=== PATIENT | male | born 1960 | race Caucasian/White ===

== ENCOUNTER 2024-01-05 10:39 | Outpatient (CLI) | payer OTHER, SELFPAY ==
[2024-01-05 11:04] LABS: Basophils Absolute Auto 0.05 K/mm3 (0.00-0.10); Basophils Percent Auto 0.5 % (0.0-1.0); Eosinophils Absolute Auto 0.17 K/mm3 (0.02-0.50); Eosinophils Percent Auto 1.6 % (1.0-6.0); Hematocrit 31.9 % (37.0-46.0); Hemoglobin 10.3 g/dL (12.4-15.3); Immature Granulocyte Absolute 0.08 K/mm3 (0.00-0.00); Immature Granulocyte Percent A 0.8 % (0.0-0.0); Lymphocytes Absolute Auto 2.12 K/mm3 (1.10-4.50); Lymphocytes Percent Auto 20.4 % (18.0-42.0); Mean Corpuscular HGB Conc 32.3 g/dL (32-36); Mean Corpuscular Hemoglobin 25.2 pg (27.0-31.0); Mean Platelet Volume 7.7 fl (8.7-11.0); Monocytes Absolute Auto 0.57 K/mm3 (0.10-0.90); Monocytes Percent Auto 5.5 % (2.0-11.0); Neutrophils Absolute Auto 7.41 K/mm3 (1.70-7.20); Neutrophils Percent Auto 71.2 % (50.0-70.0); Platelet Count Result 216 K/mm3 (150-420); Red Blood Count 4.09 M/mm3 (4.70-6.10); White Blood Count 10.4 K/mm3 (4.8-10.8)
[2024-01-05 11:53] LABS: Alanine Aminotransferase 17 U/L (16-63); Albumin Level 2.9 g/dL (3.4-5.0); Alkaline Phosphatase 87 U/L (46-116); Anion Gap 8 mmol/L (4-12); Aspartate Amino Transferase 11 U/L (15-37); Bilirubin,Total 0.3 mg/dL (0.00-1.00); Blood Urea Nitrogen 31 mg/dL (7-18); Carbon Dioxide 28 mmol/L (21-32); Chloride 93 mmol/L (98-108); Cholesterol 104 mg/dL (0-200); Estimated Glomerular Filt Rate > 60; Glucose 136 mg/dL (70-99); HDL Direct 38 mg/dL (40-60); LDL Cholesterol Calculated 30 mg/dL (<130); Osmolality Calculated 276 mOsm/kg (285-295); Potassium 4.9 mmol/L (3.5-5.1); Prostate Specific Antigen 0.6 ng/mL (< OR = 4.0); Sodium 129 mmol/L (136-145); Total Protein 7.7 g/dL (6.4-8.2); Triglycerides 181 mg/dL (0-150); Uric Acid 3.4 mg/dL (3.5-7.2)
[2024-01-05 11:55] LABS: Thyroid Stimulating Hormone Reflex < 0.01 u/IU/mL (0.36-3.74)
== END 2024-01-05 10:40 | disposition home or self-care (01) ==
LOC: CHSLAB 10:46
PROVIDERS: PCP Family Medicine; Visit Provider Family Medicine
DX: E03.9 Hypothyroidism, unspecified (principal); N40.0 Benign prostatic hyperplasia without lower urinary tract symptoms; R35.1 Nocturia; M10.9 Gout, unspecified; I50.9 Heart failure, unspecified; Z12.5 Encounter for screening for malignant neoplasm of prostate
CPT/HCPCS: 36415; 80053; 80061; 84153; 84439; 84443; 84550; 85025; G0103

== ENCOUNTER 2024-01-06 09:50 | Outpatient (CLI) | payer OTHER, SELFPAY ==
--- NOTE | 2024-01-06 11:21 | SIXMINWLK ---
Six Minute Walk Test PFT: Six Minute Walk Start: 01/06/24 11:16 Freq: Status: Active Protocol: RPE Activity Type Activity Date Activity User E-sign Co-sign Detail Recorded Client Recorded Date Recorded By Document 01/06/24 10:02 RES [id number] 01/06/24 11:21 RES 01/06/24 10:02 Six Minute Walk Gender M Age 64 Race White Test Phase Resting Oxygen Delivery Room Air Fraction of Inspired Oxygen (%) 21 Pulse Oximetry (90-100 %) 96 Pulse Rate (60-100 beats/min) 67 Activity Tolerance Good Rating of Perceived Dyspnea (PD) +2 Mild, Some Difficulty, Noticeable to the Observer Rate of Perceived Exertion (1) Very Light Activity Stopped/Paused During Testing - Enter Yes Comment if Yes Symptoms at End of Test Other Symptoms Other Symptoms At End of Test Patient took a few steps & stated he needed to stop the test & sit due SOB
== END 2024-01-06 09:51 | disposition home or self-care (01) ==
PROVIDERS: PCP Family Medicine; Visit Provider Family Medicine
DX: J43.9 Emphysema, unspecified (principal)
CPT/HCPCS: 94060; 94726; 94729

== ENCOUNTER 2024-01-07 14:59 | Outpatient (CLI) | payer OTHER, SELFPAY ==
[2024-01-07 15:44] LABS: Occult Blood Negative (Negative)
== END 2024-01-07 15:00 | disposition home or self-care (01) ==
PROVIDERS: PCP Family Medicine; Visit Provider Family Medicine
DX: R19.7 Diarrhea, unspecified (principal)
CPT/HCPCS: 82272

== ENCOUNTER 2024-07-08 13:04 | Emergency (ER) | payer OTHER, SELFPAY ==
[2024-07-08] VITALS (25 sets, daily range): BP systolic 76–135; BP diastolic 42–90; PULSE 59–81; RESP 13–26; TEMP 36.6; O2SAT 95–100
--- NOTE | ~2024-07-08 | CT_ITS ---
CT diagnostic chest wo con Ordering provider: Marck Graves MD History: 64 years Male with . weakness/ dyspnea x1 week; worsening . Comparison: None. Technique: CT chest without IV contrast.Radiation reduction technique utilized.The dose-length produc t was 331.3 mGy-cm. FINDINGS: VISUALIZED THORACIC INLET: Normal. MEDIASTINUM: Aorta/coronary arteries: Mild atheromatous disease. Heart/other: The heart is not enlarged. Lymph nodes:. Paratracheal lymph node is seen measuring 2.1 x 1 cm. Small prevascular lymph nodes are noted. Subcarinal lymph node is seen measuring 2.2 x 1.7 cm. LUNGS: Soft tissue density in the right lower lobe medially which may indicate atelectasis. Pneumonia and a mass are in the differential. Small right pleural effusion is seen. Tree-in-bud appearance is seen in the right upper lobe posteriorly which is most likely post infection. Atelectatic areas seen in the middle lobe and lingula. No pulmonary nodules. No pneumothorax. VISUALIZED UPPER ABDOMEN: Atherosclerotic changes of the aorta and branches. Otherwise, the visualize d upper abdomen is normal. MUSCULOSKELETAL: Soft tissues: The superficial soft tissues are normal. Bones: Age appropriate degenerative changes of the spine. IMPRESSION: 1. Soft tissue density in the right lower lobe posteromedially suggestive of atelectasis involving t he majority of the right lower lobe. Pneumonia or underlying mass cannot be excluded.Follow-up and i f clinically warranted further evaluation is advised.. 2. Minimal tree-in-bud appearance in the right upper lobe posteriorly which may be post infection. 3. Lymphadenopathy in the mediastinum. Reviewed, dictated and finalized at location A. IMPRESSION: 1. Soft tissue density in the right lower lobe posteromedially suggestive of a telectasis involving the majority of the right lower lobe. Pneumonia or underly ing mass cannot be excluded.Follow-up and if clinically warranted further eval uation is advised.. 2. Minimal tree-in-bud appearance in the right upper lobe posteriorly which ma y be post infection. 3. Lymphadenopathy in the mediastinum.
--- NOTE | ~2024-07-08 | XR_ITS ---
EXAMINATION: XR chest 1V portable DATE: 07/08/2024 13:23 INDICATION: One week of worsening generalized weakness TECHNIQUE: frontal view of the chest was obtained. COMPARISON: Chest radiograph dated 06/08/2009 FINDINGS: There is asymmetric volume loss in the right hemithorax with depression of the right hilum and triang ular retrocardiac opacity with well-defined lateral margin which projects over the heart at the media l lower lung zone consistent with right lower lobe collapse. There is additional linear discoid atele ctasis/scarring near the right costophrenic angle. Likely compensatory hyperexpansion of the right up per lobe with some increased lucency and architectural distortion in the right upper lung zone. Left lung is clear. No pneumothorax or left pleural effusion. There is blunting at the right costophrenic angle which could be related to the previous noted right lower lobe collapse versus a very small righ t pleural effusion. No evident pulmonary edema. Heart size is normal with mild rightward shift the he art and mediastinum resulting from the bone loss in right hemithorax. IMPRESSION: 1. Right lower lobe collapse of indeterminate etiology with additional discoid atelectasis in the rig ht middle lobe. Correlate clinically and would recommend either radiographic follow-up to resolution, pulmonary toilet fissures concerning for mucous plugging or further evaluation with either bronchosc opy or contrast enhanced CT as clinically indicated. Reviewed, dictated and finalized at location A. IMPRESSION: 1. Right lower lobe collapse of indeterminate etiology with additional discoid atelectasis in the right middle lobe. Correlate clinically and would recommend either radiographic follow-up to resolution, pulmonary toilet fissures concerni ng for mucous plugging or further evaluation with either bronchoscopy or contra st enhanced CT as clinically indicated.
--- NOTE | 2024-07-08 13:15 | ECG_ITS ---
Test Date: 2024-07-08 14:07:51 Measurements Intervals [place] Rate: 61 P: -3 NV: 169 QRS: 49 QRSD: 118 T: 58 QT: 394 QTc: 397 Interpretive Statements SINUS RHYTHM EARLY PRECORDIAL R/S TRANSITION No previous ECG available for comparison Electronically Signed On 07-08-2024 17:19:22 CDT by Jorge Marley M.D.
[2024-07-08] MEDS: SODIUM CHLORIDE 0.9% IV 1,000 ML 999 ML IV CONT ×3 (13:42→17:00)
[2024-07-08 13:57] LABS: Basophils Absolute Auto 0.03 K/mm3 (0.00-0.10); Basophils Percent Auto 0.4 % (0.0-1.0); Eosinophils Absolute Auto 0.07 K/mm3 (0.02-0.50); Eosinophils Percent Auto 0.8 % (1.0-6.0); Hematocrit 27.9 % (37.0-46.0); Hemoglobin 8.7 g/dL (12.4-15.3); Immature Granulocyte Absolute 0.03 K/mm3 (0.00-0.00); Immature Granulocyte Percent A 0.4 % (0.0-0.0); Lymphocytes Percent Auto 13.2 % (18.0-42.0); Mean Corpuscular HGB Conc 31.2 g/dL (32-36); Mean Corpuscular Hemoglobin 24.8 pg (27.0-31.0); Mean Corpuscular Volume 79.5 fL (78.0-102.0); Mean Platelet Volume 8.9 fl (8.7-11.0); Monocytes Absolute Auto 0.29 K/mm3 (0.10-0.90); Monocytes Percent Auto 3.5 % (2.0-11.0); Neutrophils Percent Auto 81.7 % (50.0-70.0); Platelet Count Result 180 K/mm3 (150-420); Red Blood Count 3.51 M/mm3 (4.70-6.10); Red Cell Distribution Width 18.5 % (11.6-14.4); White Blood Count 8.3 K/mm3 (4.8-10.8)
[2024-07-08 14:05] LABS: Alanine Aminotransferase 13 U/L (6-50); Albumin Level 4.2 g/dL (3.5-5.1); Alkaline Phosphatase 50 U/L (38-126); Anion Gap 20 mmol/L (4-12); Aspartate Amino Transferase 24 U/L (17-59); Bilirubin,Total 0.3 mg/dL (0.2-1.3); Blood Urea Nitrogen > 120 mg/dL (9-20); Calcium 8.2 mg/dL (8.4-10.2); Carbon Dioxide 11 mmol/L (22-30); Chloride 99 mmol/L (98-107); Estimated Glomerular Filt Rate 7; Glucose 113 mg/dL (65-110); Osmolality Calculated 309 mOsm/kg (285-295); Sodium 130 mmol/L (137-145); Total Protein 8.4 g/dL (6.3-8.2)
[2024-07-08 14:06] LABS: Lactic Acid Reflex 0.6 mmol/L (0.4-2.0)
[2024-07-08 14:17] LABS: NT Pro B Type Natriuretic Pept 342 pg/mL (19.9-100); Troponin I < 0.012 ng/mL (0.000-0.034)
[2024-07-08 14:23] LABS: Estimated CRCL calculation 9 ml/min
[2024-07-08 14:25] LABS: Potassium 6.9 mmol/L (3.4-5.0)
[2024-07-08 14:32] LABS: Influenza A QL RT-PCR Negative (Negative); Influenza B QL RT-PCR Negative (Negative); RSV RNA, RT-PCR Negative (Negative); SARS-CoV-2 RNA PCR Negative (Negative)
[2024-07-08] MEDS: SODIUM POLYSTYRENE SULFONONATE 15 GM/60 ML BTL PO (14:50)
[2024-07-08] MEDS: CALCIUM GLUCONATE 1,000 MG/10 ML VIAL 1000 MG IV PUSH (14:50)
[2024-07-08] MEDS: ALBUTEROL SULFATE NEB 2.5 MG/3 ML INH INHALATION (14:53)
--- NOTE | 2024-07-08 14:54 | PC.NURSE ---
covid culture sent to lab
[2024-07-08 15:01] LABS: Base Excess ABG -13.4 mmol/L (0-2); HCO3 ABG 11.9 mmol/L (23-29); Oxyhemoglobin 94.5 % (94-100); PO2 ABG 91.3 mmHg (75-85); pH ABG 7.28 (7.35-7.45)
--- NOTE | 2024-07-08 15:04 | PC.NURSE ---
Test results discussed w/ pt and his son, POC for CT to be done and pts wasnts transfer to [facility] for further care if needed.
[2024-07-08 15:05] LABS: Device ROOM AIR; Modified Allen's Test Pass; Site Drawn LEFT RADIAL
[2024-07-08] MEDS: SODIUM BICARBONATE 8.4% 50 MEQ/50 ML SYRINGE 88 MEQ IV PUSH (15:16)
[2024-07-08 15:31] LABS: Add Urine Microscopic? NO; Appearance Urine Clear (Clear); Bilirubin Urine Negative (Negative); Blood Urine Trace-intact (Negative); Color Urine Light Yellow (Yellow); Glucose Urine UA Negative (Negative); Ketones Urine Negative (Negative); Leukocyte Esterase Ur Negative LEU/UL (Negative); Nitrate Urine Negative (Negative); Protein Urine Negative (Negative); Urobilinogen Urine 0.2 mg/dL (0.2-1.0); pH Urine 5.5 (5.0-8.0)
--- NOTE | 2024-07-08 16:04 | ED_ITS ---
HPI - Dizziness General Chief Complaint: Dizziness Stated Complaint: dizzy, weak Time Seen by Provider: 07/08/24 13:05 Source: patient and family Mode of arrival: wheelchair Limitations: physical limitation and clinical condition History of Present Illness HPI Narrative: this is a 64-year-old male with a history of hypertension, hyperlipidemia and benign prostatic hypertrophy presents with some increased weakness over the last couple weeks getting worse over the last couple of days patient said he just has not been feeling well and has not been eating very well for the last couple weeks. Patient denies chest pain there is no abdominal pain no shortness of breath no cough or congestion no fever chills no nausea or vomiting no dysuria or hematuria. MD elicited complaint: lightheadedness and difficulty walking Onset (ago): day(s) Timing: sudden onset Severity: severe Related Data Home Medications ?Medication ?Instructions ?Recorded ?Confirmed ?Last Taken ?Type allopurinol 300 mg tablet 300 mg PO DAILY 01/05/24 Unknown History aspirin 81 mg tablet,delayed 81 mg PO DAILY 01/05/24 Unknown History release cyclobenzaprine 10 mg tablet 10 mg PO ONCE 01/05/24 Unknown History fenofibrate 160 mg tablet 160 mg PO DAILY 01/05/24 Unknown History metoprolol tartrate 50 mg tablet 50 mg PO BID 01/05/24 Unknown History Allergies Allergy/AdvReac Type Severity Reaction Status Date / Time No Known Allergies Allergy Unverified 01/05/24 10:02 Review of Systems 2 Review of Systems: All systems reviewed & are unremarkable except as noted in HPI and below PMFSH Past Medical History Medical History Emphysema lung BPH (benign prostatic hyperplasia) HLD (hyperlipidemia) Family History Family History Father Diabetes mellitus Mother Diabetes mellitus Other Heart disease Social History Social History Smoking status: Former smoker Alcohol intake: former Substance use: never Do You Feel Safe in your Home?: Yes Lack of Transportation: No Lack of Food: Never True Gender identity (if verbalized by the patient): Male Sexual Orientation (if Verbalized by the Patient): Straight or Heterosexual Exam 2 Const: General: ill appearing Nutritional Appearance: thin O rientation/consciousness: patient oriented x3 Limitations: physical limitations HENMT: Head: normal to inspection Eyes: Conjunctivae: conjunctivae normal Pupils: Equal, round and reactive pupils present Chest: Chest palpation & inspection: normal inspection of the chest Resp: Effort & Inspection: normal respiratory effort Auscultation: clear to auscultation bilaterally Cardio: Rate: regular rate Rhythm: regular rhythm GI: GI Palp: Yes Soft to palpation Auscultation: normal bowel sounds : General: Yes bladder normal to palpation Urinary Catheter: Urinary Catheter: patent and draining Back/Spine/Pelvis: Back: no CVA tenderness Skin: General skin exam: normal color Rashes: no rashes Wounds: no wounds Neuro: General: patient oriented x3, moves all extremities, no meningeal signs and no focal motor deficits Extrem: General: normal to inspection, no clubbing, cyanosis or edema and no pedal edema Course Course Emergency Course: Patient had blood work performed CMP which shows potassium 6.9 with a creatinine of 7.65 with an anion gap of 20. Patient had a normal troponin lactic acid was 0.6 with a BNP of 342. Chest x-ray showed right lower lobe all atelectasis with some scarring chest CT without contrast performed shows soft tissue density in the right lower lobe suggestive of atelectasis involving the majority of the right lower lobe. Pneumonia or underlying mass cannot be excluded. Patient had a potassium of 6.9 and was given Kayexalate, calcium gluconate and albuterol nebulizer treatment. Patient had ABGs which showed metabolic acidosis with ABG of 7.28 with a pCO2 of 26 and a bicarb of 11.9 and received an amp of bicarb. Patient initially was hypotensive with a blood pressure of 90/48 received 2L of normal saline blood pressure currently at 112/51. Patient is a DNR with selective treatment. Patient started on D5 with thiamine and folic acid and patient accepted by hospitalist at [facility]. Vital Signs Vital signs: Vital Signs Temperature 36.6 C 07/08/24 13:05 Pulse Rate 62 07/08/24 13:05 Respiratory Rate 18 07/08/24 13:05 Blood Pressure 109/61 07/08/24 13:05 Pulse Oximetry 95 07/08/24 13:05 Oxygen Delivery Room Air 07/08/24 13:05 Temperature 36.6 C 07/08/24 13:05 Pulse Rate 61 07/08/24 15:31 Respiratory Rate 13 07/08/24 15:31 Blood Pressure 115/68 07/08/24 15:31 Pulse Oximetry 99 07/08/24 15:31 Oxygen Delivery Room Air 07/08/24 13:05 MDM - Dizziness Lab Data 07/08/24 13:48 07/08/24 13:48 Labs: Lab Results 07/08/24 07/08/24 07/08/24 Range/Units 13:35 13:48 14:59 WBC 8.3 (4.8-10.8) K/mm3 RBC 3.51 L (4.70-6.10) M/mm3 Hgb 8.7 L (12.4-15.3) g/dL Hct 27.9 L (37.0-46.0) % MCV 79.5 (78.0-102.0) fL MCH 24.8 L (27.0-31.0) pg MCHC 31.2 L (32-36) g/dL RDW 18.5 H (11.6-14.4) % Plt Count 180 (150-420) K/mm3 MPV 8.9 (8.7-11.0) fl Immature Gran % (Auto) 0.4 H (0.0-0.0) % Neut % (Auto) 81.7 H (50.0-70.0) % Lymph % (Auto) 13.2 L (18.0-42.0) % [place] % (Auto) 3.5 (2.0-11.0) % Eos % (Auto) 0.8 L (1.0-6.0) % Baso % (Auto) 0.4 (0.0-1.0) % Lymph # (Auto) 1.10 (1.10-4.50) K/mm3 [place] # (Auto) 0.29 (0.10-0.90) K/mm3 Eos # (Auto) 0.07 (0.02-0.50) K/mm3 Baso # (Auto) 0.03 (0.00-0.10) K/mm3 Abs Immat Gran (auto) 0.03 H (0.00-0.00) K/mm3 Absolute Neuts (auto) 6.80 (1.70-7.20) K/mm3 Absolute Nucleated RBC 0.00 (0.00-0.00) K/mm3 Nucleated RBC % 0.0 (0-0.0) % Sodium 130 L (137-145) mmol/L Potassium 6.9 H* (3.4-5.0) mmol/L Chloride 99 (98-107) mmol/L Carbon Dioxide 11 L (22-30) mmol/L Anion Gap 20 H (4-12) mmol/L BUN > 120 H (9-20) mg/dL Creatinine 7.65 H (0.7-1.3) mg/dL Estim Creat Clear Calc 9 ml/min Estimated GFR 7 L (59 - ) Glucose 113 H (65-110) mg/dL Calculated Osmolality 309 H (285-295) mOsm/kg Lactic Acid 0.6 (0.4-2.0) mmol/L Calcium 8.2 L (8.4-10.2) mg/dL Total Bilirubin 0.3 (0.2-1.3) mg/dL AST 24 (17-59) U/L ALT 13 (6-50) U/L Alkaline Phosphatase 50 (38-126) U/L Troponin I < 0.012 (0.000-0.034) ng/mL NT-Pro-B Natriuret Pep 342 H (19.9-100) pg/mL Total Protein 8.4 H (6.3-8.2) g/dL Albumin 4.2 (3.5-5.1) g/dL Urine Color Light yellow (Yellow) Urine Appearance Clear (Clear) Urine pH 5.5 (5.0-8.0) Ur Specific [place] 1.010 (1.010-1.020) Urine Protein Negative (Negative) Urine Glucose (UA) Negative (Negative) Urine Ketones Negative (Negative) Ur Blood (Man) Trace-intact H (Negative) Urine Nitrate Negative (Negative) Urine Bilirubin Negative (Negative) Urine Urobilinogen 0.2 (0.2-1.0) mg/dL Leukocyte Esterase Rfl Negative (Negative) BETH/UL Influenza A (RT-PCR) Negative (Negative) Influenza B (RT-PCR) Negative (Negative) RSV (RT-PCR) Negative (Negative) SARS-CoV-2 RNA (RT-PCR) Negative (Negative) ABG Data ABG results: 07/08/24 14:59 Puncture Site Left radial ABG pH 7.28 L ABG pCO2 26.0 L ABG pO2 91.3 H ABG HCO3 11.9 L ABG O2 Saturation 95.0 ABG Base Excess -13.4 L Oxyhemoglobin 94.5 O2 Delivery Device Room air O2 Liters/Min 0.0 Critical Care Time Critical Care Time Critical Care Time: Yes Total Critical Care Time: 30 Discharge Plan Discharge Clinical Impression: Acute hyperkalemia, Acute kidney failure, Acute pneumonia, Metabolic acidosis Patient Disposition: Acute Care Hospital Condition: Stable Patient Language: Kinyarwanda Prescriptions: No Action albuterol sulfate 90 mcg/actuation HFA aerosol inhaler 1 inh inhalation Q4H Qty: 8.5 0RF cyclobenzaprine 10 mg tablet 10 mg PO ONCE Rx Instructions: take 1/2-1 tablet daily. metoprolol tartrate 50 mg tablet 50 mg PO BID fenofibrate 160 mg tablet 160 mg PO DAILY allopurinol 300 mg tablet 300 mg PO DAILY aspirin 81 mg tablet,delayed release (DR/EC) 81 mg PO DAILY Breztri Aerosphere 160-9-4.8 mcg/actuation HFA aerosol inhaler 2 inh inhalation BID Qty: 10.7 10RF atorvastatin 20 mg tablet See Rx Instructions .ROUTE .COMPLEX Qty: 90 0RF Dose Instruction: TAKE 1 (ONE) TABLET AT BEDTIME FOR CHOLESTEROL Rx Instructions: TAKE 1 (ONE) TABLET AT BEDTIME FOR CHOLESTEROL tamsulosin 0.4 mg capsule See Rx Instructions .ROUTE .COMPLEX Qty: 90 0RF Dose Instruction: TAKE ONE CAPSULE BY MOUTH DAILY FOR PROSTATE Rx Instructions: TAKE ONE CAPSULE BY MOUTH DAILY FOR PROSTATE furosemide 80 mg tablet See Rx Instructions .ROUTE .COMPLEX Qty: 180 0RF Dose Instruction: 1 TABLET TWO TIMES DAILY FOR WATER PILL Rx Instructions: 1 TABLET TWO TIMES DAILY FOR WATER PILL omeprazole 20 mg capsule,delayed release(DR/EC) See Rx Instructions .ROUTE .COMPLEX Qty: 90 0RF Dose Instruction: TAKE ONE CAPSULE BY MOUTH DAILY ON EMPTY STOMACH Rx Instructions: TAKE ONE CAPSULE BY MOUTH DAILY ON EMPTY STOMACH potassium chloride 10 mEq tablet extended release See Rx Instructions .ROUTE .COMPLEX Qty: 180 0RF Dose Instruction: TAKE TWO TABLETS BY MOUTH DAILY Rx Instructions: TAKE TWO TABLETS BY MOUTH DAILY levothyroxine 175 mcg tablet See Rx Instructions .ROUTE .COMPLEX Qty: 90 0RF Dose Instruction: TAKE ONE TABLET BY MOUTH DAILY Rx Instructions: TAKE ONE TABLET BY MOUTH DAILY Follow-up/Referrals: Kole Sapp DO [Primary Care Provider] - Time of Disposition: 17:47
[2024-07-08] MEDS: levoFLOXacin 500 MG/D5W 100 ML 500 MG/100 ML BAG 100 MG IVPB (16:08)
--- NOTE | 2024-07-08 16:38 | PC.NURSE ---
Pt resting, continuing to monitor. VSS, Updated pt and son on POC and wait time for [facility] to call back.
[2024-07-08 16:45] LABS: Anion Gap 19 mmol/L (4-12); Blood Urea Nitrogen > 120 mg/dL (9-20); Carbon Dioxide 13 mmol/L (22-30); Chloride 102 mmol/L (98-107); Estimated CRCL calculation 11 ml/min; Estimated Glomerular Filt Rate 9; Glucose 113 mg/dL (65-110); Osmolality Calculated 317 mOsm/kg (285-295); Sodium 134 mmol/L (137-145)
[2024-07-08] MEDS: SODIUM ZIRCONIUM CYCLOSILICATE 5 GM POWD.PACK 10 GM PO (16:46)
--- NOTE | 2024-07-08 16:49 | PC.NURSE ---
Pt c/o dizziness and H/A and not feeling well if trying to stand, Pt repositioned in bed and bedding fixed under pt. Continuing to monitor and await call back from [facility]
[2024-07-08] MEDS: SODIUM CHLORIDE 0.9% IV 1,000 ML 100 ML IV CONT (17:43)
--- NOTE | 2024-07-08 18:30 | PC.NURSE ---
Called report to Rekha at [facility] and bed recieved for transfer
[2024-07-08] MEDS: THIAMINE HCL INJ 100 MG, FOLIC ACID 1 MG, MULTIVITAMINS-12 INJ 10 ML, MAGNESIUM SULFATE... IV CONT (18:46)
--- NOTE | 2024-07-10 12:52 | PC.NURSE ---
Preliminary blood culture report; no growth to date.
--- NOTE | 2024-07-15 13:03 | PC.NURSE ---
final blood cultures x2 reviewed. no growth after 5 days. no change in plan of care
== END 2024-07-08 19:24 | disposition short-term general hospital (02) ==
PROVIDERS: Emergency Provider Emergency Medicine; PCP Family Medicine
DX: N17.9 Acute kidney failure, unspecified (principal); J18.9 Pneumonia, unspecified organism; E87.20 Acidosis, unspecified; E87.5 Hyperkalemia; I10 Essential (primary) hypertension; E78.5 Hyperlipidemia, unspecified; J43.9 Emphysema, unspecified; Z87.891 Personal history of nicotine dependence; Z20.822 Contact with and (suspected) exposure to COVID-19
CPT/HCPCS: 36415; 36600; 71045; 71250; 80048; 80053; 81003; 82805; 83605; 83880; 84484; 85025; 87040; 87637; 93005; 94640; 96361; 96365; 96366; 96367; 96375; 99285; A9270; J0612; J1956; J3411; J3475; J7030; J7121

== ENCOUNTER 2024-07-20 12:35 | Outpatient (CLI) | payer OTHER, SELFPAY ==
[2024-07-20 12:55] LABS: Basophils Absolute Auto 0.02 K/mm3 (0.00-0.10); Basophils Percent Auto 0.3 % (0.0-1.0); Eosinophils Absolute Auto 0.14 K/mm3 (0.02-0.50); Eosinophils Percent Auto 2.3 % (1.0-6.0); Hematocrit 30.8 % (37.0-46.0); Hemoglobin 9.1 g/dL (12.4-15.3); Immature Granulocyte Absolute 0.02 K/mm3 (0.00-0.00); Immature Granulocyte Percent A 0.3 % (0.0-0.0); Lymphocytes Absolute Auto 1.32 K/mm3 (1.10-4.50); Mean Corpuscular HGB Conc 29.5 g/dL (32-36); Mean Corpuscular Hemoglobin 25.6 pg (27.0-31.0); Mean Corpuscular Volume 86.8 fL (78.0-102.0); Mean Platelet Volume 8.2 fl (8.7-11.0); Monocytes Absolute Auto 0.41 K/mm3 (0.10-0.90); Monocytes Percent Auto 6.8 % (2.0-11.0); Neutrophils Absolute Auto 4.08 K/mm3 (1.70-7.20); Neutrophils Percent Auto 68.3 % (50.0-70.0); Platelet Count Result 164 K/mm3 (150-420); Red Blood Count 3.55 M/mm3 (4.70-6.10); Red Cell Distribution Width 21.1 % (11.6-14.4)
[2024-07-20 13:13] LABS: Alanine Aminotransferase 32 U/L (6-50); Albumin Level 3.6 g/dL (3.5-5.1); Alkaline Phosphatase 106 U/L (38-126); Anion Gap 4 mmol/L (4-12); Aspartate Amino Transferase 31 U/L (17-59); Bilirubin,Total 0.4 mg/dL (0.2-1.3); Blood Urea Nitrogen 11 mg/dL (9-20); Calcium 8.6 mg/dL (8.4-10.2); Carbon Dioxide 27 mmol/L (22-30); Chloride 108 mmol/L (98-107); Estimated Glomerular Filt Rate > 60; Glucose 117 mg/dL (65-110); Osmolality Calculated 288 mOsm/kg (285-295); Potassium 4.7 mmol/L (3.4-5.0); Sodium 139 mmol/L (137-145)
== END 2024-07-20 12:36 | disposition home or self-care (01) ==
LOC: CHSLAB 12:35
PROVIDERS: PCP Family Medicine; Visit Provider Family Medicine
DX: I50.9 Heart failure, unspecified (principal)
CPT/HCPCS: 36415; 80053; 85025

== ENCOUNTER 2024-09-06 09:40 | Outpatient (CLI) | payer OTHER, SELFPAY ==
--- NOTE | ~2024-09-06 | CT_ITS ---
EXAMINATION: CT pelvis wo con DATE: 09/06/2024 09:58 INDICATION: BPH TECHNIQUE: Computed tomography (CT) of the pelvis was performed without intravenous contrast. Automat ed exposure control and iterative reconstruction technique were employed. The dose-length product was 717.48 mGy-cm. COMPARISON: None FINDINGS: Normal appendix. No large or small bowel dilation. Severe sigmoid diverticulosis, without i nflammatory changes. Urinary bladder decompressed by Gaona catheter. Gas in the bladder lumen. Marked bladder wall thickening and surrounding inflammatory change. Mild distal ureteral dilation and periu reteral stranding. Mild prostatomegaly, with calcification. Smaller comminuted bilateral fat-containi ng inguinal hernias. Lumbar degenerative disc disease. Mild bilateral hip osteoarthritis. Enlarged le ft inguinal lymph nodes. IMPRESSION: Severe bladder wall thickening and inflammatory change concerning for cystitis. Mild distal ureterectasis and inflammatory change may represent early ascending infection. Left inguinal lymphadenopathy. Reviewed, dictated and finalized at location K.
--- OUTSIDE RECORDS SUMMARY | 2024-09-06 09:48 | XMS_ITS | Encounter Summary ---
Author Organization [facility] Address [address] [place] [id number] Care Team Providers Care Cad Manager Name Role Phone Dilia Hernandez MD Primary Care Provider [phone] Sadiq Brooks MD Unavailable Gaetano Steward MD Unavailable [phone] Dilia Hernandez MD Primary Care Provider [phone] Kole Sapp DO Primary Care Provider [phone] Encounter Details Date Type Department Care Team (Late st Contact Info) Description 07/23/2018 Abstract [facility] [address] [place] [address] , Generic ConversionMD Social History Tobacco Use Types Packs/Day Years Used Date Smoking Tobacco: Every Day Cigarettes Smokeless Tobacco: Never Alcohol Use Standard Drinks/Week Comments No 0 (1 standard drink = 0.6 oz pur e alcohol) Sex and Gender Information Value Date Recorded Sex Assigned at Male 07/09/2024 12:26 AM CDT Legal Sex Male 10:15 PM CDT Gender Identity Male 07/09/2024 12:26 AM CDT Sexual Orientation Not on file 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 Not on file Not on file worked at [employer] Not on file Not on file Not on file now disabled since 2005 Not on file Not on file Not on file documented as of this encounter Plan of Treatment Not on file documented as of this encounter Visit Diagnoses Not on filedocumented in this encounter Care Teams Cad Manager Relationship Specialty Start Date End Date Dilia Hernandez MD [address] [place] [address] PCP - General FAMILY PRACTICE 12/12/15 01/12/19 Dilia Hernandez MD [address] [place] [address] PCP - General FAMILY PRACTICE 01/13/19 07/10/24 Kole Sapp DO [address] [place] [address] PCP - General FAMILY PRACTICE 07/11/24 Sadiq Brooks MD [address] [place] [address] CARDIOVASCULAR DISEASE 02/05/17 Gaetano Steward MD [address] [place] [address] [employer] Manager CARDIOVASCULAR DISEASE 02/02/18 07/26/24 documented as of this encounter
--- OUTSIDE RECORDS SUMMARY | 2024-09-06 09:48 | XMS_ITS | Encounter Summary ---
Author Organization [facility] Address [address] [place] [address] Care Team Providers Care Pathology Assistant Name Role Phone Rosa Isela Sanchez NP Unavailable [phone] Miguel Angel Cochran MD Unavailable [phone] Dilia Hernandez MD Primary Care Provider [phone] Sadiq Brooks MD Unavailable Gaetano Steward MD Unavailable [phone] Dilia Hernandez MD Primary Care Provider [phone] Kole Sapp DO Primary Care Provider [phone] Encounter Details Date Type Department Care Team (Late st Contact Info) Description 01/18/2013 Abstract [facility] AT [address] [place] [address] Miguel Angel Cochran MD [address] [place] [address], [address] [place] [address] Social History Tobacco Use Types Packs/Day Years Used Date Smoking Tobacco: Smoker, Current Status Unknown Cigarettes Alcohol Use Standard Drinks/Week Comments No 0 [...] on file Not on file worked at [employer] Not on file Not on file Not on file now disabled since 2005 Not on file Not on file Not on file documented as of this encounter Plan of Treatment Not on file documented as of this encounter Visit Diagnoses Not on filedocumented in this encounter Care Teams Pathology Assistant Relationship Specialty Start Date End Date Dilia Hernandez MD [address] [place] [phone] PCP - General FAMILY PRACTICE 12/12/15 01/12/19 Dilia Hernandez MD [address] [place] [address] PCP - [facility] PRACTICE 01/13/19 07/10/24 Koel Sapp DO [address] [place] [address] PCP - General FAMILY PRACTICE 07/11/24 Rosa Isela Sanchez NP [address] [facility] [address] [place] [phone] NURSE PRACTITIONER 12/12/15 02/01/18 Miguel Angel Cochran MD [address] [facility] [address] [place] [id number] [place] [employer] CARDIOVASCULAR DISEASE 12/12/15 02/01/18 Sadiq Broosk MD [address] [place] [phone] CARDIOVASCULAR DISEASE 02/05/17 Gaetano Steward MD [address] [place] [address] [employer] [employer] CARDIOVASCULAR DISEASE 02/02/18 07/26/24 documented as of this encounter
--- OUTSIDE RECORDS SUMMARY | 2024-09-06 09:48 | XMS_ITS | Clinical Summary ---
Author Organization [facility] Address [address] [place] [address] Care Team Providers Care Remedial Reading Teacher Name Role Phone Sadiq Brooks MD Unavailable Kole Sapp DO Primary Care Provider [phone] Allergies No known active allergies Medications tamsulosin (FLOMAX) 0.4 MG Cap Take 1 tablet by mouth daily. 3 Active atorvastatin 20 MG tablet Take 1 tablet (20 mg total) by mouth daily. Active Albuterol Sulfate, sensor, (PROAIR DIGIHALER) 108 (90 Base) MCG/ACT AEROSOL POWDER, BREATH ACTIVATED Active aclidinium 400 MCG/ACT inhaler Inhale 1 puff into the lungs 2 (two) times daily. Active allopurinol 300 MG tablet Take 1 tablet (300 mg total) by mouth daily. Active omeprazole (PRILOSEC) 20 MG capsule Take 2 capsules (40 mg total) by mouth daily. 5 Active aspirin EC 81 MG tablet Take 1 tablet (81 mg total) by mouth daily. 90 tablet 5 Active ferrous sulfate, 65 mg elemental, 325 (65 FE) MG tablet Take 1 tablet (325 mg total) by mouth daily with breakfast. 90 tablet 5 Active hyoscyamine (LEVSIN) 0.125 MG TABLET DISPERSIBLE Take 1 tablet (0.125 mg total) by mouth every 6 (six) hours as needed. Take every 6 hours as needed for Bladder Spasms 180 tablet 5 Active levothyroxine (SYNTHROID) 150 MCG tablet Take 1 tablet (150 mcg total) by mouth every morning. 30 tablet 5 Active metoprolol tartrate (LOPRESSOR) 50 MG tablet Take 0.5 tablets (25 mg total) by mouth 2 (two) times daily. 60 tablet 5 Active solifenacin (VESICARE) 5 MG tablet Take 1 tablet (5 mg total) by mouth daily. Take while [place] in place for bladder spasm 30 tablet 5 Active Active Problems Problem Noted Date Diagnosed Date Metabolic acidosis 07/08/2024 Coronary artery disease invo lving [place] coronary artery of [place] heart without angina pectoris 03/17/2017 Morbid obesity with BMI of 40.0-44.9, adult 02/17 Carotid artery disease 03/02/2017 Pain in both lower extremities 03/02/2017 Smoker 03/02/2017 Essential hypertension 03/02/2017 Hyperlipidemia, unspecified hyperlipidemia type 03/02/2017 Encounters Date Type Department Care Team Description 07/09/2024 Travel 07/08/2024 8:50 PM CDT - 07/17/2024 1:43 PM CDT Hospital Encounter [facility] [address] [place] [address] Lyudmila Henry MD Naveed, MD Parth Gallegos, Maksim Toney MD Discharge Disposition: Home with Home Health Care 07/08/2024 Travel from Last 3 Months Family History Medical History Relation Comments Stroke Sister mini strokes Relation Status Comments Brother cancer Father Maternal Grandfather cancer Maternal Grandmother cancer Mother Paternal Grandfather Paternal Grandmother Sister Alive Social History Tobacco Use Types Packs/Day Years Used Date Smoking Tobacco: Every Day Cigarettes Smokeless Tobacco: Never Tobacco Cessation:Ready to Q uit: No; Counseling Given: Yes Alcohol Use Standard Drinks/Week Comments No 0 (1 standard drink = 0.6 oz pur e alcohol) [facility] Utilities Answer Date Recorded In the past 12 months has e [employer], [employer], oil, or water [employer] threatened to shut off services in your home? No 07/09/2024 Humiliation, Afraid, Rape, and Kick questionnair e Answer Date Recorded Within the last year, have y ou been afraid of your partner or ex-partner? No 07/09/2024 Within the last year, have y ou been humiliated or emotionally abused in other ways by your partner or ex-partner? No Within the last year, have y ou been kicked, hit, slapped, or otherwise physically hurt by your partner or ex-partner? No 07/09/2024 Within the last year, have y ou been raped or forced to have any kind of sexual activity by your partner or ex-partner? No 07/09/2024 Overall Financial Resource Strain (CARDIA) Answe r Date Recorded How hard is it for you to pa y for the very basics like food, housing, medical care, and heating? Not hard at all 07/09/2024 Hunger Vital Sign Answer Date Recorded Within the past 12 months, y ou worried that your food would run out before you got the money to buy more. Never true 07/10/19 Within the past 12 months, t he food you bought just didn't last and you didn't have money to get more. Never true 07/09/2024 PRAPARE - Transportation Answer Date Re corded In the past 12 months, has l ack of transportation kept you from medical appointments or from getting medications? No 06/16 In the past 12 months, has l ack of transportation kept you from meetings, work, or from getting things needed for daily living? No 07/09/2024 Housing Stability Vital Sign Answer Papito e Recorded In the last 12 months, was t here a time when you were not able to pay the mortgage or rent on time? No 07/09/2024 In the past 12 months, how m any times have you moved where you were living? 0 07/09/2024 At any time in the past 12 m [facility], were you homeless or living in a mcc (including now)? 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 worked at [employer] Not on file Not on file Not on file now disabled since 2005 Not on file Not on file Not on file Last Filed Vital Signs Vital Sign Reading Time Taken Comments Blood Pressure 146/48 07/17/2024 7:37 AM CDT Pulse 66 07/17/2024 7:37 AM CDT Temperature 36.7 C (98.1 F) 07/17/2024 7:37 AM CDT Respiratory Rate 16 07/17/2024 7:37 AM CDT Oxygen Saturation 96% 07/17/2024 7:37 AM CDT Inhaled Oxygen Concentration - - Weight 77.5 kg (170 lb 13.7 oz) 07/13/2024 6:00 AM CDT Height 170.2 cm (5' 7) 07/08/2024 9:24 PM CDT Body Mass Index 26.76 07/08/2024 9:24 PM CDT Plan of Treatment Health Maintenance Due Date Last Done Comments ASCVD Statin 1960 Colorectal Cancer Screening Colonoscopy (10 Years) 1960 Hepatitis C 01/05/1976 DTaP, Tdap and Td Vaccines ( 1 - Tdap) 1977 Pneumococcal Vaccine: 50+ Ye ars (1 of 2 - PCV) 1977 Zoster Vaccines (1 of 2) 01/05/2008 ASCVD LDL 08/12/2013 08/12/2012 RSV Immunization or 60+ Years (1 - Risk 60-74 years 1-dose series) 2018 Annual Medicare Wellness Visit 2023 COVID-19 Vaccine (1 - 2023-2 5 season) 2023 Meningococcal B Vaccine Aged Out No l onger eligible based on patient's age to complete this topic Meningococcal Vaccine Aged Out No casey ron eligible based on patient's age to complete this topic RSV Immunizations Under 20 Months Aged Out No longer eligible based on patient's age to complete this topic Procedures Procedure Name Priority Date/Time Associated Diagnosis Comments POCT GLUCOSE - DOCKED DEVICE Routine 07/17/2024 11:00 AM CDT POCT GLUCOSE - DOCKED DEVICE Routine 07/17/2024 6:07 AM CDT BASIC METABOLIC PANEL Routine 07/17/2024 4:56 AM CDT CBC W/DIFF AUTOMATED Routine 07/17/2024 4:56 AM CDT POCT GLUCOSE - DOCKED DEVICE Routine 07/16/2024 8:23 PM CDT POCT GLUCOSE - DOCKED DEVICE Routine 07/16/2024 4:17 PM CDT POCT GLUCOSE - DOCKED DEVICE Routine 07/16/2024 11:11 AM CDT POCT GLUCOSE - DOCKED DEVICE Routine 07/16/2024 5:38 AM CDT POCT GLUCOSE - DOCKED DEVICE Routine 07/15/2024 8:21 PM CDT POCT GLUCOSE - DOCKED DEVICE Routine 07/15/2024 4:24 PM CDT POCT GLUCOSE - DOCKED DEVICE Routine 07/15/2024 11:56 AM CDT POCT GLUCOSE - DOCKED DEVICE Routine 07/15/2024 11:28 AM CDT POCT GLUCOSE - DOCKED DEVICE Routine 07/15/2024 5:26 AM CDT FERRITIN Routine 07/15/2024 3:54 AM CDT IRON SAT PANEL (IRON,IBC,%SAT) Routine 07/15/2024 3:54 AM CDT BASIC METABOLIC PANEL Routine 07/15/2024 3:54 AM CDT CBC W/DIFF AUTOMATED Routine 07/15/2024 3:54 AM CDT POCT GLUCOSE - DOCKED DEVICE Routine 07/14/2024 9:29 PM CDT POCT GLUCOSE - DOCKED DEVICE Routine 07/14/2024 8:48 PM CDT POCT GLUCOSE - DOCKED DEVICE Routine 07/14/2024 4:18 PM CDT POCT GLUCOSE - DOCKED DEVICE Routine 07/14/2024 11:34 AM CDT POCT GLUCOSE - DOCKED DEVICE Routine 07/14/2024 6:13 AM CDT BASIC METABOLIC PANEL Routine 07/14/2024 4:10 AM CDT CBC, AUTO, NO DIFF Routine 07/14/2024 4: 10 AM CDT POCT GLUCOSE - DOCKED DEVICE Routine 07/14/2024 3:59 AM CDT POCT GLUCOSE - DOCKED DEVICE Routine 07/13/2024 8:25 PM CDT POCT GLUCOSE - DOCKED DEVICE Routine 07/13/2024 5:19 PM CDT POCT GLUCOSE - DOCKED DEVICE Routine 07/13/2024 11:49 AM CDT POCT GLUCOSE - DOCKED DEVICE Routine 07/13/2024 6:26 AM CDT CBC, AUTO, NO DIFF Routine 07/13/2024 4: 06 AM CDT RENAL FUNCTION PANEL Routine 07/13/2024 4:06 AM CDT POCT GLUCOSE - DOCKED DEVICE Routine 07/12/2024 8:50 PM CDT POCT GLUCOSE - DOCKED DEVICE Routine 07/12/2024 4:37 PM CDT POCT GLUCOSE - DOCKED DEVICE Routine 07/12/2024 11:28 AM CDT POCT GLUCOSE - DOCKED DEVICE Routine 07/12/2024 5:26 AM CDT RENAL FUNCTION PANEL Routine 07/12/2024 4:41 AM CDT POCT GLUCOSE - DOCKED DEVICE Routine 07/11/2024 7:25 PM CDT POCT GLUCOSE - DOCKED DEVICE Routine 07/11/2024 4:06 PM CDT POCT GLUCOSE - DOCKED DEVICE Routine 07/11/2024 12:01 PM CDT POCT GLUCOSE - DOCKED DEVICE Routine 07/11/2024 7:29 AM CDT POCT GLUCOSE - DOCKED DEVICE Routine 07/11/2024 6:54 AM CDT BASIC METABOLIC PANEL Routine 07/11/2024 1:51 AM CDT POCT GLUCOSE - DOCKED DEVICE Routine 07/10/2024 8:28 PM CDT POCT GLUCOSE - DOCKED DEVICE Routine 07/10/2024 3:57 PM CDT POCT GLUCOSE - DOCKED DEVICE Routine 07/10/2024 11:56 AM CDT [employer] Today 10:34 AM CDT POCT GLUCOSE - DOCKED DEVICE Routine 07/10/2024 6:32 AM CDT CBC W/DIFF AUTOMATED Routine 07/10/2024 1:29 AM CDT RENAL FUNCTION PANEL Routine 07/10/2024 1:29 AM CDT COMPLEMENT C4 Routine 07/10/2024 1:29 AM CDT PTH - INTACT Routine 07/10/2024 1:29 AM CDT POCT GLUCOSE - DOCKED DEVICE Routine 07/09/2024 10:04 PM CDT POCT GLUCOSE - DOCKED DEVICE Routine 07/09/2024 4:18 PM CDT PROTEIN ELECTROPHORESIS URINE RANDOM Nurse Collected Priority 07/09/2024 3:00 PM CDT POCT GLUCOSE - DOCKED DEVICE Routine 07/09/2024 12:21 PM CDT FERRITIN Routine 07/09/2024 11:40 AM CDT IRON SAT PANEL (IRON,IBC,%SAT) Routine 07/09/2024 11:40 AM CDT KAPPA LAMBDA FREE RATIO (QST) Routine 07/09/2024 11:40 AM CDT BASIC METABOLIC PANEL TIMED 07/09/2024 11:40 AM CDT TRIIODOTHYRONINE TOTAL , TT-3 Routine 07/09/2024 11:40 AM CDT OSMOLALITY, URINE Nurse Collected Priority 07/09/2024 10:20 AM CDT POTASSIUM URINE RANDOM Nurse Collected Priority 07/09/2024 10:20 AM CDT CREATININE URINE RANDOM Nurse Collected Priority 07/09/2024 10:20 AM CDT UREA NITROGEN URINE RANDOM Nurse Collected Priority 07/09/2024 10:20 AM CDT IMMUNOFIXATION Routine 07/09/2024 9:30 AM CDT OSMOLALITY, BLOOD Routine 07/09/2024 9:3 0 AM CDT COMPLEMENT C3 Routine 07/09/2024 9:30 AM CDT ANCA VASCULITIS PANEL Routine 07/09/2024 9:30 AM CDT PROTEIN, ELECTROPHORESIS Routine 07/09/2024 9:[address] CERV SPINE WO CON Today 07/09/2024 6:[address] HEAD WO CON STAT 07/09/2024 6:45 AM CDT POCT GLUCOSE - DOCKED DEVICE Routine 07/09/2024 5:39 AM CDT THYROXINE, FREE (FT4) Routine 07/09/2024 1:21 AM CDT AMMONIA Routine 07/09/2024 1:21 AM CDT TSH W/REFLEX Routine 07/09/2024 1:21 AM CDT VITAMIN B-12 Routine 07/09/2024 1:21 AM CDT PHOSPHORUS, INORGANIC PHOSPHATE Routine 07/09/2024 1:21 AM CDT COMPREHENSIVE METABOLIC PANEL Routine 07/09/2024 1:21 AM CDT MAGNESIUM Routine 07/09/2024 1:21 AM CDT CBC W/DIFF AUTOMATED Routine 07/09/2024 1:21 AM CDT POCT GLUCOSE - DOCKED DEVICE Routine 07/09/2024 12:00 AM CDT CREATININE URINE RANDOM Nurse Collected Priority 07/08/2024 9:45 PM CDT SODIUM URINE RANDOM Nurse Collected Priority 07/08/2024 9:45 PM CDT KETONES URINE Nurse Collected Priority 07/08/2024 9:45 PM CDT DRUG SCREEN RAPID Nurse Collected Priority 07/08/2024 9:45 PM CDT XR CHEST PORTABLE STAT 07/08/2024 9:3 5 PM CDT CK (CPK) Routine 07/08/2024 9:23 PM CDT BLOOD GAS, VENOUS STAT 07/08/2024 9:2 3 PM CDT LACTIC ACID Routine 07/08/2024 9:23 PM CDT BASIC METABOLIC PANEL Routine 07/08/2024 9:23 PM CDT CBC W/DIFF AUTOMATED Routine 07/08/2024 9:23 PM CDT CULTURE, BACTERIA, BLOOD STAT 07/08/2024 9:22 PM CDT ECG 12-LEAD STAT 07/08/2024 9:09 PM CDT LIPID PANEL Routine 08/12/2012 12:00 AM CDT from Last 3 Months or Most Recently Relevant to Health Maintenance Results * POCT glucose (07/17/2024 11:00 AM CDT) Only the most recent of39 resultswithin the time period is included. GLUCOSE POC 99 70 - 109 07/17/2024 11:07 AM CDT [facility] 07/17/2024 11:0 0 AM CDT us Maksim Alba MD POCT ORDERABLES - DEVICE Final Result [facility] [address] [place] [address], [id number] * BASIC METABOLIC PANEL (07/17/2024 4:56 AM CDT) Only the most recent of6 resultswithin the time period is included. SODIUM S/P/B 138 136 - 145 MMOL/L 07/17/2024 5:35 AM CDT [facility] POTASSIUM S/P/B 4.0 3.5 - 5.1 MMOL/L 07/17/2024 5:35 AM T [facility] CHLORIDE S/P/B 109 97 - 115 MMOL/L 07/17/2024 5:35 AM T [facility] CO2 25.0 21.0 - 32.0 MMOL/L 07/17/2024 5:35 AM T [facility] GLUCOSE 90 74 - 106 MG/DL 07/17/2024 5:35 AM T [facility] BUN 10 7 - 18 MG/DL 07/17/2024 5:35 AM T [facility] CREATININE S/P/B 0.78 0.70 - 1.30 MG/DL 07/17/2024 5:35 AM T [facility] CALCIUM S/P/B 8.9 8.5 - 10.1 MG/DL 07/17/2024 5:35 AM T [facility] ANION GAP 4.0 2.0 - 10.0 MMOL/L 07/17/2024 5:35 AM T [facility] OSMOLALITY (CALC) 285 MOSM/KG 025 5:35 AM [facility] Comment:REFERENCE RANGE NOT ESTABLISHED GFR ESTIMATE >90 >90 ML/MIN/1. 73 M2 07/17/2024 5:35 AM [facility] GFR NOTES GFR REFERENCE S: 07/17/2024 5:35 AM T [facility] Comment: THE ESTIMATED GFR IS CALCULATED USING THE 2020 CKD-EPI EQUATION. THE FOLLOWING CATEGORIES FOR GRADING RENAL FUNCTION ARE RECOMMENDED BY THE INTERNATIONAL SOCIETY OF NEPHROLOGY (KDIGO 2012 CLINICAL PRACTICE GUIDELINE). G1,NORMAL OR HIGH: >89 ml/min/1.73 m2 G2,MILDLY DECREASED: 60-89 ml/min/1.73 m2 G3A,MILDLY TO MODERATELY DECREASED: 45-59 ml/min/1.73 m2 G3B,MODERATELY TO SEVERELY DECREASED: 30-44 ml/min/1.73 m2 G4,SEVERELY DECREASED: 15-29 ml/min/1.73 m2 G5,KIDNEY FAILURE: <15 ml/min/1.73 m2 07/17/2024 4:56 AM CDT Maksim Abla MD LABORATORY Final Result [facility] [address] [place] [address], [place] [phone] * (ABNORMAL) CBC W/DIFF AUTOMATED (07/17/2024 4:56 AM CDT) Only the most recent of5 resultswithin the time period is included. WBC 3.87(L) 4.00 - 10.80 x10'3/uL 07/17/2024 5:09 AM CDT [facility] RBC 3.07(L) 4.50 - 6.10 x10'6/uL 07/17/2024 5:09 AM CDT [facility] HGB 7.9(L) 13.0 - 18.0 G/DL 07/17/2024 5:09 AM CDT [facility] HCT 26.0(L) 37.0 - 52.0 % 07/17/2024 5:09 AM CDT [facility] MCV 84.7 78.0 - 100.0 FL 07/17/2024 5:09 AM CDT [facility] MCH 25.7(L) 27.0 - 31.0 PG 07/17/2024 5:09 AM CDT [facility] MCHC 30.4(L) 33.0 - 36.0 G/DL 07/17/2024 5:09 AM CDT [facility] RDW 19.9(H) 11.5 - 14.5 % 07/17/2024 5:09 AM CDT [facility] PLT 141(L) 150 - 350 x10'3/uL 07/17/2024 5:09 AM CDT [facility] MPV 9.1 7.4 - 10.4 FL 07/17/2024 5:09 AM CDT [facility] DIFFERENTIAL TYPE AUTOMATED DIFFERENTIAL 07/17/2024 5:09 AM CDT [facility] SEG NEUTROPHILS 54.2 % 5:09 AM CDT [facility] LYMPHOCYTES 34.4 % 07/17/2024 5:09 AM CDT [facility] MONOCYTES 7.8 % 07/17/2024 5:09 AM CDT [facility] EOSINOPHILS 2.8 % 07/17/2024 5:09 AM CDT [facility] BASOPHILS 0.3 % 07/17/2024 5:09 AM CDT [facility] IMMATURE GRANS % 0.5 % 07/18/19 5:09 AM CDT [facility] ABS. NEUTROPHILS 2.10 1.60 - 8.30 x10'3/uL 07/17/2024 5:09 AM CDT [facility] ABS. LYMPHOCYTES 1.33 0.80 - 4.70 x10'3/uL 07/17/2024 5:09 AM CDT [facility] ABS. MONOCYTES 0.30 0.00 - 1.50 x10'3/uL 07/17/2024 5:09 AM CDT [facility] ABS. EOSINOPHILS 0.11 0.00 - 0.40 x10'3/uL 07/17/2024 5:09 AM CDT [facility] ABS. BASOPHILS 0.01 0.00 - 0.20 x10'3/uL 07/17/2024 5:09 AM CDT [facility] ABS. IMMATURE GRANULOCYTES 0.02 0.00 - 0.03 x10'3/uL 07/17/2024 5:09 AM CDT [facility] ABS. NUCLEATED RBC'S 0.00 0.00 - 0.01 x10'3/uL 07/17/2024 5:09 AM CDT [facility] NRBC % 0.0 % 07/17/2024 5:09 AM CDT [facility] 07/17/2024 4:56 AM CDT us Maksim Alba MD LABORATORY Final Result Performing Organization Address City/[facility]/ZIP Co de Phone Number [facility] [address] [place] [address], [place] [phone] * (ABNORMAL) IRON SAT PANEL (IRON,IBC,%SAT) (07/15/2024 3:54 AM CDT) Only the most recent of2 resultswithin the time period is included. IRON 40(L) 65 - 175 MCG/DL 07/15/2024 9:09 AM CDT [facility] IRON BINDING CAPACITY 247(L) 250 - 450 MCG/DL 07/15/2024 9:09 AM CDT [facility] IRON SATURATION 16 % 9:09 AM CDT [facility] Comment:REFERENCE RANGE NOT ESTABLISHED 07/15/2024 3:54 AM CDT us Maksim Alba MD LABORATORY Final Result Performing Organization Address [facility] Co de Phone Number [facility] [address] [place] [address], [place] [phone] * FERRITIN (07/15/2024 3:54 AM CDT) Only the most recent of2 resultswithin the time period is included. FERRITIN 362.5 26.0 - 388.0 NG/ML 07/15/2024 9:09 AM CDT [facility] 07/15/2024 3:54 AM CDT us Maksim Alba MD LABORATORY Final Result Performing Organization Address City/[facility]/ZIP Co de Phone Number [facility] [address] [place] [address], [id number] * (ABNORMAL) CBC, AUTO, NO DIFF (07/14/2024 4:10 AM CDT) Only the most recent of2 resultswithin the time period is included. WBC 3.49(L) 4.00 - 10.80 x10'3/uL 07/14/2024 4:20 AM CDT [facility] RBC 2.82(L) 4.50 - 6.10 x10'6/uL 07/14/2024 4:20 AM CDT [facility] HGB 7.2(L) 13.0 - 18.0 G/DL 07/14/2024 4:20 AM CDT [facility] HCT 23.2(L) 37.0 - 52.0 % 07/14/2024 4:20 AM CDT [facility] MCV 82.3 78.0 - 100.0 FL 07/14/2024 4:20 AM CDT [facility] MCH 25.5(L) 27.0 - 31.0 PG 07/14/2024 4:20 AM CDT [facility] MCHC 31.0(L) 33.0 - 36.0 G/DL 07/14/2024 4:20 AM CDT [facility] RDW 18.6(H) 11.5 - 14.5 % 07/14/2024 4:20 AM CDT [facility] PLT 114(L) 150 - 350 x10'3/uL 07/14/2024 4:20 AM CDT [facility] MPV 9.3 7.4 - 10.4 FL 07/14/2024 4:20 AM CDT [facility] 07/14/2024 4:10 AM CDT Maksim Alba MD LABORATORY Final Result [facility] [address] [place] [address], [id number] * (ABNORMAL) RENAL FUNCTION PANEL (07/13/2024 4:06 AM CDT) Only the most recent of3 resultswithin the time period is included. SODIUM S/P/B 138 136 - 145 MMOL/L 07/13/2024 5:52 AM CDT [facility] POTASSIUM S/P/B 3.7 3.5 - 5.1 MMOL/L 07/13/2024 5:52 AM CDT [facility] CHLORIDE S/P/B 109 97 - 115 MMOL/L 07/13/2024 5:52 AM CDT [facility] CO2 22.5 21.0 - 32.0 MMOL/L 07/13/2024 5:52 AM CDT [facility] GLUCOSE 87 74 - 106 MG/DL 07/13/2024 5:52 AM CDT [facility] BUN 15 7 - 18 MG/DL 07/13/2024 5:52 AM CDT [facility] CREATININE S/P/B 1.01 0.70 - 1.30 MG/DL 07/13/2024 5:52 AM CDT [facility] CALCIUM S/P/B 8.2(L) 8.5 - 10.1 MG/DL 07/13/2024 5:52 AM CDT [facility] ALBUMIN S/P/B 2.7(L) 3.4 - 5.0 G/DL 07/13/2024 5:52 AM CDT [facility] PHOSPHORUS 1.8(L) 2.5 - 4.9 MG/DL 07/13/2024 5:52 AM CDT [facility] ANION GAP 6.5 2.0 - 10.0 MMOL/L 07/13/2024 5:52 AM CDT [facility] OSMOLALITY (CALC) 286 MOSM/KG 025 5:52 AM CDT [facility] Comment:REFERENCE RANGE NOT ESTABLISHED GFR ESTIMATE 82(L) >90 ML/MIN/1. 73 M2 07/13/2024 5:52 AM CDT [facility] GFR NOTES GFR REFERENCE S: 07/13/2024 5:52 AM CDT [facility] Comment: THE ESTIMATED GFR IS CALCULATED USING THE 2020 CKD-EPI EQUATION. THE FOLLOWING CATEGORIES FOR GRADING RENAL FUNCTION ARE RECOMMENDED BY THE INTERNATIONAL SOCIETY OF NEPHROLOGY (KDIGO 2012 CLINICAL PRACTICE GUIDELINE). G1,NORMAL OR HIGH: >89 ml/min/1.73 m2 G2,MILDLY DECREASED: 60-89 ml/min/1.73 m2 G3A,MILDLY TO MODERATELY DECREASED: 45-59 ml/min/1.73 m2 G3B,MODERATELY TO SEVERELY DECREASED: 30-44 ml/min/1.73 m2 G4,SEVERELY DECREASED: 15-29 ml/min/1.73 m2 G5,KIDNEY FAILURE: <15 ml/min/1.73 m2 07/13/2024 4:06 AM CDT us Maksim Alba MD LABORATORY Final Result [facility] [address] [place] [address], [id number] * US RETROPERITONEAL LTD (07/10/2024 10:34 AM CDT) Anatomical Region Laterality Modality Renal Ultrasound 07/10/2024 10:4 2 AM CDT Impressions 07/10/2024 10:43 AM CDT IMPRESSION: No acute renal sonographic abnormality. Referred By: PROVIDER NON-STAFF Interpreted By: Galileo Lewis MD, 07/10/2024 10:42 AM Narrative 07/10/2024 10:43 AM CDT [facility] [address] [address] Examination: US RETROPERITONEAL LTD Exam time: 07/10/2024 10:16 AM Indication: Acute kidney injury Comparison: None Findings: Sonographic images of the kidneys were obtained. Right kidney: The kidney measures 12.4 cm in length and demonstrates no hydronephrosis. Left kidney: The kidney measures 10.9 cm in length and demonstrates no hydronephrosis. The urinary bladder is decompressed with a Gaona catheter. Procedure Note Galileo Lewis MD - 07/10/2024 [facility] [address] [place], [place] [address] Examination: US RETROPERITONEAL LTD Exam time: 07/10/2024 10:16 AM Indication: Acute kidney injury Comparison: None Findings: Sonographic images of the kidneys were obtained. Right kidney: The kidney measures 12.4 cm in length and demonstrates nohydronephrosis. Left kidney: The kidney measures 10.9 cm in length and demonstrates nohydronephrosis. The urinary bladder is decompressed with a Gaona catheter. IMPRESSION: No acute renal sonographic abnormality. Referred By: PROVIDER NON-STAFF Interpreted By: Galileo Lewis MD, 07/10/2024 10:42 AM us Charles Connell MD ULTRASOUND Final Resu lt * COMPLEMENT C4 (07/10/2024 1:29 AM CDT) COMPLEMENT C4 34.1 10.0 - 40.0 MG/DL 07/10/2024 3:21 AM CDT [facility] 07/10/2024 1:29 AM CDT us Charles Connell MD LABORATORY Final Resu lt [facility] [address] [place] [address], [id number] * (ABNORMAL) PTH - INTACT (07/10/2024 1:29 AM CDT) PTH INTACT 240.6(H) 18.4 - 80.1 PG/ML 07/10/2024 2:09 AM CDT [facility] Comment: ASSAY PERFORMED BY CHEMILUMINESCENCE METHODOLOGY USING SIEMENS CENTAUR XPT REAGENT. PATIENT RESULTS DETERMINED BY ASSAYS USING DIFFERENT MANUFACTURERS FOR METHODS MAY NOT BE COMPARABLE. 07/10/2024 1:29 AM CDT Charles Connell MD LABORATORY Final Resu lt Performing Organization Address [facility] de Phone Number [facility] [address] [place] [address], [phone] * (ABNORMAL) PROTEIN ELECTROPHORESIS URINE RANDOM (07/09/2024 3:00 PM CDT) PROTEIN URINE TOTAL RANDOM 45.7(H) <12.0 MG/DL 07/12/2024 3:21 PM CDT [facility] INTERPRETATION THIS URINE PEP WAS INTERPRETED BY 07/13/2024 8:03 AM CDT [facility] Comment: DR ROBEL BURNS THERE IS MILD RANDOM PROTEINURIA WHICH IS MAINLY ALBUMIN. BENCE CONROY PROTEIN IS NOT DETECTED. URINE SPECIMEN / Unknown 07/09/2024 3:00 PM CDT Medina Shine MD URINE ORDERABLES Final Resul t Performing Organization Address [facility] de Phone Number [facility] [address] [place] [address], [place] [phone] * (ABNORMAL) KAPPA LAMBDA FREE RATIO (QST) (07/09/2024 11:40 AM CDT) KAPPA FREE LIGHT CHAIN 76.8(H) 3.3 - 19.4 mg/L 07/13/2024 12:08 AM CDT [facility] JOVANNI HARDINGY LAMBDA FREE LIGHT CHAIN 52.1(H) 5.7 - 26.3 mg/L 07/13/2024 12:08 AM CDT [facility] LOUISCHANTI MEAGHAN KAPPA/LAMBDA FREE 1.47 0.26 - 1.65 07/13/2024 12:08 AM CDT [facility] LOUISTERESE HARDINGInessa Comment: Free kappa/lambda ratio in serum of normal individuals is 0.26-1.65. Excess production of free kappa or lambda chains can alter the ratio. Monoclonal free light chains are found in the serum of patients with multiple myeloma, Waldenstrom's macroglobulinemia, mu-heavy chain disease, primary amyloidosis, light chain deposition disease, monoclonal gammopathy of undetermined significance, and lymphoproliferative disorders. Measurement of free light chain concen- tration in serum is useful for diagnosis, prognosis, monitoring disease activity and following response to therapy of these disorders. Test Performed by [employer] [facility], [address] [place] [address] Robel Mott M.D., Ph.D., Director of Laboratories , [facility] [id number] 07/09/2024 11:4 0 AM CDT Medina Shine MD LABORATORY Final Result [facility] [address] , [place] [phone] * TRIIODOTHYRONINE TOTAL , TT-3 (07/09/2024 11:40 AM CDT) T3 TOTAL 63 60 - 181 NG/DL 07/10/2024 12:37 AM CDT [facility] 07/09/2024 11:4 0 AM CDT Maksim Alba MD LABORATORY Final Result [facility] [address] [place] [address], [place] [phone] * POTASSIUM URINE RANDOM (07/09/2024 10:20 AM CDT) K RANDOM (U) 22.3 MMOL/L 07/09/2024 11:04 AM CDT [facility] Comment:REFERENCE RANGE NOT ESTABLISHED URINE SPECIMEN / Unknown 07/09/2024 10:20 AM CDT us Charles Connell MD URINE ORDERABLES Final Res ult Performing Organization Address [facility] Co de Phone Number [facility] [address] [place] [address], [place] [phone] * UREA NITROGEN URINE RANDOM (07/09/2024 10:20 AM CDT) UREA NITROGEN (U) 681 MG/DL 07/09/2024 11:04 AM CDT [facility] Comment:REFERENCE RANGE NOT ESTABLISHED URINE SPECIMEN / Unknown 07/09/2024 10:20 AM CDT us Charles Connell MD URINE ORDERABLES Final Res ult Performing Organization Address [facility] de Phone Number [facility] [address] [place] [address], [place] [phone] * CREATININE URINE RANDOM (07/09/2024 10:20 AM CDT) Only the most recent of2 resultswithin the time period is included. CREATININE (U) 70.9 MG/DL 07/09/2024 11:04 AM CDT [facility] Comment:REFERENCE RANGE NOT ESTABLISHED URINE SPECIMEN / Unknown 07/09/2024 10:20 AM CDT us Charles Connell MD URINE ORDERABLES Final Res ult Performing Organization Address [facility] Co de Phone Number [facility] [address] [place] [address], [place] [phone] * OSMOLALITY, URINE (07/09/2024 10:20 AM CDT) OSMOLALITY (U) 398 50 - 1,200 MOSM/KG 07/09/2024 11:27 AM CDT [facility] URINE SPECIMEN / Unknown 07/09/2024 10:20 AM CDT Charles Connell MD URINE ORDERABLES Final Res ult [facility] [address] [place] [address], [phone] * ANCA VASCULITIS PANEL (07/09/2024 9:30 AM CDT) MYELOPEROXIDASE AB <1.0 <1.0 AI 2024 7:45 AM CDT [facility] YANETHTERESE MARTINEZ Comment: Value Interpretation <1.0 AI: No Antibody Detected >or=1.0 AI: Antibody Detected Autoantibodies to myeloperoxidase (MPO) are commonly associated with the following small-vessel vasculitides: microscopic polyangiitis, polyarteritis nodosa, Churg-Noel syndrome, necrotizing and crescentic glomerulonephritis and occasionally granulomatosis with polyangiitis (GPA, Mayra's). The perinuclear IFA pattern, (p-ANCA) is based largely on autoantibody to myeloperoxidase which serves as the primary antigen. These autoantibodies are present in active disease. C ANCA <1.0 <1.0 AI 07/17/2024 7:45 AM CDT [facility] JOVANNI MARTINEZ Comment: Value Interpretation <1.0 AI: No Antibody Detected >or=1.0 AI: Antibody Detected Autoantibodies to proteinase-3 (FL-3) are accepted as characteristic for granulomatosis with polyangiitis (GPA, Mayra's), and are detectable in 95% of the histologically proven cases. The cytoplasmic IFA pattern, (c-ANCA), is based largely on autoantibody to FL-3 which serves as the primary antigen. These autoantibodies are present in active disease. Test Performed by [employer] [facility], [id number] [place] [address] Robel Mott M.D., Ph.D., Director of Laboratories , [facility] [id number] 07/09/2024 9:30 AM CDT us Charles Connell MD LABORATORY Final Resu lt [place] [id number] [place], [place] , [place] [phone] * COMPLEMENT C3 (07/09/2024 9:30 AM CDT) Pathologist [facility] COMPLEMENT C3 176.0 90.0 - 180.0 MG/DL 07/09/2024 10:28 AM CDT [facility] 07/09/2024 9:30 AM CDT Charles Connell MD LABORATORY Final Resu lt Performing Organization Address [facility] de Phone Number [facility] [address] [place] [address], [place] [phone] * IMMUNOFIXATION (07/09/2024 9:30 AM CDT) Pathologist [facility] IMMUNOFIXATION SERUM SEE PATHOLOGIST'S INTERPRETATION 07/12/2024 3:32 PM CDT [facility] IMMUNOFIX (SERUM) INTERPRETATION THIS SERUM IMMUNOTYPING WAS INTERPRETED BY 07/13/2024 8:03 AM CDT [facility] Comment: DR ROBEL BURNS MONOCLONAL PROTEIN NOT IDENTIFIED 07/09/2024 9:30 AM CDT us Charles Connell MD LABORATORY Final Resu lt Performing Organization Address City/[facility] Co de Phone Number [facility] [address] [place] [id number], [place] [phone] * (ABNORMAL) PROTEIN, ELECTROPHORESIS (07/09/2024 9:30 AM CDT) [facility] TOTAL PROTEIN (ELECTROPHORESIS SERUM) 8.5(H) 6.0 - 8.3 G/DL 07/12/2024 3:20 PM CDT [facility] ALBUMIN ELECTROPHORESIS S/P/B 2.7(L) 3.4 - 4.9 G/DL 07/12/2024 3:19 PM CDT [facility] [id number] S/P/B 0.3 0.2 - 0.4 G/DL 07/12/2024 3:19 PM CDT [facility] [id number]-4-[id number] S/P/B 0.6 0.4 - 1.0 G/DL 07/12/2024 3:19 PM CDT [facility] BETA GLOBULIN S/P/B 0.7 0.5 - 1.2 G/DL 07/12/2024 3:19 PM CDT [facility] GAMMA GLOBULIN S/P/B 1.6 0.6 - 1.6 G/DL 07/12/2024 3:19 PM CDT [facility] ELECTROPHORESIS INTERPRETATION THIS SERUM PEP WAS INTERPRETED BY 07/13/2024 8:02 AM CDT [facility] Comment: DR ROBEL BURNS THE TOTAL SERUM PROTEIN IS DECREASED. ELECTROPHORESIS IDENTIFIES DECREASED ALBUMIN WITH NO ADDITIONAL QUANTITATIVE ABNORMALITIES. MONOCLONAL PROTEINS ARE NOT DETECTED. 07/09/2024 9:30 AM CDT us Charles Connell MD LABORATORY Final Resu lt [facility] [address] [place] [address], [place] [phone] * (ABNORMAL) OSMOLALITY, BLOOD (07/09/2024 9:30 AM CDT) [facility] OSMOLALITY (S/P/B) 342(H) 275 - 295 MOSM/KG 07/09/2024 11:48 AM CDT [facility] 07/09/2024 9:30 AM CDT Charles Connell MD LABORATORY Final Resu lt [facility] [address] [place] [address], [phone] * CT HEAD WO CON (07/09/2024 6:45 AM CDT) Anatomical Region Laterality Modality Head Computed Tomogra phy 07/09/2024 6:48 AM CDT Impressions 07/09/2024 6:49 AM CDT IMPRESSION: ===== 1. No acute intracranial abnormalities. 2. Atrophy and small vessel ischemic disease. Superimposed acute infarct not excluded. Referred By: PROVIDER NON-STAFF Interpreted By: Wallace Caban MD, 07/09/2024 6:48 AM Narrative 07/09/2024 6:49 AM CDT [facility] [address] [place], [place] [address] EXAMINATION: CT of the head EXAM DATE/TIME: 07/09/2024 6:38 AM REASON FOR EXAM: fall head injury Status post fall with injury to the COMPARISON: None TECHNIQUE: Axial CT images of the brain are obtained from skull base through vertex without the use of IV contrast agent. A dose lowering technique was used for this procedure, which may include, but is not limited to, dose reduction technique, automated exposure control, iterative reconstruction, ALARA (As Low As Reasonably Achievable), or Image Gently techniques. FINDINGS: No acute hemorrhage or large territory infarct. Ventricles are moderately enlarged with prominent bilateral sulci indicating moderate parenchymal volume loss. There are minimal areas of scattered hypodensities in the periventricular deep white matter which are nonspecific but likely secondary to mild small vessel ischemic disease. There are no extra-axial fluid collections. There is no mass, mass effect, or midline shift. There is no depressed skull fracture. Visualized paranasal sinuses show mucous retention cyst in the right maxillary sinus with remainder paranasal sinuses and mastoid air cells clear. Visualized orbital contents are unremarkable. ===== Procedure Note Wallace Caban MD - 07/09/[address] [address] EXAMINATION: CT of the head EXAM DATE/TIME: 07/09/2024 6:38 AM REASON FOR EXAM: fall head injury Status post fall with injury to the COMPARISON: None TECHNIQUE: Axial CT images of the brain are obtained from skull basethrough vertex without the use of IV contrast agent. A dose loweringtechnique was used for this procedure, which may include, but is notlimited to, dose reduction technique, automated exposure control,iterative reconstruction, ALARA (As Low As Reasonably Achievable), orImage Gently techniques. FINDINGS: No acute hemorrhage or large territory infarct. Ventricles aremoderately enlarged with prominent bilateral sulci indicating moderateparenchymal volume loss. There are minimal areas of scatteredhypodensities in the periventricular deep white matter which arenonspecific but likely secondary to mild small vessel ischemic disease.There are no extra-axial fluid collections. There is no mass, masseffect, or midline shift. There is no depressed skull fracture.Visualized paranasal sinuses show mucous retention cyst in the rightmaxillary sinus with remainder paranasal sinuses and mastoid air cellsclear. Visualized orbital contents are unremarkable. ===== IMPRESSION: ===== 1. No acute intracranial abnormalities. 2. Atrophy and small vessel ischemic disease. Superimposed acute infarctnot excluded. Referred By: PROVIDER NON-STAFF Interpreted By: Wallace Caban MD, 07/09/2024 6:48 AM us Ricky Jalloh MD CT Final Res ult * CT CERV SPINE WO CON (07/09/2024 6:45 AM CDT) Anatomical Region Laterality Modality Spine Computed Tomogra phy 07/09/2024 6:55 AM CDT Impressions 07/09/2024 6:56 AM CDT IMPRESSION: ===== 1. Multilevel degenerative changes with no acute traumatic abnormality of the cervical spine. Referred By: PROVIDER NON-STAFF Interpreted By: Wallace Caban MD, 07/09/2024 6:55 AM Narrative 07/09/2024 6:56 AM CDT [facility] [address] [place], [place] [address] EXAMINATION: CT Cervical Spine without contrast. EXAM DATE/TIME: 07/09/2024 6:38 AM REASON FOR EXAM: fall head injury COMPARISON: No prior CT cervical spine. TECHNIQUE: Axial CT images of the cervical spine are obtained without the use of IV contrast agent. Subsequent coronal and sagittal reformatted sequences are created for evaluation. A dose lowering technique was used for this procedure, which may include, but is not limited to, dose reduction technique, automated exposure control, iterative reconstruction, ALARA (As Low As Reasonably Achievable), or Image Gently techniques. FINDINGS: Limited evaluation of posterior fossa contents unremarkable. The included skull base is intact. Cervical vertebral body heights and alignment are preserved. Multilevel endplate osteophytes. Nuchal ligament calcification noted. Visualized lung apices clear. No acute fracture or dislocation. No destructive osseous lesion. Calcifications in the right carotid artery. No significant paravertebral soft tissue structural abnormality. ===== Procedure Note Wallace Caban MD - 07/09/2024 [facility] [address] [place], [place] [address] EXAMINATION: CT Cervical Spine without contrast. EXAM DATE/TIME: 07/09/2024 6:38 AM REASON FOR EXAM: fall head injury COMPARISON: No prior CT cervical spine. TECHNIQUE: Axial CT images of the cervical spine are obtained without theuse of IV contrast agent. Subsequent coronal and sagittal reformattedsequences are created for evaluation. A dose lowering technique was usedfor this procedure, which may include, but is not limited to, dosereduction technique, automated exposure control, iterative reconstruction,ALARA (As Low As Reasonably Achievable), or Image Gently techniques. FINDINGS: Limited evaluation of posterior fossa contents unremarkable.The included skull base is intact. Cervical vertebral body heights andalignment are preserved. Multilevel endplate osteophytes. Nuchalligament calcification noted. Visualized lung apices clear. No acutefracture or dislocation. No destructive osseous lesion. Calcificationsin the right carotid artery. No significant paravertebral soft tissuestructural abnormality. ===== IMPRESSION: ===== 1. Multilevel degenerative changes with no acute traumatic abnormality ofthe cervical spine. Referred By: PROVIDER NON-STAFF Interpreted By: Wallace Caban MD, 07/09/2024 6:55 AM us Ricky Jalloh MD CT Final Res ult * (ABNORMAL) TSH W/REFLEX (07/09/2024 1:21 AM CDT) TSH 0.093(L) 0.358 - 3.740 uIU/ML 07/09/2024 2:17 AM CDT [facility] Comment: ASSAY PERFORMED BY CHEMILUMINESCENCE METHODOLOGY USING SIEMENS DIMENSION VISTA REAGENT. PATIENT RESULTS DETERMINED BY ASSAYS USING DIFFERENT MANUFACTURERS FOR METHODS MAY NOT BE COMPARABLE. 07/09/2024 1:21 AM CDT us Ricky Jalloh MD LABORATORY Final Res ult [facility] [address] [place] [address], [id number] * VITAMIN B-12 (07/09/2024 1:21 AM CDT) VITAMIN B12 S/P/B 511 193 - 986 PG/ML 07/09/2024 2:24 AM CDT [facility] 07/09/2024 1:21 AM CDT Ricky Jalloh MD LABORATORY Final Res ult [facility] [address] [place] [address], [phone] * (ABNORMAL) COMPREHENSIVE METABOLIC PANEL (07/09/2024 1:21 AM CDT) Pathologist [facility] SODIUM S/P/B 136 136 - 145 MMOL/L 07/09/2024 2:17 AM CDT [facility] POTASSIUM S/P/B 4.1 3.5 - 5.1 MMOL/L 07/09/2024 2:17 AM CDT [facility] CHLORIDE S/P/B 102 97 - 115 MMOL/L 07/09/2024 2:17 AM CDT [facility] CO2 22.2 21.0 - 32.0 MMOL/L 07/09/2024 2:17 AM CDT [facility] GLUCOSE 93 74 - 106 MG/DL 07/09/2024 2:17 AM CDT [facility] BUN 146(H) 7 - 18 MG/DL 07/09/2024 2:17 AM CDT [facility] CREATININE S/P/B 4.76(H) 0.70 - 1.30 MG/DL 07/09/2024 2:17 AM CDT [facility] CALCIUM S/P/B 8.4(L) 8.5 - 10.1 MG/DL 07/09/2024 2:17 AM CDT [facility] BILIRUBIN TOTAL S/P/B 0.2 0.2 - 1.0 MG/DL 07/09/2024 2:17 AM CDT [facility] ALKALINE PHOSPHATASE S/P/B 46 45 - 115 U/L 07/09/2024 2:17 AM CDT [facility] AST 12(L) 15 - 37 U/L 07/09/2024 2:17 AM CDT [facility] ALT 11(L) 16 - 61 U/L 07/09/2024 2:17 AM CDT [facility] TOTAL PROTEIN S/P/B 8.8(H) 6.4 - 8.2 G/DL 07/09/2024 2:17 AM CDT [facility] ALBUMIN S/P/B 3.3(L) 3.4 - 5.0 G/DL 07/09/2024 2:17 AM CDT [facility] ANION GAP 11.8(H) 2.0 - 10.0 MMOL/L 07/09/2024 2:17 AM CDT [facility] OSMOLALITY (CALC) 329 MOSM/KG 025 2:17 AM T [facility] Comment:REFERENCE RANGE NOT ESTABLISHED GFR ESTIMATE 13(L) >90 ML/MIN/1. 73 M2 07/09/2024 2:17 AM T [facility] GFR NOTES GFR REFERENCE S: 07/09/2024 2:17 AM T [facility] Comment: THE ESTIMATED GFR IS CALCULATED USING THE 2020 CKD-EPI EQUATION. THE FOLLOWING CATEGORIES FOR GRADING RENAL FUNCTION ARE RECOMMENDED BY THE INTERNATIONAL SOCIETY OF NEPHROLOGY (KDIGO 2012 CLINICAL PRACTICE GUIDELINE). G1,NORMAL OR HIGH: >89 ml/min/1.73 m2 G2,MILDLY DECREASED: 60-89 ml/min/1.73 m2 G3A,MILDLY TO MODERATELY DECREASED: 45-59 ml/min/1.73 m2 G3B,MODERATELY TO SEVERELY DECREASED: 30-44 ml/min/1.73 m2 G4,SEVERELY DECREASED: 15-29 ml/min/1.73 m2 G5,KIDNEY FAILURE: <15 ml/min/1.73 m2 07/09/2024 1:21 AM CDT us Ricky Jalloh MD LABORATORY Final Res ult [facility] [address] [place] [address], [phone] * (ABNORMAL) THYROXINE, FREE (FT4) (07/09/2024 1:21 AM CDT) FREE T4 1.89(H) 0.76 - 1.46 NG/DL 07/09/2024 2:35 AM CDT [facility] 07/09/2024 1:21 AM CDT Ricky Jalloh MD LABORATORY Final Res ult Performing Organization Address [facility] de Phone Number [facility] [address] [place] [address], [phone] * (ABNORMAL) PHOSPHORUS, INORGANIC PHOSPHATE (07/09/2024 1:21 AM CDT) PHOSPHORUS 8.4(H) 2.5 - 4.9 MG/DL 07/09/2024 2:17 AM CDT [facility] 07/09/2024 1:21 AM CDT Ricky Jalloh MD LABORATORY Final Res ult Performing Organization Address [facility] de Phone Number [facility] [address] [place] [address], [phone] * AMMONIA (07/09/2024 1:21 AM CDT) AMMONIA 16 11 - 32 UMOL/L 07/09/2024 1:57 AM CDT [facility] 07/09/2024 1:21 AM CDT Ricky Jalloh MD LABORATORY Final Res ult Performing Organization Address City/[facility] Co de Phone Number [facility] [address] [place] [address], [phone] * MAGNESIUM (07/09/2024 1:21 AM CDT) MAGNESIUM 1.6 1.6 - 2.6 MG/DL 07/09/2024 2:17 AM CDT [facility] 07/09/2024 1:21 AM CDT us Ricky Jalloh MD LABORATORY Final Res ult Performing Organization Address [facility] Co de Phone Number [facility] [address] [place] [address], [place] [phone] * KETONES URINE (07/08/2024 9:45 PM CDT) KETONES MG/DL (U) NEGATIVE NEGATIVE 07/08/2024 10:03 PM CDT [facility] URINE SPECIMEN / Unknown 07/08/2024 9:45 PM CDT us Ricky Jalloh MD URINE ORDERABLES Final Re sult Performing Organization Address [facility] de Phone Number [facility] [address] [place] [address], [place] [phone] * SODIUM URINE RANDOM (07/08/2024 9:45 PM CDT) NA RANDOM (U) 91 MMOL/L 07/08/2024 10:18 PM CDT [facility] Comment:REFERENCE RANGE NOT ESTABLISHED URINE SPECIMEN / Unknown 07/08/2024 9:45 PM CDT us Ricky Jalloh MD URINE ORDERABLES Final Re sult Performing Organization Address [facility] Co de Phone Number [facility] [address] [place] [address], [place] [phone] * URINE DRUG SCREEN (TOXICOLOGY) (07/08/2024 9:45 PM CDT) PHENCYCLIDINE PCP (U) NEGATIVE NEGATIVE 07/08/2024 10:17 PM CDT [facility] BENZODIAZEPINES SCREEN (U) NEGATIVE NEGATIVE 07/08/2024 10:17 PM CDT [facility] COCAINE METABOLITES (U) NEGATIVE NEGATIVE 07/08/2024 10:17 PM CDT [facility] AMPHETAMINE (U) NEGATIVE NEGATIVE 10:17 PM CDT [facility] CANNABINOIDS SCREEN (U) NEGATIVE NEGATIVE 07/08/2024 10:17 PM CDT [facility] OPIATE SCREEN (U) NEGATIVE NEGATIVE 025 10:17 PM CDT [facility] BARBITURATES SCREEN (U) NEGATIVE NEGATIVE 07/08/2024 10:17 PM CDT [facility] URINE TOX COMMENT Unconfirmed screening results are to be used only for medical purposes. 07/08/2024 9:47 PM CDT [facility] CUTOFF CONCENTRATION (U) Cut-off Concentration for a positive result 07/08/2024 9:47 PM CDT [facility] Comment: Phencyclidine 25 ng/mL Benzodiazepines 200 ng/mL Cocaine 300 ng/mL Amphetamine 1000 ng/mL Cannabinoids 50 ng/mL Opiates 300 ng/mL Barbiturates 200 ng/mL URINE SPECIMEN / Unknown 07/08/2024 9:45 PM CDT us Ricky Jalloh MD URINE ORDERABLES Final Re sult [facility] [address] [place] [address], [phone] * XR CHEST PORTABLE (07/08/2024 9:35 PM CDT) Anatomical Region Laterality Modality Chest Radiographic Samantha ging 07/08/2024 9:55 PM CDT Impressions 07/08/2024 9:57 PM CDT IMPRESSION: 1. Limited exam due to patient rotation towards the right. 2. Mild atelectasis in the lung bases with no other acute pulmonary disease. 3. Questionable nodular opacity near the right cardiophrenic angle is not seen on the prior exam and may be an artifact or calcified granuloma near the right costophrenic angle. Suggest follow-up PA and lateral chest x-ray with deep inspiratory effort and better patient positioning for further assessment. Referred By: PROVIDER NON-STAFF Interpreted By: Daxa Rebollar MD, 07/08/2024 9:55 PM Narrative 07/08/2024 9:57 PM CDT [address] [address] EXAMINATION: XR Portable CXR, 1 View INDICATION: Shortness of breath. COMPARISON: Portable AP chest x-ray 01/13/2019. FINDINGS: Exam is somewhat limited due to patient rotation towards the right. The cardiomediastinal silhouette is within normal limits. Pulmonary vascularity is normal. slide attendant leads overlie the chest and upper abdomen. There is a questionable nodular opacity near the right cardiophrenic angle that is not seen on the prior exam and may be an artifact or calcified granuloma near the right costophrenic angle, without other pulmonary nodule less likely. There is mild atelectasis in the lung bases. Remaining lungs are clear. No other infiltrate, consolidation, pleural effusion, or pneumothorax. No acute osseous abnormality. Procedure Note Daxa Rebollar MD - 07/08/2024 [facility] [address] [place], [place] [address] EXAMINATION: XR Portable CXR, 1 View INDICATION: Shortness of breath. COMPARISON: Portable AP chest x-ray 01/13/2019. FINDINGS: Exam is somewhat limited due to patient rotation towards the right. Thecardiomediastinal silhouette is within normal limits. Pulmonaryvascularity is normal. slide attendant leads overlie the chest and upperabdomen. There is a questionable nodular opacity near the rightcardiophrenic angle that is not seen on the prior exam and may be anartifact or calcified granuloma near the right costophrenic angle, withoutother pulmonary nodule less likely. There is mild atelectasis in the lungbases. Remaining lungs are clear. No other infiltrate, consolidation,pleural effusion, or pneumothorax. No acute osseous abnormality. IMPRESSION: 1. Limited exam due to patient rotation towards the right. 2. Mild atelectasis in the lung bases with no other acute pulmonarydisease. 3. Questionable nodular opacity near the right cardiophrenic angle is notseen on the prior exam and may be an artifact or calcified granuloma nearthe right costophrenic angle. Suggest follow-up PA and lateral chestx-ray with deep inspiratory effort and better patient positioning forfurther assessment. Referred By: PROVIDER NON-STAFF Interpreted By: Daxa Rebollar MD, 07/08/2024 9:55 PM Ricky Jalloh MD GENERAL IMAGING Final Res ult * (ABNORMAL) Blood gas, venous (07/08/2024 9:23 PM CDT) PH VENOUS 7.28(L) 7.32 - 7.42 07/08/2024 9:48 PM CDT [facility] PCO2 VENOUS 42.5 41.0 - 51.0 MMHG 07/08/2024 9:48 PM CDT [facility] PO2 VENOUS 22.7(L) 25.0 - 40.0 MM HG 07/08/2024 9:48 PM CDT [facility] BICARB VENOUS 19.3(L) 24 - 28 MMOL/L 07/08/2024 9:48 PM CDT [facility] TOTAL CO2 VENOUS 20.6(L) 25.0 - 29.0 MMOL/L 07/08/2024 9:48 PM CDT [facility] BASE DEFICIT VENOUS 6.7(H) 0.0 - 3.0 MMOL/L 07/08/2024 9:48 PM CDT [facility] O2 SAT VENOUS 23 <75 % 07/08/2024 9:48 PM CDT [facility] 07/08/2024 9:23 PM CDT Ricky Jalloh MD LABORATORY Final Res ult Performing Organization Address [facility]/ZIP Co de Phone Number [facility] [address] [place] [address], [phone] * LACTIC ACID (07/08/2024 9:23 PM CDT) LACTIC ACID VENOUS 2.0 0.4 - 2.0 MMOL/L 07/08/2024 10:04 PM CDT [facility] 07/08/2024 9:23 PM CDT Ricky Jalloh MD LABORATORY Final Res ult Performing Organization Address [facility] Co de Phone Number [facility] [address] [place] [address], [id number] * CK (CPK) (07/08/2024 9:23 PM CDT) CPK 110 39 - 308 U/L 07/08/2024 11:02 PM CDT [facility] 07/08/2024 9:23 PM CDT Ricky Jalloh MD LABORATORY Final Res ult Performing Organization Address City/[facility]/ZIP Co de Phone Number [facility] [address] [place] [address], [phone] * CULTURE, BACTERIA, BLOOD (07/08/2024 9:22 PM CDT) SPEC DESCRIPTION BLOOD 07/08/2024 9:00 PM CDT [facility] SPECIAL REQUESTS NO SPECIAL REQUEST 07/08/2024 9:00 PM CDT [facility] CULTURE RESULT NO GROWTH 5 DAYS 07/13/2024 10:21 PM CDT [facility] BLOOD SPECIMEN OBTAINED FOR BLOOD CULTURE / Unknown 07/08/2024 9:22 PM CDT 07/08/2024 9:34 PM CDT Ricky Jalloh MD MICROBIOLOGY - GENERAL OR DERABLES Final Result [facility] [address] [place] [address], [id number] * ECG 12 lead (07/08/2024 9:09 PM CDT) 07/08/2024 9:09 PM CDT Narrative [facility] - 07/08/2024 10:[address] [facility] [address] [place] [address] Test Date: 2024-07-08 Pat Name: [facility] Department: 1 Room: [facility] Gender: Male Hospice Care Consultant: Vahid : 1960 Requested By: RICKY JALLOH Order Number: [id number] Reading MD: Abram Clay Measurements Intervals [place] Rate: 84 P: -12 FL: 166 QRS: 42 QRSD: 120 T: 64 QT: 357 QTc: 423 Interpretive Statements SINUS RHYTHM MODERATE INTRAVENTRICULAR CONDUCTION DELAY [110+ ms QRS DURATION] MINIMAL ST DEPRESSION [0.025+ mV ST DEPRESSION] Procedure Note Abram Clay MD - 07/08/2024 [facility] [address] [place] [address] Test Date: 2024-07-08 Pat Name: [facility] Department: 1 Room: [facility] Gender: Male Hospice Care Consultant: Vahid : 1960 Requested By: RICKY JALLOH Order Number: [id number] Reading MD: Abram Clay Measurements Intervals [place] Rate: 84 P: -12 FL: 166 QRS: 42 QRSD: 120 T: 64 QT: 357 QTc: 423 Interpretive Statements SINUS RHYTHM MODERATE INTRAVENTRICULAR CONDUCTION DELAY [110+ ms QRS DURATION] MINIMAL ST DEPRESSION [0.025+ mV ST DEPRESSION] us Ricky Jalloh MD ECG ORDERABLES Final Res ult [facility] * LIPID PANEL (08/12/2012 12:00 AM CDT) TRIGLYCERIDES 492 0 - 150 mg/dl [employer] TO EPIC CONVERSION CHOLESTEROL 195 0 - 200 mg/dl [employer] TO EPIC CONVERSION HDL 33 40 - 59 mg/dl [employer] TO EPIC CONVERSION LDL CONVERSION not calculated 0 - 100 mg/dl [employer] TO EPIC CONVERSION CHOL/HDL RATIO 5.9 <4.0 (Calc) [employer] TO EPIC CONVERSION NON HDL CHOLESTEROL 162 0 - 130 mg/dL [employer] TO EPIC CONVERSION 08/12/2012 08/12/2012 Narrative [employer] TO EPIC CONVERSION - 01/16/2013 10:01 AM MENTAL HEALTH AIDE Reviewed by JR Jan 16 2013 10:01:00:000AM us Generic Conversion Md [facility] Final R esult [employer] TO EPIC CONVERSION from Last 3 Months or Most Recently Relevant to Health Maintenance Insurance MEDICAID [facility] Advance Directives Documents on File Type Date Recorded 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
== END 2024-09-06 09:41 | disposition home or self-care (01) ==
LOC: CHSIMG 09:42
PROVIDERS: PCP Family Medicine
DX: N40.0 Benign prostatic hyperplasia without lower urinary tract symptoms (principal)
CPT/HCPCS: 72192

== ENCOUNTER 2024-09-15 09:42 | Outpatient (CLI) | payer OTHER, SELFPAY ==
[2024-09-15 10:27] LABS: Hematocrit 37.8 % (37.0-46.0); Hemoglobin 11.6 g/dL (12.4-15.3); Immature Granulocyte Percent A 0.7 % (0.0-0.0); Lymphocytes Absolute Auto 1.61 K/mm3 (1.10-4.50); Mean Corpuscular HGB Conc 30.7 g/dL (32-36); Mean Corpuscular Hemoglobin 26.5 pg (27.0-31.0); Mean Corpuscular Volume 86.5 fL (78.0-102.0); Nucleated Red Blood Cells Absolute Auto 0.00 K/mm3 (0.00-0.00); Nucleated Red Blood Cells Perc 0.0 % (0-0.0); Platelet Count Result 196 K/mm3 (150-420); Red Blood Count 4.37 M/mm3 (4.70-6.10); White Blood Count 8.5 K/mm3 (4.8-10.8)
[2024-09-15 10:52] LABS: Albumin Level 4.2 g/dL (3.5-5.1); Anion Gap 5 mmol/L (4-12); Blood Urea Nitrogen 20 mg/dL (9-20); Calcium 8.7 mg/dL (8.4-10.2); Carbon Dioxide 27 mmol/L (22-30); Chloride 95 mmol/L (98-107); Estimated Glomerular Filt Rate > 60; Glucose 110 mg/dL (65-110); Iron 55 ug/dL (49-181); Osmolality Calculated 267 mOsm/kg (285-295); Potassium 5.2 mmol/L (3.4-5.0); Sodium 127 mmol/L (137-145)
[2024-09-15 11:01] LABS: Percent Iron Saturation 15 % (20-50)
== END 2024-09-15 09:43 | disposition home or self-care (01) ==
PROVIDERS: PCP Family Medicine
DX: N17.9 Acute kidney failure, unspecified (principal); N40.0 Benign prostatic hyperplasia without lower urinary tract symptoms; D64.9 Anemia, unspecified
CPT/HCPCS: 36415; 80069; 83540; 83550; 85025

== ENCOUNTER 2024-10-02 07:46 | Outpatient (CLI) | payer OTHER, SELFPAY ==
[2024-10-02 08:52] LABS: Anion Gap 10 mmol/L (4-12); Blood Urea Nitrogen 12 mg/dL (9-20); Calcium 9.5 mg/dL (8.4-10.2); Carbon Dioxide 30 mmol/L (22-30); Chloride 90 mmol/L (98-107); Estimated Glomerular Filt Rate > 60; Glucose 97 mg/dL (65-110); Osmolality Calculated 269 mOsm/kg (285-295); Potassium 4.8 mmol/L (3.4-5.0); Sodium 130 mmol/L (137-145)
== END 2024-10-02 07:47 | disposition home or self-care (01) ==
LOC: CHSLAB 07:49
PROVIDERS: PCP Family Medicine
DX: N17.9 Acute kidney failure, unspecified (principal)
CPT/HCPCS: 36415; 80048

== ENCOUNTER 2024-10-04 11:18 | Outpatient (CLI) | payer OTHER, SELFPAY ==
--- NOTE | ~2024-10-04 | XR_ITS ---
XR chest 2V 10/04/2024 11:51 Indication: Dyspnea Procedure: 2 view chest Comparison: 07/08/2024 Findings: Increasing consolidation of the right middle and lower lobe. Small right pleural effusion. Mediastinal silhouette is stable. Left lung clear. Impression: 1: Increasing consolidation of the right middle and lower lobe with small effusion. Findings suspicious for pneumonia and/or atelectasis. Findings have progressed since 07/08/2024. Reviewed, dictated and finalized at location A. Impression: 1: Increasing consolidation of the right middle and lower lobe with small effus ion. Findings suspicious for pneumonia and/or atelectasis. Findings have progre ssed since 07/08/2024.
--- OUTSIDE RECORDS SUMMARY | 2024-10-04 11:53 | XMS_ITS | Encounter Summary ---
Author Organization [facility] Address [address] [place] [address] Care Team Providers Care Cylinder Loader Name Role Phone Rosa Isela Sanchez NP Unavailable [phone] Miguel Angel Cochran MD Unavailable [phone] Dilia Hernandez MD Primary Care Provider [phone] Sadiq Brooks MD Unavailable Gaetano Steward MD Unavailable [phone] Dilia Hernandez MD Primary Care Provider [phone] Kole Sapp DO Primary Care Provider [phone] Encounter Details Date Type Department Care Team (Late st Contact Info) Description 01/18/2013 Abstract [facility] AT [address] [place] [address] Miguel Angel Cochran MD [address] [place] [address], [address] [place] [address] Social History Tobacco Use Types [...] on file Not on file worked at [employer] Not on file Not on file Not on file now disabled since 2005 Not on file Not on file Not on file documented as of this encounter Plan of Treatment Not on file documented as of this encounter Visit Diagnoses Not on filedocumented in this encounter Care Teams Cylinder Loader Relationship Specialty Start Date End Date Dilia Hernandez MD [address] [place] [phone] PCP - General FAMILY PRACTICE 12/12/15 01/12/19 Dilia Hernandez MD [address] [place] [address] PCP - [facility] PRACTICE 01/13/19 07/10/24 Kole Sapp DO [address] [place] [address] PCP - General FAMILY PRACTICE 07/11/24 Rosa Isela Sanchez NP [address] [facility] [address] [place] [phone] NURSE PRACTITIONER 12/12/15 02/01/18 Miguel Angel Cochran MD [address] [place] [phone] [place] [employer] Coordinator CARDIOVASCULAR DISEASE 12/12/15 02/01/18 Sadiq Brooks MD [address] [place] [phone] CARDIOVASCULAR DISEASE 02/05/17 Gaetano Steward MD [address] [place] [place] [address] [place] [employer] Coord[employer] CARDIOVASCULAR DISEASE 02/02/18 07/26/24 documented as of this encounter
--- OUTSIDE RECORDS SUMMARY | 2024-10-04 11:53 | XMS_ITS | Clinical Summary ---
Author Organization [facility] Address [address] [place] [address] Care Team Providers Care [employer] Name Role Phone Sadiq Brooks MD Unavailable Kole Sapp DO Primary Care Provider [phone] Allergies No known active allergies Medications tamsulosin [...] acidosis 07/08/2024 Coronary artery disease invo lving [place] coronary artery of [place] heart without angina pectoris 03/17/2017 Morbid obesity with BMI of 40.0-44.9, adult 02/17 Carotid artery disease 03/02/2017 Pain in both lower extremities 03/02/2017 Smoker 03/02/2017 Essential hypertension 03/02/2017 Hyperlipidemia, unspecified hyperlipidemia type 03/02/2017 Encounters Date Type Department Care Team Description 07/09/2024 Travel 07/08/2024 8:50 PM CDT - 07/17/2024 1:43 PM CDT Hospital Encounter [address] [place] [address] Lyudmila Henry MD Naveed, MD Parth Gallegos, [...] drink = 0.6 oz pur e alcohol) [facility] Utilities Answer Date Recorded In the past 12 months has e [employer], [employer], oil, or water [employer] threatened to shut off services in your [...] any time in the past 12 m [facility], were you homeless or living in a nursing home (including now)? 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 SODIUM S/P/B 138 136 - 145 MMOL/L 07/17/2024 5:35 AM CDT [facility] POTASSIUM S/P/B 4.0 3.5 - 5.1 MMOL/L 07/17/2024 5:35 AM T [facility] CHLORIDE S/P/B 109 97 - 115 MMOL/L 07/17/2024 5:35 AM T [facility] CO2 25.0 21.0 - 32.0 MMOL/L 07/17/2024 5:35 AM T [facility] GLUCOSE 90 74 - 106 MG/DL 07/17/2024 5:35 AM T [facility] BUN 10 7 - 18 MG/DL 07/17/2024 5:35 AM T [facility] CREATININE S/P/B 0.78 0.70 - 1.30 MG/DL 07/17/2024 5:35 AM T [facility] CALCIUM S/P/B 8.9 8.5 - 10.1 MG/DL 07/17/2024 5:35 AM T [facility] ANION GAP 4.0 2.0 - 10.0 MMOL/L 07/17/2024 5:35 AM T [facility] OSMOLALITY (CALC) 285 MOSM/KG 025 5:35 AM [facility] Comment:REFERENCE RANGE NOT ESTABLISHED GFR ESTIMATE >90 >90 ML/MIN/1. 73 M2 07/17/2024 5:35 AM [facility] GFR NOTES GFR REFERENCE S: 07/17/2024 5:35 AM T [facility] Comment: THE ESTIMATED GFR IS CALCULATED [...] ml/min/1.73 m2 07/17/2024 4:56 AM CDT Maksim Alba MD LABORATORY Final Result [facility] [address] [place] [address], [place] [phone] [id number] * (ABNORMAL) CBC W/DIFF AUTOMATED (07/17/2024 4:56 AM CDT) Only the most recent of5 resultswithin the time period is included. WBC 3.87(L) 4.00 - 10.80 x10'3/uL 07/17/2024 5:09 AM CDT [facility] RBC 3.07(L) 4.50 - 6.10 x10'6/uL 07/17/2024 5:09 AM CDT [facility] HGB 7.9(L) 13.0 - 18.0 G/DL 07/17/2024 5:09 AM CDT [facility] HCT 26.0(L) 37.0 - 52.0 % 07/17/2024 5:09 AM CDT [facility] MCV 84.7 78.0 - 100.0 FL 07/17/2024 5:09 AM CDT [facility] MCH 25.7(L) 27.0 - 31.0 PG 07/17/2024 5:09 AM CDT [facility] MCHC 30.4(L) 33.0 - 36.0 G/DL 07/17/2024 5:09 AM CDT [facility] RDW 19.9(H) 11.5 - 14.5 % 07/17/2024 5:09 AM CDT [facility] PLT 141(L) 150 - 350 x10'3/uL 07/17/2024 5:09 AM CDT [facility] MPV 9.1 7.4 - 10.4 FL 07/17/2024 5:09 AM CDT [facility] DIFFERENTIAL TYPE AUTOMATED DIFFERENTIAL 07/17/2024 5:09 AM CDT [facility] SEG NEUTROPHILS 54.2 % 5:09 AM CDT [facility] LYMPHOCYTES 34.4 % 07/17/2024 5:09 AM CDT [facility] MONOCYTES 7.8 % 07/17/2024 5:09 AM CDT [facility] EOSINOPHILS 2.8 % 07/17/2024 5:09 AM CDT [facility] BASOPHILS 0.3 % 07/17/2024 5:09 AM CDT [facility] IMMATURE GRANS % 0.5 % 07/18/19 5:09 AM CDT [facility] ABS. NEUTROPHILS 2.10 1.60 - 8.30 x10'3/uL 07/17/2024 5:09 AM CDT [facility] ABS. LYMPHOCYTES 1.33 0.80 - 4.70 x10'3/uL 07/17/2024 5:09 AM CDT [facility] ABS. MONOCYTES 0.30 0.00 - 1.50 x10'3/uL 07/17/2024 5:09 AM CDT [facility] ABS. EOSINOPHILS 0.11 0.00 - 0.40 x10'3/uL 07/17/2024 5:09 AM CDT [facility] ABS. BASOPHILS 0.01 0.00 - 0.20 x10'3/uL 07/17/2024 5:09 AM CDT [facility] ABS. IMMATURE GRANULOCYTES 0.02 0.00 - 0.03 x10'3/uL 07/17/2024 5:09 AM CDT [facility] ABS. NUCLEATED RBC'S 0.00 0.00 - 0.01 x10'3/uL 07/17/2024 5:09 AM CDT [facility] NRBC % 0.0 % 07/17/2024 5:09 AM CDT [facility] 07/17/2024 4:56 AM CDT us Maksim Alba MD LABORATORY Final Result Performing Organization Address City/[facility]/ZIP Co de Phone Number [facility] [address] [place] [address], [place] [phone] * (ABNORMAL) IRON SAT PANEL (IRON,IBC,%SAT) (07/15/2024 3:54 AM CDT) Only the most recent of2 resultswithin the time period is included. IRON 40(L) 65 - 175 MCG/DL 07/15/2024 9:09 AM CDT [facility] IRON BINDING CAPACITY 247(L) 250 - 450 MCG/DL 07/15/2024 9:09 AM CDT [facility] IRON SATURATION 16 % 9:09 AM CDT [facility] Comment:REFERENCE RANGE NOT ESTABLISHED 07/15/2024 3:54 AM CDT us Maksim Alba MD LABORATORY Final Result Performing Organization Address [facility] Co de Phone Number [facility] [address] [place] [address], [place] [phone] * FERRITIN (07/15/2024 3:54 AM CDT) Only the most recent of2 resultswithin the time period is included. FERRITIN 362.5 26.0 - 388.0 NG/ML 07/15/2024 9:09 AM CDT [facility] 07/15/2024 3:54 AM CDT us Maksim Alba MD LABORATORY Final Result Performing Organization Address City/[facility]/ZIP Co de Phone Number [facility] [address] [place] [address], [id number] * (ABNORMAL) CBC, AUTO, NO DIFF (07/14/2024 4:10 AM CDT) Only the most recent of2 resultswithin the time period is included. WBC 3.49(L) 4.00 - 10.80 x10'3/uL 07/14/2024 4:20 AM CDT [facility] RBC 2.82(L) 4.50 - 6.10 x10'6/uL 07/14/2024 4:20 AM CDT [facility] HGB 7.2(L) 13.0 - 18.0 G/DL 07/14/2024 4:20 AM CDT [facility] HCT 23.2(L) 37.0 - 52.0 % 07/14/2024 4:20 AM CDT [facility] MCV 82.3 78.0 - 100.0 FL 07/14/2024 4:20 AM CDT [facility] MCH 25.5(L) 27.0 - 31.0 PG 07/14/2024 4:20 AM CDT [facility] MCHC 31.0(L) 33.0 - 36.0 G/DL 07/14/2024 4:20 AM CDT [facility] RDW 18.6(H) 11.5 - 14.5 % 07/14/2024 4:20 AM CDT [facility] PLT 114(L) 150 - 350 x10'3/uL 07/14/2024 4:20 AM CDT [facility] MPV 9.3 7.4 - 10.4 FL 07/14/2024 4:20 AM CDT [facility] 07/14/2024 4:10 AM CDT Maksim Alba MD LABORATORY Final Result [facility] [address] [place] [address], [id number] * (ABNORMAL) RENAL FUNCTION PANEL (07/13/2024 4:06 AM CDT) Only the most recent of3 resultswithin the time period is included. SODIUM S/P/B 138 136 - 145 MMOL/L 07/13/2024 5:52 AM CDT [facility] POTASSIUM S/P/B 3.7 3.5 - 5.1 MMOL/L 07/13/2024 5:52 AM CDT [facility] CHLORIDE S/P/B 109 97 - 115 MMOL/L 07/13/2024 5:52 AM CDT [facility] CO2 22.5 21.0 - 32.0 MMOL/L 07/13/2024 5:52 AM CDT [facility] GLUCOSE 87 74 - 106 MG/DL 07/13/2024 5:52 AM CDT [facility] BUN 15 7 - 18 MG/DL 07/13/2024 5:52 AM CDT [facility] CREATININE S/P/B 1.01 0.70 - 1.30 MG/DL 07/13/2024 5:52 AM CDT [facility] CALCIUM S/P/B 8.2(L) 8.5 - 10.1 MG/DL 07/13/2024 5:52 AM CDT [facility] ALBUMIN S/P/B 2.7(L) 3.4 - 5.0 G/DL 07/13/2024 5:52 AM CDT [facility] PHOSPHORUS 1.8(L) 2.5 - 4.9 MG/DL 07/13/2024 5:52 AM CDT [facility] ANION GAP 6.5 2.0 - 10.0 MMOL/L 07/13/2024 5:52 AM CDT [facility] OSMOLALITY (CALC) 286 MOSM/KG 025 5:52 AM CDT [facility] Comment:REFERENCE RANGE NOT ESTABLISHED GFR ESTIMATE 82(L) >90 ML/MIN/1. 73 M2 07/13/2024 5:52 AM CDT [facility] GFR NOTES GFR REFERENCE S: 07/13/2024 5:52 AM CDT [facility] Comment: THE ESTIMATED GFR IS CALCULATED [...] us Maksim Alba MD LABORATORY Final Result [facility] [address] [place] [address], [id number] * US RETROPERITONEAL LTD (07/10/2024 10:34 AM CDT) Anatomical Region Laterality Modality Renal Ultrasound 07/10/2024 10:4 2 AM CDT Impressions 07/10/2024 10:43 AM CDT IMPRESSION: No acute renal sonographic abnormality. Referred By: PROVIDER NON-STAFF Interpreted By: Galileo Lewis MD, 07/10/2024 10:42 AM Narrative 07/10/2024 10:43 AM CDT [facility] [address] [address] Examination: US RETROPERITONEAL LTD Exam time: 07/10/2024 [...] Procedure Note Galileo Lewis MD - 07/10/2024 [facility] [address] [place], [place] [address] Examination: US RETROPERITONEAL LTD Exam time: 07/10/2024 [...] - 40.0 MG/DL 07/10/2024 3:21 AM CDT [facility] 07/10/2024 1:29 AM CDT us Charles Connell MD LABORATORY Final Resu lt [facility] [address] [place] [address], [id number] * (ABNORMAL) PTH - INTACT (07/10/2024 1:29 AM CDT) PTH INTACT 240.6(H) 18.4 - 80.1 PG/ML 07/10/2024 2:09 AM CDT [facility] Comment: ASSAY PERFORMED BY CHEMILUMINESCENCE METHODOLOGY USING SIEMENS CENTAUR XPT REAGENT. PATIENT RESULTS DETERMINED BY ASSAYS USING DIFFERENT MANUFACTURERS FOR METHODS MAY NOT BE COMPARABLE. 07/10/2024 1:29 AM CDT Charles Connell MD LABORATORY Final Resu lt Performing Organization Address [facility] de Phone Number [facility] [address] [place] [address], [id number] * (ABNORMAL) PROTEIN ELECTROPHORESIS URINE RANDOM (07/09/2024 3:00 PM CDT) PROTEIN URINE TOTAL RANDOM 45.7(H) <12.0 MG/DL 07/12/2024 3:21 PM CDT [facility] INTERPRETATION THIS URINE PEP WAS INTERPRETED BY 07/13/2024 8:03 AM CDT [facility] Comment: DR ROBEL BURNS THERE IS MILD RANDOM PROTEINURIA WHICH IS MAINLY ALBUMIN. BENCE CONROY PROTEIN IS NOT DETECTED. URINE SPECIMEN / Unknown 07/09/2024 3:00 PM CDT Medina Shine MD URINE ORDERABLES Final Resul t Performing Organization Address [facility] de Phone Number [facility] [address] [place] [address], [place] [phone] * (ABNORMAL) KAPPA LAMBDA FREE RATIO (QST) (07/09/2024 11:40 AM CDT) KAPPA FREE LIGHT CHAIN 76.8(H) 3.3 - 19.4 mg/L 07/13/2024 12:08 AM CDT [facility] JOVANNI HARDINGY LAMBDA FREE LIGHT CHAIN 52.1(H) 5.7 - 26.3 mg/L 07/13/2024 12:08 AM CDT [facility] LOUISCHANTI MEAGHAN KAPPA/LAMBDA FREE 1.47 0.26 - 1.65 07/13/2024 12:08 AM CDT [employer] LOUISTERESE HARDINGInessa Comment: Free kappa/lambda ratio in [...] therapy of these disorders. Test Performed by [employer], [facility], [address] [place] [address] Robel Mott M.D., Ph.D., Director of Laboratories , [facility] [id number] 07/09/2024 11:4 0 AM CDT Medina Shine MD LABORATORY Final Result [employer] [address] , [place] [phone] * TRIIODOTHYRONINE TOTAL , TT-3 (07/09/2024 11:40 AM CDT) T3 TOTAL 63 60 - 181 NG/DL 07/10/2024 12:37 AM CDT [facility] 07/09/2024 11:4 0 AM CDT Maksim Alba MD LABORATORY Final Result [facility] [address] [place] [address], [place] [phone] * POTASSIUM URINE RANDOM (07/09/2024 10:20 AM CDT) K RANDOM (U) 22.3 MMOL/L 07/09/2024 11:04 AM CDT [facility] Comment:REFERENCE RANGE NOT ESTABLISHED URINE SPECIMEN / Unknown 07/09/2024 10:20 AM CDT us Charles Connell MD URINE ORDERABLES Final Res ult Performing Organization Address [facility] Co de Phone Number [facility] [address] [place] [place] [address], [place] [phone] [id number] * UREA NITROGEN URINE RANDOM (07/09/2024 10:20 AM CDT) UREA NITROGEN (U) 681 MG/DL 07/09/2024 11:04 AM CDT [facility] Comment:REFERENCE RANGE NOT ESTABLISHED URINE SPECIMEN / Unknown 07/09/2024 10:20 AM CDT us Charles Connell MD URINE ORDERABLES Final Res ult Performing Organization Address [facility] de Phone Number [facility] [address] [place] [address], [place] [phone] * CREATININE URINE RANDOM (07/09/2024 10:20 AM CDT) Only the most recent of2 resultswithin the time period is included. CREATININE (U) 70.9 MG/DL 07/09/2024 11:04 AM CDT [facility] Comment:REFERENCE RANGE NOT ESTABLISHED URINE SPECIMEN / Unknown 07/09/2024 10:20 AM CDT us Charles Connell MD URINE ORDERABLES Final Res ult Performing Organization Address [facility] Co de Phone Number [facility] [address] [place] [address], [place] [phone] * OSMOLALITY, URINE (07/09/2024 10:20 AM CDT) OSMOLALITY (U) 398 50 - 1,200 MOSM/KG 07/09/2024 11:27 AM CDT [facility] URINE SPECIMEN / Unknown 07/09/2024 10:20 AM CDT Charles Connell MD URINE ORDERABLES Final Res ult [facility] [address] [place] [address], [id number] * ANCA VASCULITIS PANEL (07/09/2024 9:30 AM CDT) MYELOPEROXIDASE AB <1.0 <1.0 AI 2024 7:45 AM CDT [employer] YANETHTERESE MARTINEZ Comment: Value Interpretation <1.0 AI: [...] <1.0 <1.0 AI 07/17/2024 7:45 AM CDT [employer] JOVANNI MARTINEZ Comment: Value Interpretation <1.0 AI: No Antibody Detected >or=1.0 AI: Antibody Detected Autoantibodies to proteinase-3 (NJ-3) are accepted as characteristic for granulomatosis with polyangiitis (GPA, Mayra's), and are detectable in 95% of the histologically proven cases. The cytoplasmic IFA pattern, (c-ANCA), is based largely on autoantibody to NJ-3 which serves as the primary antigen. These autoantibodies are present in active disease. Test Performed by [facility], [id number] [place] [address] Robel Mott M.D., Ph.D., Director of Laboratories , [facility] [id number] 07/09/2024 9:30 AM CDT us Charles Connell MD LABORATORY Final Resu lt [address] [facility] [address] [id number] [place], [place] , [place] [phone] * COMPLEMENT C3 (07/09/2024 9:30 AM CDT) Pathologist [facility] COMPLEMENT C3 176.0 90.0 - 180.0 MG/DL 07/09/2024 10:28 AM CDT [facility] 07/09/2024 9:30 AM CDT Charles Connell MD LABORATORY Final Resu lt Performing Organization Address [facility] de Phone Number [facility] [address] [place] [address], [place] [phone] * IMMUNOFIXATION (07/09/2024 9:30 AM CDT) Pathologist [facility] IMMUNOFIXATION SERUM SEE PATHOLOGIST'S INTERPRETATION 07/12/2024 3:32 PM CDT [facility] IMMUNOFIX (SERUM) INTERPRETATION THIS SERUM IMMUNOTYPING WAS INTERPRETED BY 07/13/2024 8:03 AM CDT [facility] Comment: DR ROBEL BURNS MONOCLONAL PROTEIN NOT IDENTIFIED 07/09/2024 9:30 AM CDT us Charles Connell MD LABORATORY Final Resu lt Performing Organization Address City/[facility] Co de Phone Number [facility] [address] [place] [id number], [place] [phone] * (ABNORMAL) PROTEIN, ELECTROPHORESIS (07/09/2024 9:30 AM CDT) [facility] TOTAL PROTEIN (ELECTROPHORESIS SERUM) 8.5(H) 6.0 - 8.3 G/DL 07/12/2024 3:20 PM CDT [facility] ALBUMIN ELECTROPHORESIS S/P/B 2.7(L) 3.4 - 4.9 G/DL 07/12/2024 3:19 PM CDT [facility] [id number] S/P/B 0.3 0.2 - 0.4 G/DL 07/12/2024 3:19 PM CDT [facility] [id number] S/P/B 0.6 0.4 - 1.0 G/DL 07/12/2024 3:19 PM CDT [facility] BETA GLOBULIN S/P/B 0.7 0.5 - 1.2 G/DL 07/12/2024 3:19 PM CDT [facility] GAMMA GLOBULIN S/P/B 1.6 0.6 - 1.6 G/DL 07/12/2024 3:19 PM CDT [facility] ELECTROPHORESIS INTERPRETATION THIS SERUM PEP WAS INTERPRETED BY 07/13/2024 8:02 AM CDT [facility] Comment: DR ROBEL BURNS THE TOTAL SERUM PROTEIN IS DECREASED. ELECTROPHORESIS IDENTIFIES DECREASED ALBUMIN WITH NO ADDITIONAL QUANTITATIVE ABNORMALITIES. MONOCLONAL PROTEINS ARE NOT DETECTED. 07/09/2024 9:30 AM CDT us Charles Connell MD LABORATORY Final Resu lt [facility] [address] [place] [address], [place] [phone] * (ABNORMAL) OSMOLALITY, BLOOD (07/09/2024 9:30 AM CDT) [facility] OSMOLALITY (S/P/B) 342(H) 275 - 295 MOSM/KG 07/09/2024 11:48 AM CDT [facility] 07/09/2024 9:30 AM CDT Charles Connell MD LABORATORY Final Resu lt [facility] [address] [place] [address], [id number] * CT HEAD WO CON (07/09/2024 6:45 AM CDT) Anatomical Region Laterality Modality Head Computed Tomogra phy 07/09/2024 6:48 AM CDT Impressions 07/09/2024 6:49 AM CDT IMPRESSION: ===== 1. No acute intracranial abnormalities. 2. Atrophy and small vessel ischemic disease. Superimposed acute infarct not excluded. Referred By: PROVIDER NON-STAFF Interpreted By: Wallace Caban MD, 07/09/2024 6:48 AM Narrative 07/09/2024 6:49 AM CDT [facility] [address] [place], [place] [address] EXAMINATION: CT of the head EXAM DATE/TIME: [...] Procedure Note Wallace Caban MD - 07/09/[address] [address] EXAMINATION: CT of the head EXAM DATE/TIME: [...] 6:55 AM Narrative 07/09/2024 6:56 AM CDT [facility] [address] [place], [place] [address] EXAMINATION: CT Cervical Spine without contrast. EXAM [...] Procedure Note Wallace Caban MD - 07/09/2024 [facility] [address] [place], [place] [address] EXAMINATION: CT Cervical Spine without contrast. EXAM [...] - 3.740 uIU/ML 07/09/2024 2:17 AM CDT [facility] Comment: ASSAY PERFORMED BY CHEMILUMINESCENCE METHODOLOGY USING SIEMENS DIMENSION VISTA REAGENT. PATIENT RESULTS DETERMINED BY ASSAYS USING DIFFERENT MANUFACTURERS FOR METHODS MAY NOT BE COMPARABLE. 07/09/2024 1:21 AM CDT us Ricky Jalloh MD LABORATORY Final Res ult [facility] [address] [place] [address], [phone] * VITAMIN B-12 (07/09/2024 1:21 AM CDT) VITAMIN B12 S/P/B 511 193 - 986 PG/ML 07/09/2024 2:24 AM CDT [facility] 07/09/2024 1:21 AM CDT Rikcy Jalloh MD LABORATORY Final Res ult [facility] [address] [place] [address], [id number] * (ABNORMAL) COMPREHENSIVE METABOLIC PANEL (07/09/2024 1:21 AM CDT) Pathologist [facility] SODIUM S/P/B 136 136 - 145 MMOL/L 07/09/2024 2:17 AM CDT [facility] POTASSIUM S/P/B 4.1 3.5 - 5.1 MMOL/L 07/09/2024 2:17 AM CDT [facility] CHLORIDE S/P/B 102 97 - 115 MMOL/L 07/09/2024 2:17 AM CDT [facility] CO2 22.2 21.0 - 32.0 MMOL/L 07/09/2024 2:17 AM CDT [facility] GLUCOSE 93 74 - 106 MG/DL 07/09/2024 2:17 AM CDT [facility] BUN 146(H) 7 - 18 MG/DL 07/09/2024 2:17 AM CDT [facility] CREATININE S/P/B 4.76(H) 0.70 - 1.30 MG/DL 07/09/2024 2:17 AM CDT [facility] CALCIUM S/P/B 8.4(L) 8.5 - 10.1 MG/DL 07/09/2024 2:17 AM CDT [facility] BILIRUBIN TOTAL S/P/B 0.2 0.2 - 1.0 MG/DL 07/09/2024 2:17 AM CDT [facility] ALKALINE PHOSPHATASE S/P/B 46 45 - 115 U/L 07/09/2024 2:17 AM CDT [facility] AST 12(L) 15 - 37 U/L 07/09/2024 2:17 AM CDT [facility] ALT 11(L) 16 - 61 U/L 07/09/2024 2:17 AM CDT [facility] TOTAL PROTEIN S/P/B 8.8(H) 6.4 - 8.2 G/DL 07/09/2024 2:17 AM CDT [facility] ALBUMIN S/P/B 3.3(L) 3.4 - 5.0 G/DL 07/09/2024 2:17 AM CDT [facility] ANION GAP 11.8(H) 2.0 - 10.0 MMOL/L 07/09/2024 2:17 AM CDT [facility] OSMOLALITY (CALC) 329 MOSM/KG 025 2:17 AM T [facility] Comment:REFERENCE RANGE NOT ESTABLISHED GFR ESTIMATE 13(L) >90 ML/MIN/1. 73 M2 07/09/2024 2:17 AM T [facility] GFR NOTES GFR REFERENCE S: 07/09/2024 2:17 AM T [facility] Comment: THE ESTIMATED GFR IS CALCULATED [...] Ricky Jalloh MD LABORATORY Final Res ult [facility] [address] [place] [address], [id number] * (ABNORMAL) THYROXINE, FREE (FT4) (07/09/2024 1:21 AM CDT) FREE T4 1.89(H) 0.76 - 1.46 NG/DL 07/09/2024 2:35 AM CDT [facility] 07/09/2024 1:21 AM CDT Ricky Jalloh MD LABORATORY Final Res ult Performing Organization Address [facility] de Phone Number [facility] [address] [place] [address], [id number] * (ABNORMAL) PHOSPHORUS, INORGANIC PHOSPHATE (07/09/2024 1:21 AM CDT) PHOSPHORUS 8.4(H) 2.5 - 4.9 MG/DL 07/09/2024 2:17 AM CDT [facility] 07/09/2024 1:21 AM CDT Ricky Jalloh MD LABORATORY Final Res ult Performing Organization Address [facility] de Phone Number [facility] [address] [place] [address], [id number] * AMMONIA (07/09/2024 1:21 AM CDT) AMMONIA 16 11 - 32 UMOL/L 07/09/2024 1:57 AM CDT [facility] 07/09/2024 1:21 AM CDT Ricky Jalloh MD LABORATORY Final Res ult Performing Organization Address [facility] Co de Phone Number [facility] [address] [place] [address], [phone] * MAGNESIUM (07/09/2024 1:21 AM CDT) MAGNESIUM 1.6 1.6 - 2.6 MG/DL 07/09/2024 2:17 AM CDT [facility] 07/09/2024 1:21 AM CDT us Ricky Jalloh MD LABORATORY Final Res ult Performing Organization Address [facility] Co de Phone Number [facility] [address] [place] [address], [place] [phone] * KETONES URINE (07/08/2024 9:45 PM CDT) KETONES MG/DL (U) NEGATIVE NEGATIVE 07/08/2024 10:03 PM CDT [facility] URINE SPECIMEN / Unknown 07/08/2024 9:45 PM CDT us Ricky Jalloh MD URINE ORDERABLES Final Re sult Performing Organization Address [facility] de Phone Number [facility] [address] [place] [address], [place] [phone] [id number] * SODIUM URINE RANDOM (07/08/2024 9:45 PM CDT) NA RANDOM (U) 91 MMOL/L 07/08/2024 10:18 PM CDT [facility] Comment:REFERENCE RANGE NOT ESTABLISHED URINE SPECIMEN / Unknown 07/08/2024 9:45 PM CDT us Ricky Jalloh MD URINE ORDERABLES Final Re sult Performing Organization Address [facility] Co de Phone Number [facility] [address] [place] [address], [place] [phone] * URINE DRUG SCREEN (TOXICOLOGY) (07/08/2024 9:45 PM CDT) PHENCYCLIDINE PCP (U) NEGATIVE NEGATIVE 07/08/2024 10:17 PM CDT [facility] BENZODIAZEPINES SCREEN (U) NEGATIVE NEGATIVE 07/08/2024 10:17 PM CDT [facility] COCAINE METABOLITES (U) NEGATIVE NEGATIVE 07/08/2024 10:17 PM CDT [facility] AMPHETAMINE (U) NEGATIVE NEGATIVE 10:17 PM CDT [facility] CANNABINOIDS SCREEN (U) NEGATIVE NEGATIVE 07/08/2024 10:17 PM CDT [facility] OPIATE SCREEN (U) NEGATIVE NEGATIVE 025 10:17 PM CDT [facility] BARBITURATES SCREEN (U) NEGATIVE NEGATIVE 07/08/2024 10:17 PM CDT [facility] URINE TOX COMMENT Unconfirmed screening results are to be used only for medical purposes. 07/08/2024 9:47 PM CDT [facility] CUTOFF CONCENTRATION (U) Cut-off Concentration for a positive result 07/08/2024 9:47 PM CDT [facility] Comment: Phencyclidine 25 ng/mL Benzodiazepines 200 ng/mL Cocaine 300 ng/mL Amphetamine 1000 ng/mL Cannabinoids 50 ng/mL Opiates 300 ng/mL Barbiturates 200 ng/mL URINE SPECIMEN / Unknown 07/08/2024 9:45 PM CDT us Ricky Jalloh MD URINE ORDERABLES Final Re sult [facility] [address] [place] [address], [id number] * XR CHEST PORTABLE (07/08/2024 9:35 PM [...] 9:55 PM Narrative 07/08/2024 9:57 PM CDT [address] [address] EXAMINATION: XR Portable CXR, 1 View INDICATION: Shortness of breath. COMPARISON: Portable AP chest x-ray 01/13/2019. FINDINGS: Exam is somewhat limited due to patient rotation towards the right. The cardiomediastinal silhouette is within normal limits. Pulmonary vascularity is normal. hydrogen cell tender leads overlie the chest and upper abdomen. [...] Procedure Note Daxa Rebollar MD - 07/08/2024 [facility] [address] [place], [place] [address] EXAMINATION: XR Portable CXR, 1 View INDICATION: Shortness of breath. COMPARISON: Portable AP chest x-ray 01/13/2019. FINDINGS: Exam is somewhat limited due to patient rotation towards the right. Thecardiomediastinal silhouette is within normal limits. Pulmonaryvascularity is normal. hydrogen cell tender leads overlie the chest and upperabdomen. There [...] 7.32 - 7.42 07/08/2024 9:48 PM CDT [facility] PCO2 VENOUS 42.5 41.0 - 51.0 MMHG 07/08/2024 9:48 PM CDT [facility] PO2 VENOUS 22.7(L) 25.0 - 40.0 MM HG 07/08/2024 9:48 PM CDT [facility] BICARB VENOUS 19.3(L) 24 - 28 MMOL/L 07/08/2024 9:48 PM CDT [facility] TOTAL CO2 VENOUS 20.6(L) 25.0 - 29.0 MMOL/L 07/08/2024 9:48 PM CDT [facility] BASE DEFICIT VENOUS 6.7(H) 0.0 - 3.0 MMOL/L 07/08/2024 9:48 PM CDT [facility] O2 SAT VENOUS 23 <75 % 07/08/2024 9:48 PM CDT [facility] 07/08/2024 9:23 PM CDT Ricky Jalloh MD LABORATORY Final Res ult Performing Organization Address [facility]/ZIP Co de Phone Number [facility] [address] [place] [address], [id number] * LACTIC ACID (07/08/2024 9:23 PM CDT) LACTIC ACID VENOUS 2.0 0.4 - 2.0 MMOL/L 07/08/2024 10:04 PM CDT [facility] 07/08/2024 9:23 PM CDT Ricky Jalloh MD LABORATORY Final Res ult Performing Organization Address [facility] Co de Phone Number [facility] [address] [place] [address], [phone] * CK (CPK) (07/08/2024 9:23 PM CDT) CPK 110 39 - 308 U/L 07/08/2024 11:02 PM CDT [facility] 07/08/2024 9:23 PM CDT Ricky Jalloh MD LABORATORY Final Res ult Performing Organization Address City/[facility]/ZIP Co de Phone Number [facility] [address] [place] [address], [phone] * CULTURE, BACTERIA, BLOOD (07/08/2024 9:22 PM CDT) SPEC DESCRIPTION BLOOD 07/08/2024 9:00 PM CDT [facility] SPECIAL REQUESTS NO SPECIAL REQUEST 07/08/2024 9:00 PM CDT [facility] CULTURE RESULT NO GROWTH 5 DAYS 07/13/2024 10:21 PM CDT [facility] BLOOD SPECIMEN OBTAINED FOR BLOOD CULTURE / Unknown 07/08/2024 9:22 PM CDT 07/08/2024 9:34 PM CDT Ricky Jalloh MD MICROBIOLOGY - GENERAL OR DERABLES Final Result [facility] [address] [place] [address], [id number] * ECG 12 lead (07/08/2024 9:09 PM CDT) 07/08/2024 9:09 PM CDT Narrative [facility] - 07/08/2024 10:11 PM CDT [facility] [address] [place] [address] Test Date: 2024-07-08 Pat Name: [facility] Department: 1 Room: [facility] Gender: Male 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 : 1960 Requested By: RICKY JALLOH Order Number: [id number] Reading MD: Abram Clay Measurements Intervals [place] Rate: 84 P: -12 [place]: 166 QRS: 42 QRSD: 120 T: 64 QT: 357 QTc: 423 Interpretive Statements SINUS RHYTHM MODERATE INTRAVENTRICULAR CONDUCTION DELAY [110+ ms QRS DURATION] MINIMAL ST DEPRESSION [0.025+ mV ST DEPRESSION] Procedure Note Abram Clay MD - 07/08/2024 [facility] [address] [place] [address] Test Date: 2024-07-08 Pat Name: [facility] Department: 1 Room: [facility] Gender: Male 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 : 1960 Requested By: RICKY JALLOH Order Number: [id number] Reading MD: Abram Clay Measurements Intervals [place] Rate: 84 P: -12 [place]: 166 QRS: 42 QRSD: 120 T: 64 QT: 357 QTc: 423 Interpretive Statements SINUS RHYTHM MODERATE INTRAVENTRICULAR CONDUCTION DELAY [110+ ms QRS DURATION] MINIMAL ST DEPRESSION [0.025+ mV ST DEPRESSION] us Ricky Jalloh MD ECG ORDERABLES Final Res ult [facility] * LIPID PANEL (08/12/2012 12:00 AM [...] TO EPIC CONVERSION - 01/16/2013 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 JR Jan 16 2013 10:01:00:000AM us Generic Conversion Md [facility] Final R esult [employer] TO EPIC CONVERSION from Last 3 Months or Most Recently Relevant to Health Maintenance Insurance MEDICAID [facility] Advance Directives Documents on File Type Date Recorded 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
--- OUTSIDE RECORDS SUMMARY | 2024-10-04 11:53 | XMS_ITS | Encounter Summary ---
Author Organization [facility] Address [address] [place] [address] Care Team Providers Care Hair Assistant Name Role Phone Dilia Hernandez MD Primary Care Provider [phone] Sadiq Brooks MD Unavailable Gaetano Steward MD Unavailable [phone] Dilia Hernandez MD Primary Care Provider [phone] Kole Sapp DO Primary Care Provider [phone] Encounter Details Date Type Department Care Team (Late st Contact Info) Description 07/23/2018 Abstract [facility] CONVERSION [address] [place] [address] , Generic ConversionMD Social History Tobacco [...] on file Not on file worked at [employer] Not on file Not on file Not on file now disabled since 2005 Not on file Not on file Not on file documented as of this encounter Plan of Treatment Not on file documented as of this encounter Visit Diagnoses Not on filedocumented in this encounter Care Teams Hair Assistant Relationship Specialty Start Date End Date Dilia Hernandez MD [address] [place] [address] PCP - General FAMILY PRACTICE 12/12/15 01/12/19 Dilia Hernandez MD [address] [place] [address] PCP - General FAMILY PRACTICE 01/13/19 07/10/24 Kole Sapp DO [address] [place] [address] PCP - General FAMILY PRACTICE 07/11/24 Sadiq Brooks MD [address] [place] [address] CARDIOVASCULAR DISEASE 02/05/17 Gaetano Steward MD [address] [place] [address] [employer] CARDIOVASCULAR DISEASE 02/02/18 07/26/24 documented as of this encounter
[2024-10-04 11:58] LABS: Hematocrit 37.9 % (37.0-46.0); Hemoglobin 12.0 g/dL (12.4-15.3); Immature Granulocyte Percent A 0.6 % (0.0-0.0); Lymphocytes Absolute Auto 1.42 K/mm3 (1.10-4.50); Mean Corpuscular HGB Conc 31.7 g/dL (32-36); Mean Corpuscular Hemoglobin 26.3 pg (27.0-31.0); Mean Corpuscular Volume 82.9 fL (78.0-102.0); Nucleated Red Blood Cells Absolute Auto 0.00 K/mm3 (0.00-0.00); Nucleated Red Blood Cells Perc 0.0 % (0-0.0); Platelet Count Result 190 K/mm3 (150-420); Red Blood Count 4.57 M/mm3 (4.70-6.10); White Blood Count 7.2 K/mm3 (4.8-10.8)
[2024-10-04 12:23] LABS: Alanine Aminotransferase 23 U/L (6-50); Albumin Level 4.2 g/dL (3.5-5.1); Alkaline Phosphatase 104 U/L (38-126); Anion Gap 8 mmol/L (4-12); Aspartate Amino Transferase 21 U/L (17-59); Bilirubin,Total 0.6 mg/dL (0.2-1.3); Blood Urea Nitrogen 12 mg/dL (9-20); Calcium 9.7 mg/dL (8.4-10.2); Carbon Dioxide 31 mmol/L (22-30); Chloride 88 mmol/L (98-107); Estimated Glomerular Filt Rate > 60; Glucose 99 mg/dL (65-110); Osmolality Calculated 263 mOsm/kg (285-295); Potassium 4.6 mmol/L (3.4-5.0); Sodium 127 mmol/L (137-145); Total Protein 7.6 g/dL (6.3-8.2)
== END 2024-10-04 11:19 | disposition home or self-care (01) ==
LOC: CHSLAB 11:19
PROVIDERS: PCP Family Medicine; Visit Provider Family Medicine
DX: N40.0 Benign prostatic hyperplasia without lower urinary tract symptoms (principal); J90 Pleural effusion, not elsewhere classified; R91.8 Other nonspecific abnormal finding of lung field
CPT/HCPCS: 36415; 71046; 80053; 85025

== ENCOUNTER 2024-10-06 10:50 | Outpatient (CLI) | payer OTHER, SELFPAY ==
--- OUTSIDE RECORDS SUMMARY | 2024-10-06 10:54 | XMS_ITS | Encounter Summary ---
Author Organization [facility] Address [address] [place] [address] Care Team Providers Care Oracle Consultant Name Role Phone Dilia Hernandez MD Primary Care Provider [phone] Sadiq Brooks MD Unavailable Gaetano Steward MD Unavailable [phone] Dilia Hernandez MD Primary Care Provider [phone] Kole Sapp DO Primary Care Provider [phone] Encounter Details Date Type Department Care Team (Late st Contact Info) Description 07/23/2018 Abstract SFL CONVERSION [address] [place] [address] , Generic ConversionMD Social History Tobacco [...] on file Not on file worked at [employer] Not on file Not on file Not on file now disabled since 2005 Not on file Not on file Not on file documented as of this encounter Plan of Treatment Not on file documented as of this encounter Visit Diagnoses Not on filedocumented in this encounter Care Teams Oracle Consultant Relationship Specialty Start Date End Date Dilia Hernandez MD [address] [place] [address] PCP - General FAMILY PRACTICE 12/12/15 01/12/19 Dilia Hernandez MD [address] [place] [address] PCP - General FAMILY PRACTICE 01/13/19 07/10/24 Kole Sapp DO [address] [place] [address] PCP - General FAMILY PRACTICE 07/11/24 Sadiq Brooks MD [address] [place] [address] CARDIOVASCULAR DISEASE 02/05/17 Gaetano Steward MD [address] [place] [address] [employer] CARDIOVASCULAR DISEASE 02/02/18 07/26/24 documented as of this encounter
--- OUTSIDE RECORDS SUMMARY | 2024-10-06 10:54 | XMS_ITS | Encounter Summary ---
Author Organization [facility] Address [address] [place] [address] Care Team Providers Care Inspector And Clipper Name Role Phone Rosa Isela Sanchez NP Unavailable [phone] Miguel Angel Cochran MD Unavailable [phone] Dilia Hernandez MD Primary Care Provider [phone] Sadiq Brooks MD Unavailable Gaetano Steward MD Unavailable [phone] Dilia Hernandez MD Primary Care Provider [phone] Kole Sapp DO Primary Care Provider [phone] Encounter Details Date Type Department Care Team (Late st Contact Info) Description 01/18/2013 Abstract [facility] AT [address] [place] [address] Miguel Angel Cochran MD [address] [place] [address], [address] [place] [address] Social History Tobacco Use Types [...] on file Not on file worked at [employer] Not on file Not on file Not on file now disabled since 2005 Not on file Not on file Not on file documented as of this encounter Plan of Treatment Not on file documented as of this encounter Visit Diagnoses Not on filedocumented in this encounter Care Teams Inspector And Clipper Relationship Specialty Start Date End Date Dilia Hernandez MD [address] [place] [address] PCP - General FAMILY PRACTICE 12/12/15 01/12/19 Dilia Hernandez MD [address] [place] [address] PCP - [facility] PRACTICE 01/13/19 07/10/24 Kole Sapp DO [address] [place] [address] PCP - General FAMILY PRACTICE 07/11/24 Rosa Isela Sanchez NP [address] [facility] [address] [place] [address] NURSE PRACTITIONER 12/12/15 02/01/18 Miguel Angel Cochran MD [address] [place] [address] [place] [employer] Sprayer CARDIOVASCULAR DISEASE 12/12/15 02/01/18 Sadiq Brooks MD [address] [place] [address] CARDIOVASCULAR DISEASE 02/05/17 Gaetano Steward MD [address] [place] [address] [place] [employer] CARDIOVASCULAR DISEASE 02/02/18 07/26/24 documented as of this encounter
--- OUTSIDE RECORDS SUMMARY | 2024-10-06 10:54 | XMS_ITS | Clinical Summary ---
Author Organization [facility] Address [address] [place] [address] Care Team Providers Care Management Aide Name Role Phone Sadiq Brooks MD Unavailable Koel Sapp DO Primary Care Provider [phone] Allergies No known active allergies Medications tamsulosin [...] acidosis 07/08/2024 Coronary artery disease invo lving [place] coronary artery of [place] heart without angina pectoris 03/17/2017 Morbid obesity with BMI of 40.0-44.9, adult 02/17 Carotid artery disease 03/02/2017 Pain in both lower extremities 03/02/2017 Smoker 03/02/2017 Essential hypertension 03/02/2017 Hyperlipidemia, unspecified hyperlipidemia type 03/02/2017 Encounters Date Type Department Care Team Description 07/09/2024 Travel 07/08/2024 8:50 PM CDT - 07/17/2024 1:43 PM CDT Hospital Encounter [place] [address] [place] [address] Lyudmila Henry MD Naveed, MD Parth Gallegos, [...] drink = 0.6 oz pur e alcohol) [facility] Utilities Answer Date Recorded In the past 12 months has e [employer], [employer]@ [employer], oil, or water [employer] threatened to shut off services in your [...] any time in the past 12 m [facility], were you homeless or living in a custodial (including now)? 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 SODIUM S/P/B 138 136 - 145 MMOL/L 07/17/2024 5:35 AM CDT [facility] POTASSIUM S/P/B 4.0 3.5 - 5.1 MMOL/L 07/17/2024 5:35 AM T [facility] CHLORIDE S/P/B 109 97 - 115 MMOL/L 07/17/2024 5:35 AM T [facility] CO2 25.0 21.0 - 32.0 MMOL/L 07/17/2024 5:35 AM T [facility] GLUCOSE 90 74 - 106 MG/DL 07/17/2024 5:35 AM T [facility] BUN 10 7 - 18 MG/DL 07/17/2024 5:35 AM T [facility] CREATININE S/P/B 0.78 0.70 - 1.30 MG/DL 07/17/2024 5:35 AM T [facility] CALCIUM S/P/B 8.9 8.5 - 10.1 MG/DL 07/17/2024 5:35 AM T [facility] ANION GAP 4.0 2.0 - 10.0 MMOL/L 07/17/2024 5:35 AM T [facility] OSMOLALITY (CALC) 285 MOSM/KG 025 5:35 AM [facility] Comment:REFERENCE RANGE NOT ESTABLISHED GFR ESTIMATE >90 >90 ML/MIN/1. 73 M2 07/17/2024 5:35 AM [facility] GFR NOTES GFR REFERENCE S: 07/17/2024 5:35 AM T [facility] Comment: THE ESTIMATED GFR IS CALCULATED [...] CDT Maksim Alba MD LABORATORY Final Result [facility] [address] [place] [address], [place] [phone] [id number] * (ABNORMAL) CBC W/DIFF AUTOMATED (07/17/2024 4:56 AM CDT) Only the most recent of5 resultswithin the time period is included. WBC 3.87(L) 4.00 - 10.80 x10'3/uL 07/17/2024 5:09 AM CDT [facility] RBC 3.07(L) 4.50 - 6.10 x10'6/uL 07/17/2024 5:09 AM CDT [facility] HGB 7.9(L) 13.0 - 18.0 G/DL 07/17/2024 5:09 AM CDT [facility] HCT 26.0(L) 37.0 - 52.0 % 07/17/2024 5:09 AM CDT [facility] MCV 84.7 78.0 - 100.0 FL 07/17/2024 5:09 AM CDT [facility] MCH 25.7(L) 27.0 - 31.0 PG 07/17/2024 5:09 AM CDT [facility] MCHC 30.4(L) 33.0 - 36.0 G/DL 07/17/2024 5:09 AM CDT [facility] RDW 19.9(H) 11.5 - 14.5 % 07/17/2024 5:09 AM CDT [facility] PLT 141(L) 150 - 350 x10'3/uL 07/17/2024 5:09 AM CDT [facility] MPV 9.1 7.4 - 10.4 FL 07/17/2024 5:09 AM CDT [facility] DIFFERENTIAL TYPE AUTOMATED DIFFERENTIAL 07/17/2024 5:09 AM CDT [facility] SEG NEUTROPHILS 54.2 % 5:09 AM CDT [facility] LYMPHOCYTES 34.4 % 07/17/2024 5:09 AM CDT [facility] MONOCYTES 7.8 % 07/17/2024 5:09 AM CDT [facility] EOSINOPHILS 2.8 % 07/17/2024 5:09 AM CDT [facility] BASOPHILS 0.3 % 07/17/2024 5:09 AM CDT [facility] IMMATURE GRANS % 0.5 % 07/18/19 5:09 AM CDT [facility] ABS. NEUTROPHILS 2.10 1.60 - 8.30 x10'3/uL 07/17/2024 5:09 AM CDT [facility] ABS. LYMPHOCYTES 1.33 0.80 - 4.70 x10'3/uL 07/17/2024 5:09 AM CDT [facility] ABS. MONOCYTES 0.30 0.00 - 1.50 x10'3/uL 07/17/2024 5:09 AM CDT [facility] ABS. EOSINOPHILS 0.11 0.00 - 0.40 x10'3/uL 07/17/2024 5:09 AM CDT [facility] ABS. BASOPHILS 0.01 0.00 - 0.20 x10'3/uL 07/17/2024 5:09 AM CDT [facility] ABS. IMMATURE GRANULOCYTES 0.02 0.00 - 0.03 x10'3/uL 07/17/2024 5:09 AM CDT [facility] ABS. NUCLEATED RBC'S 0.00 0.00 - 0.01 x10'3/uL 07/17/2024 5:09 AM CDT [facility] NRBC % 0.0 % 07/17/2024 5:09 AM CDT [facility] 07/17/2024 4:56 AM CDT us Maksim Alba MD LABORATORY Final Result Performing Organization Address City/[facility]/ZIP Co de Phone Number [facility] [address] [place] [address], [place] [phone] [id number] * (ABNORMAL) IRON SAT PANEL (IRON,IBC,%SAT) (07/15/2024 3:54 AM CDT) Only the most recent of2 resultswithin the time period is included. IRON 40(L) 65 - 175 MCG/DL 07/15/2024 9:09 AM CDT [facility] IRON BINDING CAPACITY 247(L) 250 - 450 MCG/DL 07/15/2024 9:09 AM CDT [facility] IRON SATURATION 16 % 9:09 AM CDT [facility] Comment:REFERENCE RANGE NOT ESTABLISHED 07/15/2024 3:54 AM CDT us Maksim Alba MD LABORATORY Final Result Performing Organization Address [facility] Co de Phone Number [facility] [address] [place] [address], [place] [phone] * FERRITIN (07/15/2024 3:54 AM CDT) Only the most recent of2 resultswithin the time period is included. FERRITIN 362.5 26.0 - 388.0 NG/ML 07/15/2024 9:09 AM CDT [facility] 07/15/2024 3:54 AM CDT us Maksim Alba MD LABORATORY Final Result Performing Organization Address City/[facility]/ZIP Co de Phone Number [facility] [address] [place] [address], [id number] * (ABNORMAL) CBC, AUTO, NO DIFF (07/14/2024 4:10 AM CDT) Only the most recent of2 resultswithin the time period is included. WBC 3.49(L) 4.00 - 10.80 x10'3/uL 07/14/2024 4:20 AM CDT [facility] RBC 2.82(L) 4.50 - 6.10 x10'6/uL 07/14/2024 4:20 AM CDT [facility] HGB 7.2(L) 13.0 - 18.0 G/DL 07/14/2024 4:20 AM CDT [facility] HCT 23.2(L) 37.0 - 52.0 % 07/14/2024 4:20 AM CDT [facility] MCV 82.3 78.0 - 100.0 FL 07/14/2024 4:20 AM CDT [facility] MCH 25.5(L) 27.0 - 31.0 PG 07/14/2024 4:20 AM CDT [facility] MCHC 31.0(L) 33.0 - 36.0 G/DL 07/14/2024 4:20 AM CDT [facility] RDW 18.6(H) 11.5 - 14.5 % 07/14/2024 4:20 AM CDT [facility] PLT 114(L) 150 - 350 x10'3/uL 07/14/2024 4:20 AM CDT [facility] MPV 9.3 7.4 - 10.4 FL 07/14/2024 4:20 AM CDT [facility] 07/14/2024 4:10 AM CDT Maksim Alba MD LABORATORY Final Result [facility] [address] [place] [address], [id number] * (ABNORMAL) RENAL FUNCTION PANEL (07/13/2024 4:06 AM CDT) Only the most recent of3 resultswithin the time period is included. SODIUM S/P/B 138 136 - 145 MMOL/L 07/13/2024 5:52 AM CDT [facility] POTASSIUM S/P/B 3.7 3.5 - 5.1 MMOL/L 07/13/2024 5:52 AM CDT [facility] CHLORIDE S/P/B 109 97 - 115 MMOL/L 07/13/2024 5:52 AM CDT [facility] CO2 22.5 21.0 - 32.0 MMOL/L 07/13/2024 5:52 AM CDT [facility] GLUCOSE 87 74 - 106 MG/DL 07/13/2024 5:52 AM CDT [facility] BUN 15 7 - 18 MG/DL 07/13/2024 5:52 AM CDT [facility] CREATININE S/P/B 1.01 0.70 - 1.30 MG/DL 07/13/2024 5:52 AM CDT [facility] CALCIUM S/P/B 8.2(L) 8.5 - 10.1 MG/DL 07/13/2024 5:52 AM CDT [facility] ALBUMIN S/P/B 2.7(L) 3.4 - 5.0 G/DL 07/13/2024 5:52 AM CDT [facility] PHOSPHORUS 1.8(L) 2.5 - 4.9 MG/DL 07/13/2024 5:52 AM CDT [facility] ANION GAP 6.5 2.0 - 10.0 MMOL/L 07/13/2024 5:52 AM CDT [facility] OSMOLALITY (CALC) 286 MOSM/KG 025 5:52 AM CDT [facility] Comment:REFERENCE RANGE NOT ESTABLISHED GFR ESTIMATE 82(L) >90 ML/MIN/1. 73 M2 07/13/2024 5:52 AM CDT [facility] GFR NOTES GFR REFERENCE S: 07/13/2024 5:52 AM CDT [facility] Comment: THE ESTIMATED GFR IS CALCULATED [...] us Maksim Alba MD LABORATORY Final Result [facility] [address] [place] [address], [id number] * US RETROPERITONEAL LTD (07/10/2024 10:34 AM CDT) Anatomical Region Laterality Modality Renal Ultrasound 07/10/2024 10:4 2 AM CDT Impressions 07/10/2024 10:43 AM CDT IMPRESSION: No acute renal sonographic abnormality. Referred By: PROVIDER NON-STAFF Interpreted By: Galileo Lewis MD, 07/10/2024 10:42 AM Narrative 07/10/2024 10:43 AM CDT [facility] [address] [address] Examination: US RETROPERITONEAL LTD Exam time: 07/10/2024 [...] Procedure Note Galileo Lewis MD - 07/10/2024 [facility] [address] [place], [place] [address] Examination: US RETROPERITONEAL LTD Exam time: 07/10/2024 [...] - 40.0 MG/DL 07/10/2024 3:21 AM CDT [facility] 07/10/2024 1:29 AM CDT us Charles Connell MD LABORATORY Final Resu lt [facility] [address] [place] [address], [id number] * (ABNORMAL) PTH - INTACT (07/10/2024 1:29 AM CDT) PTH INTACT 240.6(H) 18.4 - 80.1 PG/ML 07/10/2024 2:09 AM CDT [facility] Comment: ASSAY PERFORMED BY CHEMILUMINESCENCE METHODOLOGY USING SIEMENS CENTAUR XPT REAGENT. PATIENT RESULTS DETERMINED BY ASSAYS USING DIFFERENT MANUFACTURERS FOR METHODS MAY NOT BE COMPARABLE. 07/10/2024 1:29 AM CDT Charles Connell MD LABORATORY Final Resu lt Performing Organization Address [facility] de Phone Number [facility] [address] [place] [address], [id number] * (ABNORMAL) PROTEIN ELECTROPHORESIS URINE RANDOM (07/09/2024 3:00 PM CDT) PROTEIN URINE TOTAL RANDOM 45.7(H) <12.0 MG/DL 07/12/2024 3:21 PM CDT [facility] INTERPRETATION THIS URINE PEP WAS INTERPRETED BY 07/13/2024 8:03 AM CDT [facility] Comment: DR ROBEL BURNS THERE IS MILD RANDOM PROTEINURIA WHICH IS MAINLY ALBUMIN. BENCE CONROY PROTEIN IS NOT DETECTED. URINE SPECIMEN / Unknown 07/09/2024 3:00 PM CDT Medina Shine MD URINE ORDERABLES Final Resul t Performing Organization Address [facility] de Phone Number [facility] [address] [place] [address], [place] [phone] * (ABNORMAL) KAPPA LAMBDA FREE RATIO (QST) (07/09/2024 11:40 AM CDT) KAPPA FREE LIGHT CHAIN 76.8(H) 3.3 - 19.4 mg/L 07/13/2024 12:08 AM CDT [facility] JOVANNI HARDINGY LAMBDA FREE LIGHT CHAIN 52.1(H) 5.7 - 26.3 mg/L 07/13/2024 12:08 AM CDT [facility] LOUISCHANTI MEAGHAN KAPPA/LAMBDA FREE 1.47 0.26 - 1.65 07/13/2024 12:08 AM CDT [facility] LOUISTERESE HARDINGInessa Comment: Free kappa/lambda ratio in [...] therapy of these disorders. Test Performed by [email or web address], [facility], [address] [place] [address] Robel Mott M.D., Ph.D., Director of Laboratories , [facility] [id number] 07/09/2024 11:4 0 AM CDT Medina Shine MD LABORATORY Final Result [facility] [address] , [place] [phone] * TRIIODOTHYRONINE TOTAL , TT-3 (07/09/2024 11:40 AM CDT) T3 TOTAL 63 60 - 181 NG/DL 07/10/2024 12:37 AM CDT [facility] 07/09/2024 11:4 0 AM CDT Maksim Alba MD LABORATORY Final Result [facility] [address] [place] [address], [place] [phone] * POTASSIUM URINE RANDOM (07/09/2024 10:20 AM CDT) K RANDOM (U) 22.3 MMOL/L 07/09/2024 11:04 AM CDT [facility] Comment:REFERENCE RANGE NOT ESTABLISHED URINE SPECIMEN / Unknown 07/09/2024 10:20 AM CDT us Charles Connell MD URINE ORDERABLES Final Res ult Performing Organization Address [facility] Co de Phone Number [facility] [address] [place] [address], [place] [phone] [phone] * UREA NITROGEN URINE RANDOM (07/09/2024 10:20 AM CDT) UREA NITROGEN (U) 681 MG/DL 07/09/2024 11:04 AM CDT [facility] Comment:REFERENCE RANGE NOT ESTABLISHED URINE SPECIMEN / Unknown 07/09/2024 10:20 AM CDT us Charles Connell MD URINE ORDERABLES Final Res ult Performing Organization Address [facility] de Phone Number [facility] [address] [place] [address], [place] [phone] * CREATININE URINE RANDOM (07/09/2024 10:20 AM CDT) Only the most recent of2 resultswithin the time period is included. CREATININE (U) 70.9 MG/DL 07/09/2024 11:04 AM CDT [facility] Comment:REFERENCE RANGE NOT ESTABLISHED URINE SPECIMEN / Unknown 07/09/2024 10:20 AM CDT us Charles Connell MD URINE ORDERABLES Final Res ult Performing Organization Address [facility] Co de Phone Number [facility] [address] [place] [address], [place] [phone] * OSMOLALITY, URINE (07/09/2024 10:20 AM CDT) OSMOLALITY (U) 398 50 - 1,200 MOSM/KG 07/09/2024 11:27 AM CDT [facility] URINE SPECIMEN / Unknown 07/09/2024 10:20 AM CDT Charles Connell MD URINE ORDERABLES Final Res ult [facility] [address] [place] [address], [id number] * ANCA VASCULITIS PANEL (07/09/2024 9:30 AM CDT) MYELOPEROXIDASE AB <1.0 <1.0 AI 2024 7:45 AM CDT [facility] YANETHTERESE MARTINEZ Comment: Value Interpretation <1.0 AI: [...] <1.0 <1.0 AI 07/17/2024 7:45 AM CDT [facility] JOVANNI MARTINEZ Comment: Value Interpretation <1.0 AI: No Antibody Detected >or=1.0 AI: Antibody Detected Autoantibodies to proteinase-3 (NV-3) are accepted as characteristic for granulomatosis with polyangiitis (GPA, Mayra's), and are detectable in 95% of the histologically proven cases. The cytoplasmic IFA pattern, (c-ANCA), is based largely on autoantibody to NV-3 which serves as the primary antigen. These autoantibodies are present in active disease. Test Performed by [employer] [facility] [facility], [address] [place] [address] Robel Mott M.D., Ph.D., Director of Laboratories , [facility] [id number] 07/09/2024 9:30 AM CDT us Charles Connell MD LABORATORY Final Resu lt [facility] [place] [id number] [place], [place] , [place] [phone] * COMPLEMENT C3 (07/09/2024 9:30 AM CDT) Pathologist [facility] COMPLEMENT C3 176.0 90.0 - 180.0 MG/DL 07/09/2024 10:28 AM CDT [facility] 07/09/2024 9:30 AM CDT Charles Connell MD LABORATORY Final Resu lt Performing Organization Address [facility] de Phone Number [facility] [address] [place] [address], [place] [phone] * IMMUNOFIXATION (07/09/2024 9:30 AM CDT) Pathologist [facility] IMMUNOFIXATION SERUM SEE PATHOLOGIST'S INTERPRETATION 07/12/2024 3:32 PM CDT [facility] IMMUNOFIX (SERUM) INTERPRETATION THIS SERUM IMMUNOTYPING WAS INTERPRETED BY 07/13/2024 8:03 AM CDT [facility] Comment: DR ROBEL BURNS MONOCLONAL PROTEIN NOT IDENTIFIED 07/09/2024 9:30 AM CDT us Charles Connell MD LABORATORY Final Resu lt Performing Organization Address City/[facility] Co de Phone Number [facility] [address] [place] [id number], [place] [phone] * (ABNORMAL) PROTEIN, ELECTROPHORESIS (07/09/2024 9:30 AM CDT) [facility] TOTAL PROTEIN (ELECTROPHORESIS SERUM) 8.5(H) 6.0 - 8.3 G/DL 07/12/2024 3:20 PM CDT [facility] ALBUMIN ELECTROPHORESIS S/P/B 2.7(L) 3.4 - 4.9 G/DL 07/12/2024 3:19 PM CDT [facility] [id number] S/P/B 0.3 0.2 - 0.4 G/DL 07/12/2024 3:19 PM CDT [facility] [id number] S/P/B 0.6 0.4 - 1.0 G/DL 07/12/2024 3:19 PM CDT [facility] BETA GLOBULIN S/P/B 0.7 0.5 - 1.2 G/DL 07/12/2024 3:19 PM CDT [facility] GAMMA GLOBULIN S/P/B 1.6 0.6 - 1.6 G/DL 07/12/2024 3:19 PM CDT [facility] ELECTROPHORESIS INTERPRETATION THIS SERUM PEP WAS INTERPRETED BY 07/13/2024 8:02 AM CDT [facility] Comment: DR ROBEL BURNS THE TOTAL SERUM PROTEIN IS DECREASED. ELECTROPHORESIS IDENTIFIES DECREASED ALBUMIN WITH NO ADDITIONAL QUANTITATIVE ABNORMALITIES. MONOCLONAL PROTEINS ARE NOT DETECTED. 07/09/2024 9:30 AM CDT us Charles Connell MD LABORATORY Final Resu lt [facility] [address] [place] [address], [place] [phone] [id number] * (ABNORMAL) OSMOLALITY, BLOOD (07/09/2024 9:30 AM CDT) [facility] OSMOLALITY (S/P/B) 342(H) 275 - 295 MOSM/KG 07/09/2024 11:48 AM CDT [facility] 07/09/2024 9:30 AM CDT Charles Connell MD LABORATORY Final Resu lt [facility] [address] [place] [address], [id number] * CT HEAD WO CON (07/09/2024 6:45 AM CDT) Anatomical Region Laterality Modality Head Computed Tomogra phy 07/09/2024 6:48 AM CDT Impressions 07/09/2024 6:49 AM CDT IMPRESSION: ===== 1. No acute intracranial abnormalities. 2. Atrophy and small vessel ischemic disease. Superimposed acute infarct not excluded. Referred By: PROVIDER NON-STAFF Interpreted By: Wallace Caban MD, 07/09/2024 6:48 AM Narrative 07/09/2024 6:49 AM CDT [facility] [address] [place], [place] [address] EXAMINATION: CT of the head EXAM DATE/TIME: [...] Procedure Note Wallace Caban MD - 07/09/[address] [address] EXAMINATION: CT of the head EXAM DATE/TIME: [...] 6:55 AM Narrative 07/09/2024 6:56 AM CDT [facility] [address] [place], [place] [address] EXAMINATION: CT Cervical Spine without contrast. EXAM [...] Procedure Note Wallace Caban MD - 07/09/2024 [facility] [address] [place], [place] [address] EXAMINATION: CT Cervical Spine without contrast. EXAM [...] - 3.740 uIU/ML 07/09/2024 2:17 AM CDT [facility] Comment: ASSAY PERFORMED BY CHEMILUMINESCENCE METHODOLOGY USING SIEMENS DIMENSION VISTA REAGENT. PATIENT RESULTS DETERMINED BY ASSAYS USING DIFFERENT MANUFACTURERS FOR METHODS MAY NOT BE COMPARABLE. 07/09/2024 1:21 AM CDT us Ricky Jalloh MD LABORATORY Final Res ult [facility] [address] [place] [address], [id number] * VITAMIN B-12 (07/09/2024 1:21 AM CDT) VITAMIN B12 S/P/B 511 193 - 986 PG/ML 07/09/2024 2:24 AM CDT [facility] 07/09/2024 1:21 AM CDT Ricky Jalloh MD LABORATORY Final Res ult [facility] [address] [place] [address], [id number] * (ABNORMAL) COMPREHENSIVE METABOLIC PANEL (07/09/2024 1:21 AM CDT) Pathologist [facility] SODIUM S/P/B 136 136 - 145 MMOL/L 07/09/2024 2:17 AM CDT [facility] POTASSIUM S/P/B 4.1 3.5 - 5.1 MMOL/L 07/09/2024 2:17 AM CDT [facility] CHLORIDE S/P/B 102 97 - 115 MMOL/L 07/09/2024 2:17 AM CDT [facility] CO2 22.2 21.0 - 32.0 MMOL/L 07/09/2024 2:17 AM CDT [facility] GLUCOSE 93 74 - 106 MG/DL 07/09/2024 2:17 AM CDT [facility] BUN 146(H) 7 - 18 MG/DL 07/09/2024 2:17 AM CDT [facility] CREATININE S/P/B 4.76(H) 0.70 - 1.30 MG/DL 07/09/2024 2:17 AM CDT [facility] CALCIUM S/P/B 8.4(L) 8.5 - 10.1 MG/DL 07/09/2024 2:17 AM CDT [facility] BILIRUBIN TOTAL S/P/B 0.2 0.2 - 1.0 MG/DL 07/09/2024 2:17 AM CDT [facility] ALKALINE PHOSPHATASE S/P/B 46 45 - 115 U/L 07/09/2024 2:17 AM CDT [facility] AST 12(L) 15 - 37 U/L 07/09/2024 2:17 AM CDT [facility] ALT 11(L) 16 - 61 U/L 07/09/2024 2:17 AM CDT [facility] TOTAL PROTEIN S/P/B 8.8(H) 6.4 - 8.2 G/DL 07/09/2024 2:17 AM CDT [facility] ALBUMIN S/P/B 3.3(L) 3.4 - 5.0 G/DL 07/09/2024 2:17 AM CDT [facility] ANION GAP 11.8(H) 2.0 - 10.0 MMOL/L 07/09/2024 2:17 AM CDT [facility] OSMOLALITY (CALC) 329 MOSM/KG 025 2:17 AM T [facility] Comment:REFERENCE RANGE NOT ESTABLISHED GFR ESTIMATE 13(L) >90 ML/MIN/1. 73 M2 07/09/2024 2:17 AM T [facility] GFR NOTES GFR REFERENCE S: 07/09/2024 2:17 AM T [facility] Comment: THE ESTIMATED GFR IS CALCULATED [...] Ricky Jalloh MD LABORATORY Final Res ult [facility] [address] [place] [address], [id number] * (ABNORMAL) THYROXINE, FREE (FT4) (07/09/2024 1:21 AM CDT) FREE T4 1.89(H) 0.76 - 1.46 NG/DL 07/09/2024 2:35 AM CDT [facility] 07/09/2024 1:21 AM CDT Ricky Jalloh MD LABORATORY Final Res ult Performing Organization Address [facility] de Phone Number [facility] [address] [place] [address], [id number] * (ABNORMAL) PHOSPHORUS, INORGANIC PHOSPHATE (07/09/2024 1:21 AM CDT) PHOSPHORUS 8.4(H) 2.5 - 4.9 MG/DL 07/09/2024 2:17 AM CDT [facility] 07/09/2024 1:21 AM CDT Ricky Jalloh MD LABORATORY Final Res ult Performing Organization Address [facility] de Phone Number [facility] [address] [place] [address], [id number] * AMMONIA (07/09/2024 1:21 AM CDT) AMMONIA 16 11 - 32 UMOL/L 07/09/2024 1:57 AM CDT [facility] 07/09/2024 1:21 AM CDT Ricky Jalloh MD LABORATORY Final Res ult Performing Organization Address [facility] Co de Phone Number [facility] [address] [place] [address], [id number] * MAGNESIUM (07/09/2024 1:21 AM CDT) MAGNESIUM 1.6 1.6 - 2.6 MG/DL 07/09/2024 2:17 AM CDT [facility] 07/09/2024 1:21 AM CDT us Ricky Jalloh MD LABORATORY Final Res ult Performing Organization Address [facility] Co de Phone Number [facility] [address] [place] [address], [place] [phone] * KETONES URINE (07/08/2024 9:45 PM CDT) KETONES MG/DL (U) NEGATIVE NEGATIVE 07/08/2024 10:03 PM CDT [facility] URINE SPECIMEN / Unknown 07/08/2024 9:45 PM CDT us Ricky Jalloh MD URINE ORDERABLES Final Re sult Performing Organization Address [facility] de Phone Number [facility] [address] [place] [address], [place] [phone] * SODIUM URINE RANDOM (07/08/2024 9:45 PM CDT) NA RANDOM (U) 91 MMOL/L 07/08/2024 10:18 PM CDT [facility] Comment:REFERENCE RANGE NOT ESTABLISHED URINE SPECIMEN / Unknown 07/08/2024 9:45 PM CDT us Ricky Jalloh MD URINE ORDERABLES Final Re sult Performing Organization Address [facility] Co de Phone Number [facility] [address] [place] [address], [place] [phone] * URINE DRUG SCREEN (TOXICOLOGY) (07/08/2024 9:45 PM CDT) PHENCYCLIDINE PCP (U) NEGATIVE NEGATIVE 07/08/2024 10:17 PM CDT [facility] BENZODIAZEPINES SCREEN (U) NEGATIVE NEGATIVE 07/08/2024 10:17 PM CDT [facility] COCAINE METABOLITES (U) NEGATIVE NEGATIVE 07/08/2024 10:17 PM CDT [facility] AMPHETAMINE (U) NEGATIVE NEGATIVE 10:17 PM CDT [facility] CANNABINOIDS SCREEN (U) NEGATIVE NEGATIVE 07/08/2024 10:17 PM CDT [facility] OPIATE SCREEN (U) NEGATIVE NEGATIVE 025 10:17 PM CDT [facility] BARBITURATES SCREEN (U) NEGATIVE NEGATIVE 07/08/2024 10:17 PM CDT [facility] URINE TOX COMMENT Unconfirmed screening results are to be used only for medical purposes. 07/08/2024 9:47 PM CDT [facility] CUTOFF CONCENTRATION (U) Cut-off Concentration for a positive result 07/08/2024 9:47 PM CDT [facility] Comment: Phencyclidine 25 ng/mL Benzodiazepines 200 ng/mL Cocaine 300 ng/mL Amphetamine 1000 ng/mL Cannabinoids 50 ng/mL Opiates 300 ng/mL Barbiturates 200 ng/mL URINE SPECIMEN / Unknown 07/08/2024 9:45 PM CDT us Ricky Jalloh MD URINE ORDERABLES Final Re sult [facility] [address] [place] [address], [id number] * XR CHEST PORTABLE (07/08/2024 9:35 PM CDT) Anatomical Region Laterality Modality Chest Radiographic Asmantha ging 07/08/2024 9:55 PM CDT Impressions 07/08/2024 [...] 9:55 PM Narrative 07/08/2024 9:57 PM CDT [address] [address] EXAMINATION: XR Portable CXR, 1 View INDICATION: Shortness of breath. COMPARISON: Portable AP chest x-ray 01/13/2019. FINDINGS: Exam is somewhat limited due to patient rotation towards the right. The cardiomediastinal silhouette is within normal limits. Pulmonary vascularity is normal. filer repairer leads overlie the chest and upper abdomen. [...] Procedure Note Daxa Rebollar MD - 07/08/2024 [facility] [address] [place], [place] [address] EXAMINATION: XR Portable CXR, 1 View INDICATION: Shortness of breath. COMPARISON: Portable AP chest x-ray 01/13/2019. FINDINGS: Exam is somewhat limited due to patient rotation towards the right. Thecardiomediastinal silhouette is within normal limits. Pulmonaryvascularity is normal. filer repairer leads overlie the chest and upperabdomen. There [...] 7.32 - 7.42 07/08/2024 9:48 PM CDT [facility] PCO2 VENOUS 42.5 41.0 - 51.0 MMHG 07/08/2024 9:48 PM CDT [facility] PO2 VENOUS 22.7(L) 25.0 - 40.0 MM HG 07/08/2024 9:48 PM CDT [facility] BICARB VENOUS 19.3(L) 24 - 28 MMOL/L 07/08/2024 9:48 PM CDT [facility] TOTAL CO2 VENOUS 20.6(L) 25.0 - 29.0 MMOL/L 07/08/2024 9:48 PM CDT [facility] BASE DEFICIT VENOUS 6.7(H) 0.0 - 3.0 MMOL/L 07/08/2024 9:48 PM CDT [facility] O2 SAT VENOUS 23 <75 % 07/08/2024 9:48 PM CDT [facility] 07/08/2024 9:23 PM CDT Ricky Jalloh MD LABORATORY Final Res ult Performing Organization Address [facility]/ZIP Co de Phone Number [facility] [address] [place] [address], [id number] * LACTIC ACID (07/08/2024 9:23 PM CDT) LACTIC ACID VENOUS 2.0 0.4 - 2.0 MMOL/L 07/08/2024 10:04 PM CDT [facility] 07/08/2024 9:23 PM CDT Ricky Jalloh MD LABORATORY Final Res ult Performing Organization Address [facility] Co de Phone Number [facility] [address] [place] [address], [id number] * CK (CPK) (07/08/2024 9:23 PM CDT) CPK 110 39 - 308 U/L 07/08/2024 11:02 PM CDT [facility] 07/08/2024 9:23 PM CDT Ricky Jalloh MD LABORATORY Final Res ult Performing Organization Address City/[facility]/ZIP Co de Phone Number [facility] [address] [place] [address], [id number] * CULTURE, BACTERIA, BLOOD (07/08/2024 9:22 PM CDT) SPEC DESCRIPTION BLOOD 07/08/2024 9:00 PM CDT [facility] SPECIAL REQUESTS NO SPECIAL REQUEST 07/08/2024 9:00 PM CDT [facility] CULTURE RESULT NO GROWTH 5 DAYS 07/13/2024 10:21 PM CDT [facility] BLOOD SPECIMEN OBTAINED FOR BLOOD CULTURE / Unknown 07/08/2024 9:22 PM CDT 07/08/2024 9:34 PM CDT Ricky Jalloh MD MICROBIOLOGY - GENERAL OR DERABLES Final Result [facility] [address] [place] [address], [id number] * ECG 12 lead (07/08/2024 9:09 PM CDT) 07/08/2024 9:09 PM CDT Narrative [facility] - 07/08/2024 10:11 PM CDT [facility] [address] [place] [address] Test Date: 2024-07-08 Pat Name: [facility] Department: 1 Room: [facility] Gender: 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: Vahid : 1960 Requested By: RICKY JALLOH Order Number: [id number] Reading MD: Abram Clay Measurements Intervals [place] Rate: 84 P: -12 NV: 166 QRS: 42 QRSD: 120 T: 64 QT: 357 QTc: 423 Interpretive Statements SINUS RHYTHM MODERATE INTRAVENTRICULAR CONDUCTION DELAY [110+ ms QRS DURATION] MINIMAL ST DEPRESSION [0.025+ mV ST DEPRESSION] Procedure Note Abram Clay MD - 07/08/2024 [facility] [address] [place] [address] Test Date: 2024-07-08 Pat Name: [facility] Department: 1 Room: [facility] Gender: 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: Vahid : 1960 Requested By: RICKY JALLOH Order Number: [id number] Reading MD: Abram Clay Measurements Intervals [place] Rate: 84 P: -12 NV: 166 QRS: 42 QRSD: 120 T: 64 QT: 357 QTc: 423 Interpretive Statements SINUS RHYTHM MODERATE INTRAVENTRICULAR CONDUCTION DELAY [110+ ms QRS DURATION] MINIMAL ST DEPRESSION [0.025+ mV ST DEPRESSION] us Ricky Jalloh MD ECG ORDERABLES Final Res ult [facility] * LIPID PANEL (08/12/2012 12:00 AM [...] TO EPIC CONVERSION - 01/16/2013 10:01 AM LEAD ELECTRICAL CONTROLS ENGINEER Reviewed by JR Jan 16 2013 10:01:00:000AM us Generic Conversion Md [facility] Final R esult MEDINFORMATIX TO EPIC CONVERSION from Last 3 Months or Most Recently Relevant to Health Maintenance Insurance MEDICAID [facility] Advance Directives Documents on File Type Date Recorded Patient Car Checker Expl anation Advance Directives and Living Will 07/20/2024 12:06 PM 01/05/2024 POLST * DNR (Latest Code Status on File) Date Activated Date Inactivated Comments 07/08/2024 10:50 PM 07/17/2024 3:49 PM * Full Code Date Activated Date Inactivated Comments 07/08/2024 8:57 PM 07/08/2024 10:50 PM Care Teams Management Aide Relationship Specialty Start Date End Date Kole Sapp DO [address] [place] [address] PCP - General FAMILY PRACTICE 07/11/24 Sadiq Brooks MD CARDIOVASCULAR DISEASE 02/05/17
--- NOTE | 2024-10-06 11:07 | ECG_ITS ---
Test Date: 2024-10-06 11:14:56 Measurements Intervals [place] Rate: 74 P: -27 OR: 136 QRS: 54 QRSD: 107 T: 70 QT: 377 QTc: 419 Interpretive Statements SINUS RHYTHM BASELINE ARTIFACT- I, II, III, AVF NORMAL ECG Compared to ECG 07/08/2024 14:07:51 No significant changes Electronically Signed On 10-06-2024 11:37:51 CDT by Asher Vee D.O.
[2024-10-06 12:08] LABS: Alanine Aminotransferase 28 U/L (6-50); Albumin Level 4.1 g/dL (3.5-5.1); Alkaline Phosphatase 99 U/L (38-126); Anion Gap 11 mmol/L (4-12); Aspartate Amino Transferase 22 U/L (17-59); Bilirubin,Total 0.4 mg/dL (0.2-1.3); Blood Urea Nitrogen 15 mg/dL (9-20); Calcium 9.3 mg/dL (8.4-10.2); Carbon Dioxide 28 mmol/L (22-30); Chloride 92 mmol/L (98-107); Estimated Glomerular Filt Rate > 60; Glucose 123 mg/dL (65-110); Osmolality Calculated 273 mOsm/kg (285-295); Potassium 4.8 mmol/L (3.4-5.0); Sodium 131 mmol/L (137-145); Total Protein 7.6 g/dL (6.3-8.2)
== END 2024-10-06 10:51 | disposition home or self-care (01) ==
PROVIDERS: PCP Family Medicine; Visit Provider Family Medicine
DX: M10.9 Gout, unspecified (principal); I50.9 Heart failure, unspecified; R94.31 Abnormal electrocardiogram [ECG] [EKG]
CPT/HCPCS: 36415; 80053; 93005

== ENCOUNTER 2024-10-11 09:43 | Outpatient (CLI) | payer OTHER, SELFPAY ==
[2024-10-11 11:02] LABS: Alanine Aminotransferase 19 U/L (6-50); Albumin Level 4.2 g/dL (3.5-5.1); Alkaline Phosphatase 93 U/L (38-126); Anion Gap 10 mmol/L (4-12); Aspartate Amino Transferase 21 U/L (17-59); Bilirubin,Total 0.4 mg/dL (0.2-1.3); Blood Urea Nitrogen 15 mg/dL (9-20); Calcium 9.4 mg/dL (8.4-10.2); Carbon Dioxide 28 mmol/L (22-30); Chloride 86 mmol/L (98-107); Estimated Glomerular Filt Rate > 60; Glucose 88 mg/dL (65-110); Osmolality Calculated 257 mOsm/kg (285-295); Potassium 4.4 mmol/L (3.4-5.0); Sodium 124 mmol/L (137-145); Total Protein 7.7 g/dL (6.3-8.2)
== END 2024-10-11 09:44 | disposition home or self-care (01) ==
PROVIDERS: PCP Family Medicine; Visit Provider Family Medicine
DX: I50.9 Heart failure, unspecified (principal)
CPT/HCPCS: 36415; 80053

== ENCOUNTER 2024-10-23 07:59 | Outpatient (CLI) | payer OTHER, SELFPAY ==
--- OUTSIDE RECORDS SUMMARY | 2024-10-23 08:13 | XMS_ITS | Clinical Summary ---
Author Organization [facility] Address [address] [place] [address] Care Team Providers Care Attic Fans Mechanic Name Role Phone Sadiq Brooks MD Unavailable Kole Sapp DO Primary Care Provider [phone] Allergies No known active allergies Medications tamsulosin [...] acidosis 07/08/2024 Coronary artery disease invo lving ione coronary artery of ione heart without angina pectoris 03/17/2017 Morbid obesity with BMI of 40.0-44.9, adult 02/17 Carotid artery disease 03/02/2017 Pain in both lower extremities 03/02/2017 Smoker 03/02/2017 Essential hypertension 03/02/2017 Hyperlipidemia, unspecified hyperlipidemia type 03/02/2017 Family History Medical History Relation Comments Stroke [...] drink = 0.6 oz pur e alcohol) [facility] Utilities Answer Date Recorded In the past 12 months has e [email or web address], gas, oil, or water [employer] threatened to shut off services in your [...] any time in the past 12 m [facility], were you homeless or living in a correction (including now)? 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 worked at [employer] Not on file Not on file Not [...] Procedure Name Priority Date/Time Associated Diagnosis Comments LIPID PANEL Routine 08/12/2012 12:00 AM CDT from Last 3 Months or Most Recently Relevant to Health Maintenance Results * LIPID PANEL (08/12/2012 12:00 AM CDT) [...] TO EPIC CONVERSION - 01/16/2013 10:01 AM LIVESTOCK NUTRITIONIST Reviewed by JR Ferraro 2 2013 10:01:00:000AM us Generic Conversion Md [facility] Final R esult MEDINFORMATIX TO EPIC CONVERSION from Last 3 Months or Most Recently Relevant to Health Maintenance Insurance MEDICAID [employer] Advance Directives Documents on File Type Date Recorded Patient Dials Inspector Expl anation Advance Directives and Living Will 07/20/2024 12:06 PM 01/05/2024 POLST * DNR (Latest Code Status on File) Date Activated Date Inactivated Comments 07/08/2024 10:50 PM 07/17/2024 3:49 PM * Full Code Date Activated Date Inactivated Comments 07/08/2024 8:57 PM 07/08/2024 10:50 PM Care Teams Attic Fans Mechanic Relationship Specialty Start Date End Date Kole Sapp DO [address] [place] [address] PCP - General FAMILY PRACTICE 07/11/24 Sadiq Brooks MD CARDIOVASCULAR DISEASE 02/05/17
--- OUTSIDE RECORDS SUMMARY | 2024-10-23 08:13 | XMS_ITS | Encounter Summary ---
Author Organization [facility] Address [address] [place] [address] Care Team Providers Care Table Saw Operator Name Role Phone Dilia Hernandez MD Primary Care Provider [phone] Sadiq Brooks MD Unavailable Gaetano Steward MD Unavailable [phone] Dilia Hernandez MD Primary Care Provider [phone] Kole Sapp DO Primary Care Provider [phone] Encounter Details Date Type Department Care Team (Late st Contact Info) Description 07/23/2018 Abstract [facility] CONVERSION [address] [place] [address] , Generic ConversionMD Social History Tobacco [...] on file Not on file worked at [employer] Not on file Not on file Not on file now disabled since 2005 Not on file Not on file Not on file documented as of this encounter Plan of Treatment Not on file documented as of this encounter Visit Diagnoses Not on filedocumented in this encounter Care Teams Table Saw Operator Relationship Specialty Start Date End Date Dilia Hernandez MD [address] [place] [address] PCP - General FAMILY PRACTICE 12/12/15 01/12/19 Dilia Hernandez MD [address] [place] [address] PCP - General FAMILY PRACTICE 01/13/19 07/10/24 Kole Sapp DO [address] [place] [address] PCP - General FAMILY PRACTICE 07/11/24 Sadiq Brooks MD [address] [place] [address] CARDIOVASCULAR DISEASE 02/05/17 aGetano Steward MD [address] [place] [address] [employer] Operations Supervisor CARDIOVASCULAR DISEASE 02/02/18 07/26/24 documented as of this encounter
--- OUTSIDE RECORDS SUMMARY | 2024-10-23 08:13 | XMS_ITS | Encounter Summary ---
Author Organization [facility] Address [address] [place] [address] Care Team Providers Care Volunteer Services Director Name Role Phone Rosa Isela Sanchez NP Unavailable [phone] Miguel Angel Cochran MD Unavailable [phone] Dilia Hernandez MD Primary Care Provider [phone] Sadiq Brooks MD Unavailable Gaetano Steward MD Unavailable [phone] Dilia Hernandez MD Primary Care Provider [phone] Kole Sapp DO Primary Care Provider [phone] Encounter Details Date Type Department Care Team (Late st Contact Info) Description 01/18/2013 Abstract [facility] AT [address] [place] [address] Miguel Angel Cochran MD [address] [place] [address], [address] [place] [address] Social History Tobacco Use Types [...] on file Not on file worked at [employer] Not on file Not on file Not on file now disabled since 2005 Not on file Not on file Not on file documented as of this encounter Plan of Treatment Not on file documented as of this encounter Visit Diagnoses Not on filedocumented in this encounter Care Teams Volunteer Services Director Relationship Specialty Start Date End Date Dilia Hernandez MD [address] [place] [address] PCP - General FAMILY PRACTICE 12/12/15 01/12/19 Dilia Hernandez MD [address] [place] [address] PCP - [facility] PRACTICE 01/13/19 07/10/24 Kole Sapp DO [address] [place] [address] PCP - General FAMILY PRACTICE 07/11/24 Rosa Isela Sanchez NP [address] [facility] [address] [place] [address] NURSE PRACTITIONER 12/12/15 02/01/18 Miguel Angel Cochran MD [address] [place] [address] [place] Director Drug CARDIOVASCULAR DISEASE 12/12/15 02/01/18 Sadiq Brooks MD [address] [place] [address] CARDIOVASCULAR DISEASE 02/05/17 Gaetano Steward MD [address] [place] [address] [place] Director Drug CARDIOVASCULAR DISEASE 02/02/18 07/26/24 documented as of this encounter
[2024-10-23 08:52] LABS: Alanine Aminotransferase 27 U/L (6-50); Albumin Level 4.2 g/dL (3.5-5.1); Alkaline Phosphatase 98 U/L (38-126); Anion Gap 9 mmol/L (4-12); Aspartate Amino Transferase 25 U/L (17-59); Bilirubin,Total 0.6 mg/dL (0.2-1.3); Blood Urea Nitrogen 14 mg/dL (9-20); Calcium 9.6 mg/dL (8.4-10.2); Carbon Dioxide 31 mmol/L (22-30); Chloride 87 mmol/L (98-107); Estimated Glomerular Filt Rate > 60; Glucose 89 mg/dL (65-110); Osmolality Calculated 263 mOsm/kg (285-295); Potassium 4.8 mmol/L (3.4-5.0); Sodium 127 mmol/L (137-145); Total Protein 7.7 g/dL (6.3-8.2)
== END 2024-10-23 08:00 | disposition home or self-care (01) ==
LOC: CHSLAB 08:00
PROVIDERS: PCP Family Medicine; Visit Provider Family Medicine
DX: E87.1 Hypo-osmolality and hyponatremia (principal)
CPT/HCPCS: 36415; 80053

== ENCOUNTER 2024-11-16 09:12 | Outpatient (CLI) | payer OTHER, SELFPAY ==
[2024-11-16 09:24] LABS: Hematocrit 41.2 % (37.0-46.0); Hemoglobin 13.0 g/dL (12.4-15.3); Immature Granulocyte Percent A 0.6 % (0.0-0.0); Lymphocytes Absolute Auto 1.42 K/mm3 (1.10-4.50); Mean Corpuscular HGB Conc 31.6 g/dL (32-36); Mean Corpuscular Hemoglobin 25.8 pg (27.0-31.0); Mean Corpuscular Volume 81.9 fL (78.0-102.0); Nucleated Red Blood Cells Absolute Auto 0.00 K/mm3 (0.00-0.00); Nucleated Red Blood Cells Perc 0.0 % (0-0.0); Platelet Count Result 178 K/mm3 (150-420); Red Blood Count 5.03 M/mm3 (4.70-6.10); White Blood Count 6.2 K/mm3 (4.8-10.8)
--- OUTSIDE RECORDS SUMMARY | 2024-11-16 09:36 | XMS_ITS | Clinical Summary ---
Author Organization [facility] Address [address] [place] [address] Care Team Providers Care Supervisor Loading Name Role Phone Sadiq Brooks MD Unavailable Kole Sapp DO Primary Care Provider [phone] Allergies No known active allergies Medications tamsulosin [...] mg total) by mouth daily. Take while Agona in place for bladder spasm 30 tablet 5 Active Active Problems Problem Noted Date Diagnosed Date Metabolic acidosis 07/08/2024 Coronary artery disease invo lving [place] coronary artery of [place] heart without angina pectoris 03/17/2017 Morbid obesity [...] drink = 0.6 oz pur e alcohol) [facility] Utilities Answer Date Recorded In the past 12 months has e [employer], gas, oil, or water [employer] threatened to shut off services in your [...] any time in the past 12 m [facility], were you homeless or living in a snf (including now)? 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 worked at [employer] Not on file Not on file Not [...] 7:37 AM CDT Oxygen Saturation 96% 07/17/2024 7: 37 AM CDT Inhaled Oxygen Concentration - - [...] COVID-19 Vaccine (1 - 2023-2 5 season) 2024 Meningococcal B Vaccine Aged Out No l [...] TO EPIC CONVERSION - 01/16/2013 10:01 AM WELDER PRODUCTION LINE GAS Reviewed by JR Ferraro 2 2013 10:01:00:000AM us Generic Conversion Md [facility] Final R esult MEDINFORMATIX TO EPIC CONVERSION from Last 3 Months or Most Recently Relevant to Health Maintenance Insurance MEDICAID Member Subscriber Plan / Payer (Ef fective 2017-Present) Name:Martin Lopez Sr. Relation to Subscriber:Self Name:Martin Lopez Sr. Payer ID:Not on file Group ID:Not on file Type:Not on file Address: [place] [address] [place] [address] MEDICAID Advance Directives Documents on File Type Date Recorded Patient Community Affairs Manager Expl anation Advance Directives and Living Will 07/20/2024 12:06 PM 01/05/2024 POLST * DNR (Latest Code Status on File) Date Activated Date Inactivated Comments 07/08/2024 10:50 PM 07/17/2024 3:49 PM * Full Code Date Activated Date Inactivated Comments 07/08/2024 8:57 PM 07/08/2024 10:50 PM Care Teams Supervisor Loading Relationship Specialty Start Date End Date Kole Sapp DO [address] [place] [id number] PCP - General FAMILY PRACTICE 07/11/24 Sadiq Brooks MD CARDIOVASCULAR DISEASE 02/05/17
--- OUTSIDE RECORDS SUMMARY | 2024-11-16 09:36 | XMS_ITS | Encounter Summary ---
Author Organization [facility] Address [address] [place] [address] Care Team Providers Care Insurance Agent Name Role Phone Dilia Hernandez MD Primary Care Provider [phone] Sadiq Brooks MD Unavailable Gaetano Steward MD Unavailable [phone] Dilia Hernandez MD Primary Care Provider [phone] Kole Sapp DO Primary Care Provider [phone] Encounter Details Date Type Department Care Team (Late st Contact Info) Description 07/23/2018 Abstract SFL CONVERSION [address] [place] [address] , Generic ConversionMD Social History Tobacco [...] on file Not on file worked at [employer] Not on file Not on file Not on file now disabled since 2005 Not on file Not on file Not on file documented as of this encounter Plan of Treatment Not on file documented as of this encounter Visit Diagnoses Not on filedocumented in this encounter Care Teams Insurance Agent Relationship Specialty Start Date End Date Dilia Hernandez MD [address] [place] [address] PCP - General FAMILY PRACTICE 12/12/15 01/12/19 Dilia Hernandez MD [address] [place] [address] PCP - General FAMILY PRACTICE 01/13/19 07/10/24 Kole Sapp DO [address] [place] [address] PCP - General FAMILY PRACTICE 07/11/24 Sadiq Brooks MD [address] [place] [address] CARDIOVASCULAR DISEASE 02/05/17 Gaetano Steward MD [address] [place] [address] [place] Warp Spinner CARDIOVASCULAR DISEASE 02/02/18 07/26/24 documented as of this encounter
--- OUTSIDE RECORDS SUMMARY | 2024-11-16 09:36 | XMS_ITS | Encounter Summary ---
Author Organization [facility] Address [address] [place] [address] Care Team Providers Care Metal Window Screen Assembler Name Role Phone Rosa Isela Sanchez NP Unavailable [phone] Miguel Angel Cochran MD Unavailable [phone] Dilia Hernandez MD Primary Care Provider [phone] Sadiq Brooks MD Unavailable Gaetano Steward MD Unavailable [phone] Dilia Hernandez MD Primary Care Provider [phone] Kole Sapp DO Primary Care Provider [phone] Encounter Details Date Type Department Care Team (Late st Contact Info) Description 01/18/2013 Abstract [facility] AT [address] [place] [address] Miguel Angel Cochran MD [address] [place] [address], [address] [place] [address] Social History Tobacco Use Types [...] on file Not on file worked at [employer] Not on file Not on file Not on file now disabled since 2005 Not on file Not on file Not on file documented as of this encounter Plan of Treatment Not on file documented as of this encounter Visit Diagnoses Not on filedocumented in this encounter Care Teams Metal Window Screen Assembler Relationship Specialty Start Date End Date Dilia Hernandez MD [address] [place] [address] PCP - General FAMILY PRACTICE 12/12/15 01/12/19 Dilia Hernandez MD [address] [place] [address] PCP - [facility] PRACTICE 01/13/19 07/10/24 Kole Sapp DO [address] [place] [address] PCP - General FAMILY PRACTICE 07/11/24 Rosa Isela Sanchez NP [address] [facility] [address] [place] [address] NURSE PRACTITIONER 12/12/15 02/01/18 Miguel Angel Cochran MD [address] [place] [address] [employer] Transportation Maintenance Specialist CARDIOVASCULAR DISEASE 12/12/15 02/01/18 Sadiq Brooks MD [address] [place] [address] CARDIOVASCULAR DISEASE 02/05/17 Gaetano Steward MD [address] [place] [address] [employer] Maintenance Specialist CARDIOVASCULAR DISEASE 02/02/18 07/26/24 documented as of this encounter
[2024-11-16 10:13] LABS: Alanine Aminotransferase 24 U/L (6-50); Albumin Level 4.4 g/dL (3.5-5.1); Alkaline Phosphatase 108 U/L (38-126); Anion Gap 11 mmol/L (4-12); Aspartate Amino Transferase 26 U/L (17-59); Bilirubin,Total 0.6 mg/dL (0.2-1.3); Blood Urea Nitrogen 15 mg/dL (9-20); Calcium 9.5 mg/dL (8.4-10.2); Carbon Dioxide 31 mmol/L (22-30); Chloride 88 mmol/L (98-107); Estimated Glomerular Filt Rate > 60; Glucose 101 mg/dL (65-110); Osmolality Calculated 270 mOsm/kg (285-295); Potassium 4.4 mmol/L (3.4-5.0); Sodium 130 mmol/L (137-145); Total Protein 9.3 g/dL (6.3-8.2)
== END 2024-11-16 09:13 | disposition home or self-care (01) ==
LOC: CHSLAB 09:13
PROVIDERS: PCP Family Medicine; Visit Provider Family Medicine
DX: E87.1 Hypo-osmolality and hyponatremia (principal)
CPT/HCPCS: 36415; 80053; 85025

== ENCOUNTER 2024-12-14 09:27 | Emergency (ER) | payer OTHER, SELFPAY ==
[2024-12-14 09:31] VITALS: BP 155/58; PULSE 79; RESP 20; TEMP 36.8; O2SAT 95
--- NOTE | 2024-12-14 09:32 | ED.MALEGU ---
HPI - Male Genitourinary General Chief complaint: Urogenital-Male Stated complaint: cook replacement Time Seen by Provider: 12/14/24 09:28 Source: patient Mode of arrival: ambulatory Limitations: no limitations History of Present Illness HPI Narrative: This is a 64-year-old male that has a indwelling catheter here today to have it exchanged otherwise no symptoms no abdominal pain no flank pain no fever chills no diarrhea constipation no nausea vomiting no chest pain or shortness of breath. Duration: constant Related Data Home Medications ?Medication ?Instructions ?Recorded ?Confirmed ?Last Taken ?Type aspirin 81 mg tablet,delayed 81 mg PO DAILY 01/05/24 11/16/24 Unknown History release ferrous sulfate 325 mg (65 mg 325 mg PO DAILY 07/20/24 11/16/24 Unknown History iron) tablet Allergies Allergy/AdvReac Type Severity Reaction Status Date / Time No Known Allergies Allergy Verified 11/16/24 08:48 Review of Systems Review of Systems: All systems reviewed & are unremarkable except as noted in HPI and below PMFSH Past Medical History Medical History Emphysema lung BPH (benign prostatic hyperplasia) HLD (hyperlipidemia) Family History Family History Father Diabetes mellitus Mother Diabetes mellitus Other Heart disease Social History Social History Smoking status: Former smoker Alcohol intake: former Substance use: never Do You Feel Safe in your Home?: Yes Lack of Transportation: No Lack of Food: Never True Gender identity (if verbalized by the patient): Male Sexual Orientation (if Verbalized by the Patient): Straight or Heterosexual Exam Const: General: healthy appearing and no acute distress Nutritional Appearance: well nourished and obese Limitations: no limitations Chest: Chest palpation & inspection: normal inspection of the chest Resp: Effort & Inspection: normal respiratory effort Auscultation: clear to auscultation bilaterally Cardio: Rate: regular rate Rhythm: regular rhythm GI: GI Palp: Yes Soft to palpation Auscultation: normal bowel sounds : General: Yes bladder normal to palpation Urinary Catheter: Urinary Catheter: patent and draining and urine clear Back/Spine/Pelvis: Back: no CVA tenderness Extrem: General: normal to inspection, no clubbing, cyanosis or edema and no pedal edema Course Course Emergency Course: Medical decision making narrative: The patient was evaluated by myself in the emergency department. History obtained from patient was an independent historian physical exam performed of witnessed by nurse. External medical records were received reviewed reviewed at this time. Cook catheter was exchanged patient tolerated procedure well. Repeat assessment patient doing well on repeat exam with no acute distress Symptoms have improved since arrival to the emergency department Repeat vital stable Patient agrees with this question after shared medical decision making and agrees with discharge All questions answered to the patient's satisfaction Patient advised to follow with his primary/urologist within the next week for further evaluation and treatment. Critical Care Time Critical Care Time Critical Care Time: No Discharge Plan Discharge Clinical Impression: Catheter (urine) change required Patient Disposition: Home Condition: Stable Instructions: Antibiotic Form, Cook Catheter Placement and Care (ED) Additional Instructions: Advised follow-up with primary/urologist for further evaluation and treatment. Patient Language: Croatian Prescriptions: No Action ferrous sulfate 325 mg (65 mg iron) tablet 325 mg PO DAILY aspirin 81 mg tablet,delayed release (DR/EC) 81 mg PO DAILY albuterol sulfate 90 mcg/actuation HFA aerosol inhaler 1 inh inhalation Q4H Qty: 8.5 0RF allopurinol 300 mg tablet 300 mg PO DAILY Qty: 30 0RF atorvastatin 20 mg tablet See Rx Instructions .ROUTE .COMPLEX Qty: 90 0RF Dose Instruction: TAKE 1 (ONE) TABLET AT BEDTIME FOR CHOLESTEROL Rx Instructions: TAKE 1 (ONE) TABLET AT BEDTIME FOR CHOLESTEROL Breztri Aerosphere 160-9-4.8 mcg/actuation HFA aerosol inhaler 2 inh inhalation BID Qty: 10.7 10RF levothyroxine 150 mcg tablet See Rx Instructions .ROUTE .COMPLEX Qty: 30 0RF Dose Instruction: TAKE ONE TABLET BY MOUTH DAILY Rx Instructions: TAKE ONE TABLET BY MOUTH DAILY omeprazole 20 mg capsule,delayed release(DR/EC) See Rx Instructions .ROUTE .COMPLEX Qty: 90 1RF Dose Instruction: TAKE ONE CAPSULE BY MOUTH DAILY ON EMPTY STOMACH Rx Instructions: TAKE ONE CAPSULE BY MOUTH DAILY ON EMPTY STOMACH sodium chloride 1,000 mg tablet,soluble 1,000 mg PO DAILY Qty: 90 0RF tamsulosin 0.4 mg capsule See Rx Instructions .ROUTE .COMPLEX Qty: 90 0RF Dose Instruction: TAKE ONE CAPSULE BY MOUTH DAILY FOR PROSTATE Rx Instructions: TAKE ONE CAPSULE BY MOUTH DAILY FOR PROSTATE solifenacin 5 mg tablet See Rx Instructions .ROUTE .COMPLEX Qty: 30 1RF Dose Instruction: TAKE ONE TABLET BY MOUTH DAILY Rx Instructions: TAKE ONE TABLET BY MOUTH DAILY Follow-up/Referrals: Kole Sapp DO [Primary Care Provider, [facility]] Time of Disposition: 09:36
[2024-12-14 09:51] LABS: Add Urine Microscopic? YES; Appearance Urine Clear (Clear); Glucose Urine UA Negative (Negative); Leukocyte Esterase Ur 2+ LEU/UL (Negative); Nitrate Urine Negative (Negative); Specific Grav Ur 1.020 (1.010-1.020)
--- NOTE | 2024-12-14 10:31 | PC.NURSE ---
1021 noted urine in cook gravity bag at discharge.
--- OUTSIDE RECORDS SUMMARY | 2024-12-14 10:38 | XMS_ITS | Encounter Summary ---
Author Organization [facility] Address [address] [place] [address] Care Team Providers Care Plastic Surgery Technician Name Role Phone Rosa Isela Sanchez NP Unavailable [phone] Miguel Angel Cochran MD Unavailable [phone] Dilia Hernandez MD Primary Care Provider [phone] Sadiq Brooks MD Unavailable Gaetano Steward MD Unavailable [phone] Dilia Hernandez MD Primary Care Provider [phone] Kole Sapp DO Primary Care Provider [phone] Encounter Details Date Type Department Care Team (Late st Contact Info) Description 01/18/2013 Abstract [facility] AT [address] [place] [address] Miguel Angel Cochran MD [address] [place] [address], [address] [place] [address] Social History Tobacco Use Types [...] on file Not on file worked at [employer] Not on file Not on file Not on file now disabled since 2005 Not on file Not on file Not on file documented as of this encounter Plan of Treatment Not on file documented as of this encounter Visit Diagnoses Not on filedocumented in this encounter Care Teams Plastic Surgery Technician Relationship Specialty Start Date End Date Dilia Hernandez MD [address] [place] [address] PCP - General FAMILY PRACTICE 12/12/15 01/12/19 Dilia Hernandez MD [address] [place] [address] PCP - [facility] PRACTICE 01/13/19 07/10/24 Kole Sapp DO [address] [place] [address] PCP - General FAMILY PRACTICE 07/11/24 Rosa Isela Sanchez NP [address] [facility] [address] [place] [address] NURSE PRACTITIONER 12/12/15 02/01/18 Miguel Angel Cochran MD [address] [place] [address] [place] [facility] CARDIOVASCULAR DISEASE 12/12/15 02/01/18 Sadiq Brooks MD [address] [place] [address] CARDIOVASCULAR DISEASE 02/05/17 Gaetano Steward MD [address] [place] [address] [place] [facility] CARDIOVASCULAR DISEASE 02/02/18 07/26/24 documented as of this encounter
--- OUTSIDE RECORDS SUMMARY | 2024-12-14 10:38 | XMS_ITS | Clinical Summary ---
Author Organization [facility] Address [address] [place] [address] Care Team Providers Care Retort Loader Name Role Phone Sadiq Brooks MD Unavailable Kole Sapp DO Primary Care Provider [phone] Allergies No known active allergies Medications tamsulosin [...] acidosis 07/08/2024 Coronary artery disease invo lving [place] coronary artery of [place] heart without angina pectoris 03/17/2017 Morbid obesity [...] drink = 0.6 oz pur e alcohol) [facility] Utilities Answer Date Recorded In the past 12 months has e [employer], gas, oil, or water [employer] threatened to shut off services in your [...] time in the past 12 m [facility], were you homeless or living in [...] on file Not on file worked at [employer] Not on file Not on file Not [...] Wellness Visit 2023 COVID-19 Vaccine (1 - 2024-2 6 season) 2024 Influenza Adult (#1) 2024 Hepatitis A Vaccines Aged Out No long er eligible based on patient's age to complete this topic Meningococcal B Vaccine Aged Out No l [...] TO EPIC CONVERSION - 01/16/2013 10:01 AM SUPERVISOR ESTIMATOR AND DRAFTER Reviewed by JR Jan 16 2013 10:01:00:000AM us Generic Conversion Md [facility] Final R esult [employer] TO EPIC CONVERSION from Last 3 Months or Most Recently Relevant to Health Maintenance Insurance MEDICAID Member Subscriber Plan / Payer (Ef fective 2017-Present) Name:Martin Lopez Sr. Relation to Subscriber:Self Name:Martin Lopez Sr. Payer ID:Not on file Group ID:Not on file Type:Not on file Address: [place] [id number] MEDICAID [place] [id number] Advance Directives Documents on File Type Date Recorded Patient Contract Design Agent Expl anation Advance Directives and Living Will 07/20/2024 12:06 PM 01/05/2024 POLST * DNR (Latest Code Status on File) Date Activated Date Inactivated Comments 07/08/2024 10:50 PM 07/17/2024 3:49 PM * Full Code Date Activated Date Inactivated Comments 07/08/2024 8:57 PM 07/08/2024 10:50 PM Care Teams Retort Loader Relationship Specialty Start Date End Date Kole Sapp DO [address] [place] [address] PCP - General FAMILY PRACTICE 07/11/24 Sadiq Brooks MD CARDIOVASCULAR DISEASE 02/05/17
--- OUTSIDE RECORDS SUMMARY | 2024-12-14 10:38 | XMS_ITS | Encounter Summary ---
Author Organization [facility] Address [address] [place] [address] Care Team Providers Care Stator Connector Name Role Phone Dilia Hernandez MD Primary Care Provider [phone] Sadiq Brooks MD Unavailable Gaetano Steward MD Unavailable [phone] Dilia Hernandez MD Primary Care Provider [phone] Kole Sapp DO Primary Care Provider [phone] Encounter Details Date Type Department Care Team (Late st Contact Info) Description 07/23/2018 Abstract [facility] [address] [place] [address] , Generic ConversionMD Social History Tobacco [...] on file Not on file worked at [employer] Not on file Not on file Not on file now disabled since 2005 Not on file Not on file Not on file documented as of this encounter Plan of Treatment Not on file documented as of this encounter Visit Diagnoses Not on filedocumented in this encounter Care Teams Stator Connector Relationship Specialty Start Date End Date Dilia Hernandez MD [address] [place] [address] PCP - General FAMILY PRACTICE 12/12/15 01/12/19 Dilia Hernandez MD [address] [place] [address] PCP - General FAMILY PRACTICE 01/13/19 07/10/24 Kole Sapp DO [address] [place] [address] PCP - General FAMILY PRACTICE 07/11/24 Sadiq Brooks MD [address] [place] [address] CARDIOVASCULAR DISEASE 02/05/17 Gaetano Steward MD [address] [place] [address] Baltic Multimedia Technician CARDIOVASCULAR DISEASE 02/02/18 07/26/24 documented as of this encounter
--- NOTE | 2024-12-16 16:48 | PC.NURSE ---
preliminary urine culture reviewed. growth observed. further testing in progress
== END 2024-12-14 10:21 | disposition home or self-care (01) ==
PROVIDERS: Emergency Provider Emergency Medicine; PCP Family Medicine
DX: Z46.6 Encounter for fitting and adjustment of urinary device (principal); J43.9 Emphysema, unspecified; E78.5 Hyperlipidemia, unspecified; Z87.891 Personal history of nicotine dependence
CPT/HCPCS: 51702; 81001; 87077; 87086; 87186; 99283

== ENCOUNTER 2024-12-14 17:27 | Emergency (ER) | payer OTHER, SELFPAY ==
[2024-12-14 17:27] VITALS: BP 193/99; PULSE 84; RESP 22; TEMP 36.4; O2SAT 97
--- OUTSIDE RECORDS SUMMARY | 2024-12-14 17:49 | XMS_ITS | Encounter Summary ---
Author Organization [facility] Address [address] [place] [address] Care Team Providers Care Adult Educator Name Role Phone Rosa Isela Sanchez NP Unavailable [phone] Miguel Angel Cochran MD Unavailable [phone] Dilia Hernandez MD Primary Care Provider [phone] Sadiq Brooks MD Unavailable Gaetano Steward MD Unavailable [phone] Dilia Hernandez MD Primary Care Provider [phone] Kole Sapp DO Primary Care Provider [phone] Encounter Details Date Type Department Care Team (Late st Contact Info) Description 01/18/2013 Abstract [facility] AT [address] [place] [address] Miguel Angel Cochran MD [address] [place] [address], [address] [place] [address] Social History Tobacco Use Types [...] on file Not on file worked at [employer] Not on file Not on file Not on file now disabled since 2005 Not on file Not on file Not on file documented as of this encounter Plan of Treatment Not on file documented as of this encounter Visit Diagnoses Not on filedocumented in this encounter Care Teams Adult Educator Relationship Specialty Start Date End Date Dilia Hernandez MD [address] [place] [address] PCP - General FAMILY PRACTICE 12/12/15 01/12/19 Dilia Hernandez MD [address] [place] [address] PCP - [facility] PRACTICE 01/13/19 07/10/24 Kole Sapp DO [address] [place] [address] PCP - General FAMILY PRACTICE 07/11/24 Rosa Isela Sanchez NP [address] [facility] [address] [place] [address] NURSE PRACTITIONER 12/12/15 02/01/18 Miguel Angel Cochran MD [address] [place] [address] [employer] Industrial Spraypainter CARDIOVASCULAR DISEASE 12/12/15 02/01/18 Sadiq Brooks MD [address] [place] [address] CARDIOVASCULAR DISEASE 02/05/17 Gaetano Steward MD [address] [place] [address] [employer] Spraypainter CARDIOVASCULAR DISEASE 02/02/18 07/26/24 documented as of this encounter
--- OUTSIDE RECORDS SUMMARY | 2024-12-14 17:49 | XMS_ITS | Clinical Summary ---
Author Organization [facility] Address [address] [place] [address] Care Team Providers Care Religious Activities Director Name Role Phone aSdiq Brooks MD Unavailable Kole Sapp DO Primary Care Provider [phone] Allergies No known active allergies Medications tamsulosin [...] acidosis 07/08/2024 Coronary artery disease invo lving [place] coronary artery of [place] heart without angina pectoris 03/17/2017 Morbid obesity [...] drink = 0.6 oz pur e alcohol) [facility] Utilities Answer Date Recorded In the past 12 months has e [employer], gas, oil, or water [employer] threatened to shut off services in your [...] any time in the past 12 m [facility], were you homeless or living in a alf (including now)? 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 Relation to Subscriber:Self Name:Martin Lopez Sr. 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
--- OUTSIDE RECORDS SUMMARY | 2024-12-14 17:49 | XMS_ITS | Encounter Summary ---
Author Organization [facility] Address [address] [place] [address] Care Team Providers Care Engineering Design Supervisor Name Role Phone Dilia Hernandez MD Primary Care Provider [phone] Sadiq Brooks MD Unavailable Gaetano Steward MD Unavailable [phone] Dilia Hernandez MD Primary Care Provider [phone] Kole Sapp DO Primary Care Provider [phone] Encounter Details Date Type Department Care Team (Late st Contact Info) Description 07/23/2018 Abstract [facility]VERSION [address] [place] [address] , Generic ConversionMD Social History Tobacco [...] on file Not on file worked at [employer] Not on file Not on file Not on file now disabled since 2005 Not on file Not on file Not on file documented as of this encounter Plan of Treatment Not on file documented as of this encounter Visit Diagnoses Not on filedocumented in this encounter Care Teams Engineering Design Supervisor Relationship Specialty Start Date End Date Dilia Hernandez MD [address] [place] [address] PCP - General FAMILY PRACTICE 12/12/15 01/12/19 Dilia Hernandez MD [address] [place] [address] PCP - General FAMILY PRACTICE 01/13/19 07/10/24 Kole Sapp DO [address] [place] [address] PCP - General FAMILY PRACTICE 07/11/24 Sadiq Brooks MD [address] [place] [address] CARDIOVASCULAR DISEASE 02/05/17 Gaetano Steward MD [address] [place] [address] [place] Sales Recruiting Coordinator CARDIOVASCULAR DISEASE 02/02/18 07/26/24 documented as of this encounter
--- NOTE | 2024-12-14 17:56 | ED.MALEGU ---
HPI - Male Genitourinary General Chief complaint: Urogenital-Male Stated complaint: cook leaking after placement Source: patient Mode of arrival: ambulatory Limitations: no limitations History of Present Illness HPI Narrative: Patient with a history of BPH that had a Cook replaced earlier today but returns to the ER after there was some urine that was leaking around the Cook catheter. Otherwise patient was diagnosed with UTI and started on antibiotics there is no hematuria no flank pain no fever chills. Onset (ago): hour(s) Duration: constant Related Data Home Medications ?Medication ?Instructions ?Recorded ?Confirmed ?Last Taken ?Type aspirin 81 mg tablet,delayed 81 mg PO DAILY 01/05/24 11/16/24 Unknown History release ferrous sulfate 325 mg (65 mg 325 mg PO DAILY 07/20/24 11/16/24 Unknown History iron) tablet Allergies Allergy/AdvReac Type Severity Reaction Status Date / Time No Known Allergies Allergy Verified 12/14/24 09:42 Review of Systems Review of Systems: All systems reviewed & are unremarkable except as noted in HPI and below PMFSH Past Medical History Medical History Emphysema lung BPH (benign prostatic hyperplasia) HLD (hyperlipidemia) Family History Family History Father Diabetes mellitus Mother Diabetes mellitus Other Heart disease Social History Social History Smoking status: Former smoker Alcohol intake: former Substance use: never Do You Feel Safe in your Home?: Yes Lack of Transportation: No Lack of Food: Never True Gender identity (if verbalized by the patient): Male Sexual Orientation (if Verbalized by the Patient): Straight or Heterosexual Exam Const: General: healthy appearing Nutritional Appearance: well nourished Limitations: no limitations Cardio: Rate: regular rate Rhythm: regular rhythm GI: GI Palp: Yes Soft to palpation Auscultation: normal bowel sounds : General: Yes bladder normal to palpation Urinary Catheter: Urinary Catheter: patent and draining and urine clear Extrem: General: normal to inspection, no clubbing, cyanosis or edema and no pedal edema Course Course Emergency Course: Medical decision making narrative: The patient was evaluated by myself in the emergency department. History obtained from the patient was an independent historian physical exam performed and witnessed by nurse. Patient was seen earlier today and had a Cook catheter exchange but returns to the emergency department because of leakage around the Cook catheter and had it replaced with a larger gauge catheter. Patient on after repeat assessment doing well with no acute distress Symptoms improved since arrival to the ED. blood pressure currently 164/70. Patient agrees with discussion and after shared medical decision making and agrees with discharge. All answer all questions answered to the patient's satisfaction. Advised follow-up in 3 to 5 days. Vital Signs Vital signs: Vital Signs Temperature 36.4 C 12/14/24 17:27 Pulse Rate 84 12/14/24 17:27 Respiratory Rate 22 H 12/14/24 17:27 Blood Pressure 193/99 H 12/14/24 17:27 Pulse Oximetry 97 12/14/24 17:27 Oxygen Delivery Room Air 12/14/24 17:27 Temperature 36.4 C 12/14/24 17:27 Pulse Rate 84 12/14/24 17:27 Respiratory Rate 22 H 12/14/24 17:27 Blood Pressure 193/99 H 12/14/24 17:27 Pulse Oximetry 97 12/14/24 17:27 Oxygen Delivery Room Air 12/14/24 17:27 Critical Care Time Critical Care Time Critical Care Time: No Discharge Plan Discharge Clinical Impression: Cook catheter problem Qualifiers: Encounter type: initial encounter Qualified Code(s): T83.9XXA - Unspecified complication of genitourinary prosthetic device, implant and graft, initial encounter Patient Disposition: Home Condition: Stable Instructions: Antibiotic Form, Cook Catheter Placement and Care (ED) Additional Instructions: Advised follow-up with Primary/urologist in the next 3 to 5 days further evaluation and treatment. Patient Language: South Korean Prescriptions: No Action sulfamethoxazole-trimethoprim [Bactrim DS] 800-160 mg tablet 1 tablet PO Q12H Qty: 14 0RF ferrous sulfate 325 mg (65 mg iron) tablet 325 mg PO DAILY aspirin 81 mg tablet,delayed release (DR/EC) 81 mg PO DAILY albuterol sulfate 90 mcg/actuation HFA aerosol inhaler 1 inh inhalation Q4H Qty: 8.5 0RF allopurinol 300 mg tablet 300 mg PO DAILY Qty: 30 0RF atorvastatin 20 mg tablet See Rx Instructions .ROUTE .COMPLEX Qty: 90 0RF Dose Instruction: TAKE 1 (ONE) TABLET AT BEDTIME FOR CHOLESTEROL Rx Instructions: TAKE 1 (ONE) TABLET AT BEDTIME FOR CHOLESTEROL Breztri Aerosphere 160-9-4.8 mcg/actuation HFA aerosol inhaler 2 inh inhalation BID Qty: 10.7 10RF levothyroxine 150 mcg tablet See Rx Instructions .ROUTE .COMPLEX Qty: 30 0RF Dose Instruction: TAKE ONE TABLET BY MOUTH DAILY Rx Instructions: TAKE ONE TABLET BY MOUTH DAILY omeprazole 20 mg capsule,delayed release(DR/EC) See Rx Instructions .ROUTE .COMPLEX Qty: 90 1RF Dose Instruction: TAKE ONE CAPSULE BY MOUTH DAILY ON EMPTY STOMACH Rx Instructions: TAKE ONE CAPSULE BY MOUTH DAILY ON EMPTY STOMACH sodium chloride 1,000 mg tablet,soluble 1,000 mg PO DAILY Qty: 90 0RF tamsulosin 0.4 mg capsule See Rx Instructions .ROUTE .COMPLEX Qty: 90 0RF Dose Instruction: TAKE ONE CAPSULE BY MOUTH DAILY FOR PROSTATE Rx Instructions: TAKE ONE CAPSULE BY MOUTH DAILY FOR PROSTATE solifenacin 5 mg tablet See Rx Instructions .ROUTE .COMPLEX Qty: 30 1RF Dose Instruction: TAKE ONE TABLET BY MOUTH DAILY Rx Instructions: TAKE ONE TABLET BY MOUTH DAILY Follow-up/Referrals: Kole Sapp DO [Primary Care Provider, Family Practice] Time of Disposition: 18:00
[2024-12-14 18:00] VITALS: BP 164/70; PULSE 76; RESP 20; O2SAT 97
--- NOTE | 2024-12-18 14:39 | PC.NURSE ---
PRELIMINARY URINE CULTURE REPORT; STENOTROPHOMONAS MALTOPHILIA, WILL WAIT FOR FINAL CULTURE AND SENSATIVITY.
--- NOTE | 2024-12-19 14:15 | PC.NURSE ---
FINAL URINE CULTURE RESULTS: COAG NEGATIVE STAPH SPECIES AND STENOTROPHOMONAS MALTOPHILIA. ORIGINAL TREATMENT PLAN OF BACTRIM NOT SUSCEPTIBLE. MD DARION INSTRUCTS TO D/C BACTRIM AND 100 MG DOXYCYCLINE PO BID X 10 DAYS CALLED INTO PT PHARMACY. RN SPEAKS WITH PT ABOUT NEW TREATMENT PLAN TO D/D CURRENT ANTIBIOTICS AND START NEW ANTIBIOTICS.
== END 2024-12-14 18:02 | disposition home or self-care (01) ==
PROVIDERS: Emergency Provider Emergency Medicine; PCP Family Medicine
DX: T83.9XXA Unspecified complication of genitourinary prosthetic device, implant and graft, initial encounter (principal); J43.9 Emphysema, unspecified; E78.5 Hyperlipidemia, unspecified; Z87.891 Personal history of nicotine dependence
CPT/HCPCS: 51702; 99283

== ENCOUNTER 2025-01-03 08:29 | Emergency (ER) | payer OTHER, SELFPAY ==
[2025-01-03 08:30] VITALS: BP 185/96; PULSE 76; RESP 18; TEMP 36.6; O2SAT 99
--- NOTE | 2025-01-03 08:37 | ED_ITS ---
HPI - Male Genitourinary General Chief complaint: Urogenital-Male Stated complaint: Catheter fell out Time Seen by Provider: 01/03/25 08:36 Source: patient Mode of arrival: ambulatory Limitations: no limitations History of Present Illness HPI Narrative: Patient is a 64-year-old male with a chronic Gaona catheter due to enlarged prostate in which the catheter fell out today. Patient is here for replacement of Gaona catheter. No other complaints. MD Complaint: other (Urinary catheter has fallen out today) Onset (ago): day(s) (1) Duration: constant Location: penis Radiation: penis Severity: mild Severity scale (1-10): 1 Quality: other (No pain) Relieving factors: urination Exacerbating factors: palpation Context: other (Patient has a chronic indwelling Gaona catheter with BPH here for a Gaona catheter displacement this morning) Associated symptoms: Reports denies other symptoms Related Data Sexually active: No Home Medications ?Medication ?Instructions ?Recorded ?Confirmed ?Last Taken ?Type aspirin 81 mg tablet,delayed 81 mg PO DAILY 01/05/24 1 Unknown History release ferrous sulfate 325 mg (65 mg 325 mg PO DAILY 07/20/24 11/16/24 Unknown History iron) tablet doxycycline hyclate 100 mg capsule 100 mg PO DAILY 08/09 Unknown History hydrochlorothiazide 12.5 mg capsule 12.5 mg PO DAILY 1 02/21/24 Unknown History furosemide 80 mg tablet mg 01/03/25 Unknown History Allergies Allergy/AdvReac Type Severity Reaction Status Date / Time No Known Allergies Allergy Verified 01/03/25 08:37 Review of Systems Review of Systems: All systems reviewed & are unremarkable except as noted in HPI and below Constitutional: Constitutional: Reports no additional constitutional complaints Eyes: Eyes: Reports no additional eye complaints ENT: Reports system reviewed and no additional complaints, except as documented Cardiovascular: Cardiovascular: Reports no additional cardiovascular compl aints Respiratory: Respiratory: Reports no additional respiratory complaints Gastrointestinal: Gastrointestinal: Reports no additional gastrointestinal complaints Genitourinary: Genitourinary: Reports no additional male genitourinary comp laints Musculoskeletal: Musculoskeletal: Reports no additional musculoskeletal complaints Integumentary/Breasts: Skin/Breast: Reports system reviewed and no additional complaints, except as docu Neurologic: Reports system reviewed and no additional complaints, except as documented Psychiatric: Psychiatric: Reports no additional psychiatric complaints Endocrine: Endocrine: Reports no additional endocrine complaints Hematologic/Lymphatic: Hematologic/Lymphatic: Reports no additional hematologic/lymphatic complaints Allergic/Immunologic: Allergic/Immunologic: Reports no additional allergic/immunologic complaints [facility] Past Medical History Medical History Emphysema lung BPH (benign prostatic hyperplasia) HLD (hyperlipidemia) Family History Family History Father Diabetes mellitus Mother Diabetes mellitus Other Heart disease Social History Social History Smoking status: Former smoker Alcohol intake: former Substance use: never Do You Feel Safe in your Home?: Yes Lack of Transportation: No Lack of Food: Never True Gender identity (if verbalized by the patient): Male Sexual Orientation (if Verbalized by the Patient): Straight or Heterosexual Exam Const: General: healthy appearing Nutritional Appearance: well nourished Limitations: no limitations HENMT: Head: normal to inspection Ears: TM's normal bilaterally Face/Nose/Sinus: Normal external nose present Eyes: Conjunctivae: conjunctivae normal Pupils: Equal, round and reactive pupils present EOM: EOMs intact bilaterally Neck: Neck: normal visual inspection Chest: Chest palpation & inspection: normal inspection of the chest Resp: Effort & Inspection: normal respiratory effort and not labored Auscultation: clear to auscultation bilaterally and no crackles Cardio: Rate: regular rate Rhythm: regular rhythm Heart sounds: no murmurs GI: Inspection: non-distended GI Palp: Yes Soft to palpation and No Tenderness to palpation present (GI) Auscultation: normal bowel sounds : General: Yes bladder normal to palpation Penis: Yes normal penis (Hypospadia is a chronically per RN) Back/Spine/Pelvis: Back: no CVA tenderness Skin: General skin exam: normal color Rashes: no rashes Wounds: no wounds Neuro: General: patient oriented x3, moves all extremities and no meningeal signs Extrem: General: normal to inspection, no clubbing, cyanosis or edema and no pedal edema Psych: Mental Status: mental status grossly normal Affect: normal affect Attitude: cooperative Course Vital Signs Vital signs: Vital Signs Temperature 36.6 C 01/03/25 08:30 Pulse Rate 76 01/03/25 08:30 Respiratory Rate 18 01/03/25 08:30 Blood Pressure 185/96 H 01/03/25 08:30 Pulse Oximetry 99 01/03/25 08:30 Oxygen Delivery Room Air 01/03/25 08:30 Temperature 36.6 C 01/03/25 08:30 Pulse Rate 76 01/03/25 08:30 Respiratory Rate 18 01/03/25 08:30 Blood Pressure 185/96 H 01/03/25 08:30 Pulse Oximetry 99 01/03/25 08:30 Oxygen Delivery Room Air 01/03/25 08:30 MDM - Male Genitourinary MDM Narrative Medical decision making narrative: Patient is a 64-year-old male with an indwelling Gaona catheter that has fallen out today. We will replace the catheter and check a UA. Discharge Plan Discharge Clinical Impression: BPH with urinary obstruction, Chronic indwelling Gaona catheter Patient Disposition: Home Condition: Stable Instructions: Gaona Catheter Placement and Care (ED) Additional Instructions: Please follow-up with the primary doctor in the next week. You will need to have this changed in 30 days routine care. Patient Language: Mosotho Prescriptions: No Action sulfamethoxazole-trimethoprim [Bactrim DS] 800-160 mg tablet 1 tablet PO Q12H Qty: 14 0RF furosemide 80 mg tablet ferrous sulfate 325 mg (65 mg iron) tablet 325 mg PO DAILY doxycycline hyclate 100 mg capsule 100 mg PO DAILY hydrochlorothiazide 12.5 mg capsule 12.5 mg PO DAILY aspirin 81 mg tablet,delayed release (DR/EC) 81 mg PO DAILY albuterol sulfate 90 mcg/actuation HFA aerosol inhaler 1 inh inhalation Q4H Qty: 8.5 0RF allopurinol 300 mg tablet 300 mg PO DAILY Qty: 30 0RF atorvastatin 20 mg tablet See Rx Instructions .ROUTE .COMPLEX Qty: 90 0RF Dose Instruction: TAKE 1 (ONE) TABLET AT BEDTIME FOR CHOLESTEROL Rx Instructions: TAKE 1 (ONE) TABLET AT BEDTIME FOR CHOLESTEROL Breztri Aerosphere 160-9-4.8 mcg/actuation HFA aerosol inhaler 2 inh inhalation BID Qty: 10.7 10RF levothyroxine 150 mcg tablet See Rx Instructions .ROUTE .COMPLEX Qty: 30 0RF Dose Instruction: TAKE ONE TABLET BY MOUTH DAILY Rx Instructions: TAKE ONE TABLET BY MOUTH DAILY omeprazole 20 mg capsule,delayed release(DR/EC) See Rx Instructions .ROUTE .COMPLEX Qty: 90 1RF Dose Instruction: TAKE ONE CAPSULE BY MOUTH DAILY ON EMPTY STOMACH Rx Instructions: TAKE ONE CAPSULE BY MOUTH DAILY ON EMPTY STOMACH tamsulosin 0.4 mg capsule See Rx Instructions .ROUTE .COMPLEX Qty: 90 0RF Dose Instruction: TAKE ONE CAPSULE BY MOUTH DAILY FOR PROSTATE Rx Instructions: TAKE ONE CAPSULE BY MOUTH DAILY FOR PROSTATE solifenacin 5 mg tablet See Rx Instructions .ROUTE .COMPLEX Qty: 30 1RF Dose Instruction: TAKE ONE TABLET BY MOUTH DAILY Rx Instructions: TAKE ONE TABLET BY MOUTH DAILY Follow-up/Referrals: Kole Sapp DO [Primary Care Provider, [facility]] Time of Disposition: 09:05
[2025-01-03 09:09] LABS: Add Urine Microscopic? YES; Appearance Urine Clear (Clear); Glucose Urine UA Negative (Negative); Leukocyte Esterase Ur Trace LEU/UL (Negative); Nitrate Urine Negative (Negative); Specific Grav Ur <= 1.005 (1.010-1.020)
--- NOTE | 2025-01-05 13:43 | PC.NURSE ---
FINAL URINE CC CULTURE NO GROWTH
== END 2025-01-03 09:29 | disposition home or self-care (01) ==
PROVIDERS: Emergency Provider Emergency Medicine; PCP Family Medicine
DX: N40.0 Benign prostatic hyperplasia without lower urinary tract symptoms (principal); E78.5 Hyperlipidemia, unspecified; J43.9 Emphysema, unspecified; Z87.891 Personal history of nicotine dependence; Z79.899 Other long term (current) drug therapy; Z96.0 Presence of urogenital implants
CPT/HCPCS: 51702; 81001; 87086; 99283

== ENCOUNTER 2025-01-19 13:13 | Outpatient (CLI) | payer OTHER, SELFPAY ==
--- NOTE | ~2025-01-19 | US_ITS ---
Clinical History: I65.29 - Occlusion and stenosis of unspecified carotid ar... Examination: US carotid duplex BI Comparison: None Technique: Grayscale, color, duplex/spectral Doppler sonography carotid and vertebral arteries. Distal CCA and Peak ICA systolic velocities provided. Society of Radiologists in Ultrasound (SRU) consensus criteria utilized, indirectly assessing stenosis by velocities. Findings: Extensive plaque right side. Left side excluded. Right side: CCA - 92 cm/sec. ICA - 419 cm/sec. ICA/CCA - 5.8 Left Side: Occluded Normal antegrade flow measured bilateral vertebral arteries. IMPRESSION: 1. Greater than 70% stenosis right ICA. 2. Occluded left common and internal carotid arteries. 3. Normal bilateral antegrade vertebral artery flow. Stenosis measured by Society of Radiologists in Ultrasound (SRU) criteria. Reviewed, dictated and finalized at location [facility]. [employer]
== END 2025-01-19 13:14 | disposition home or self-care (01) ==
LOC: CHSIMG 13:15
PROVIDERS: PCP Family Medicine; Visit Provider Internal Medicine Cardiovascular Disease
DX: I65.23 Occlusion and stenosis of bilateral carotid arteries (principal)
CPT/HCPCS: 93880